=== PATIENT | female | born 1935 | race Caucasian/White ===

== ENCOUNTER 2016-05-17 18:49 | Emergency (ER) | payer OTHER ==
[~2016-05-17] VITALS: Ht 144.8 cm; Wt 47.0 kg
[~2016-05-17 18:49] MED LIST: ASCA500 PO; OMEG10007 PO; VITA100C4 PO; XNX25 PO
[2016-05-17 18:55] VITALS: TEMP 36.7; Ht 144.8 cm; Wt 47.0 kg
[2016-05-17] MEDS ORDERED: OPTIRAY 320 IV PRN (20:15)
[2016-05-17 20:31] LABS: BASO % 0.4 %; BASO ABS # 0.03 K/uL (0-0.2); COMPLETE YES; EOS % 1.9 %; HEMATOCRIT 36.8 % (37-47); IG% 0.1 %; LYMPH % 22.8 %; LYMPH ABS # 1.64 K/uL (1.2-3.4); MEAN CELL VOLUME 83.4 fL (80-100); MEAN CORPUSCULAR HEMOGLOBIN 27.9 pg (25-34); MEAN CORPUSCULAR HGB CONC 33.4 g/dl (32-36); MEAN PLATELET VOLUME 10.1 fL (7.4-10.4); MONO % 7.7 %; NEUT % 67.1 %; PLATELET COUNT 218 K/uL (130-400); RED BLOOD COUNT 4.41 M/uL (4.2-5.4); WHITE BLOOD COUNT 7.18 K/uL (4.8-10.8)
--- NOTE | 2016-05-17 20:31 | EMERGENCY ROOM VISIT NOTE ---
History Report prepared by Leigh: Sergio Wyatt Under the Supervision of: Dr. Shola Fay M.D. First contact with patient: 19:54 Chief Complaint: FALL Stated Complaint: DIZZINESS,BACKPAIN, 2 FALLS History of Present Illness The patient is a 80 year old female who presents to the Emergency Room with complaints of severe back pain starting about a week and a half ago. The patient has chronic knee problems which have been making her increasingly off balance for the past few weeks. She normally uses a walker or crutches to ambulate. She reports hitting her head in both falls. She also complains of neck pain and left sided abdominal pain. She has worsening pain with movement. She denies loss of consciousness, chest pain, shortness of breath, or any other complaints. Source of History: patient, family Onset: about a week and a half ago Position: back Symptom Intensity: severe Modifying Factors (Worsening): movement Associated Symptoms: + abdominal pain, + neck pain, No LOC, No SOB, No chest pain Review of Systems See HPI for pertinent positives & negatives. A total of 10 systems reviewed and were otherwise negative. Past Medical & Surgical Medical Problems: (1) Fibromyalgia (2) Left wrist pain (3) Left wrist sprain (4) Right wrist pain (5) Right wrist sprain (6) TIA (transient ischemic attack) Old medical records were reviewed. Nurse's notes were reviewed and I agree with. Family History FH: heart disease Social History Smoking Status: Never Smoker Alcohol Use: none Drug Use: none Housing Status: lives with family Current/Historical Medications Scheduled Ascorbic Acid (Ascorbic Acid), 1,000 MG PO DAILY Fish Oil ([place]-3), 1 CAP PO DAILY Tocopheryl Acet,Dl-Alpha (Vitamin E), 100 INTER.UNIT PO DAILY Scheduled PRN Alprazolam (Xanax *), 0.25 MG PO BID PRN for Anxiety Meclizine HCl (Meclizine HCl), 25 MG PO TID PRN for Nausea Allergies Coded Allergies: Acetaminophen (Unverified Allergy, Severe, "HALLUCINATION,DREAM HORRIBLY" , 05/17/16) Hydrocodone (Unverified Allergy, Severe, "HALLUCINATION,DREAM HORRIBLY", ) Oxycodone (Unverified Allergy, Severe, "HALLUCINATION,DREAM HORRIBLY", 05/17) Physical Exam Vital Signs Date Time Temp Pulse Resp B/P Pulse Ox O2 Delivery O2 Flow Rate FiO2 05/18/16 00:00 68 18 164/86 95 05/17/16 23:15 79 18 160/115 96 Room Air 05/17/16 20:39 65 05/17/16 20:28 73 154/57 98 05/17/16 18:55 36.7 76 18 162/74 95 Room Air Physical Exam General: Non-ill appearing, older female, in no acute distress. HEENT: Normal cephalic atraumatic. Pupils are equal round and reactive to light. Sclerae anicteric. Extraocular movements are intact. Oropharynx is pink with moist mucous membranes. No swelling of the mouth lips or tongue. Neck: Supple with a midline trachea. No meningeal signs or stiffness, no JVD or bruits. No Stridor. Chest: Clear to auscultation bilaterally. No wheezes or rhonchi. No increased work of breathing. Heart: regular rate and rhythm. Abdomen: Soft nontender, nondistended without rebound guarding or rigidity. Extremities: No cyanosis clubbing or edema. No calf tenderness. Chronic deformity of the right knee with lateral displacement of the distal part. Spine/Back. Non tender to palpation. No CVA tenderness Skin: Good turgor without rashes. Neurologic exam: Cranial nerves two through 12 are intact. Motor and sensation are intact and symmetrical throughout. Medical Decision & Procedures ER Provider Diagnostic Interpretation: X ray results as stated below per my interpretation and radiologist interpretation. CT results as stated below per my review and radiologist interpretation: ABDOMEN AND PELVIS CT WITH IV CONTRAST CT DOSE: HISTORY: Trauma eval for trauma TECHNIQUE: Multiaxial CT images of the abdomen and pelvis were performed following the use of intravenous contrast. COMPARISON STUDY: None. FINDINGS: Mild bibasilar atelectasis. Liver and spleen are unremarkable. Stable 1.5 cm cystic nodule mid pancreas. Nonobstructive bowel pattern. Bladder is midline. The lateral hip arthroplasties. IMPRESSION: No acute posttraumatic process of the abdomen or pelvis. Stable 1.5 cm cystic nodule mid pancreas Electronically signed by: Luke Rodriguez M.D. 05/17/2016 9:[address] DOSE: HISTORY: Trauma. Pain. eval for trauma TECHNIQUE: Multiaxial CT images of the cervical spine were performed and reformatted in the sagittal and coronal plane without the use of contrast. COMPARISON: None. FINDINGS: Vertebral body stature is unremarkable. Reversal of normal cervical curvature. Grade 1/grade 2 anterolisthesis C4 on C5 felt to be degenerative in nature. Degenerative changes of posterior elements. Generalized degenerative disc changes throughout. Prevertebral soft tissues are unremarkable. IMPRESSION: Severe degenerative change. No acute bony abnormality. Electronically signed by: Luke Rodriguez M.D. 05/17/2016 9:[address] WITH CONTRAST CT DOSE: HISTORY: Trauma. Pain. eval for trauma TECHNIQUE: Multiaxial CT images of the chest were performed following the intravenous administration of contrast. COMPARISON: None. FINDINGS: Scattered platelike atelectasis. Thoracic aorta is unremarkable. No significant mediastinal or hilar adenopathy. No evidence pneumothorax. Several old right-sided rib fractures. No well-defined acute bony abnormality. IMPRESSION: No significant abnormality identified within the chest. Electronically signed by: Luke Rodriguez M.D. 05/17/2016 9:46 PM CHEST ONE VIEW PORTABLE CLINICAL HISTORY: CHEST PAIN dyspnea COMPARISON STUDY: 01/30/2011 FINDINGS: Chronic bilateral fibrotic change. No focal infiltrate. Chronic atelectasis left base. Calcification mitral annulus. Severe degenerative change of the shoulders bilaterally. IMPRESSION: Chronic change. No acute process. Electronically signed by: Luke Rodriguez M.D. 05/17/2016 8:[address]AST CT DOSE: HISTORY: Trauma. Mental status change. eval for trauma TECHNIQUE: Multiaxial CT images of the head were performed without the use of intravenous contrast. Comparison: None. Findings: The paranasal sinuses and mastoid air cells are clear. The calvarium and skull base are intact. The ventricles and sulci are within normal limits. There is no mass, hematoma, midline shift, or acute infarct. Impression: No acute intracranial abnormality. Electronically signed by: Luke Rodriguez M.D. 05/17/2016 9:[address] DOSE: 1627.55 mGy.cm HISTORY: Pain trauma TECHNIQUE: Multiaxial CT images of the lumbar spine were performed and reformatted in the sagittal and coronal plane without the use of contrast. COMPARISON: None. FINDINGS: Moderate S-shaped scoliosis. Generalized degenerative change. Mild concave deformity L5 considered nonacute. Slight compression deformity L1 potentially subacute. As shape scoliosis. IMPRESSION: Significant degenerative change throughout the entire lumbar spine. 2. Slight wedge deformity superior aspect of L1 potentially subacute. No compromise of the spinal canal. 3. Old mild wedge deformity L5. Electronically signed by: Luke Rodriguez M.D. 05/17/2016 9:39 PM Laboratory Results 05/17/16 20:20 Red Blood Count 4.41, Mean Corpuscular Volume 83.4, Mean Corpuscular Hemoglobin 27.9, Mean Corpuscular Hemoglobin Concent 33.4, Mean Platelet Volume 10.1, Neutrophils (%) (Auto) 67.1, Lymphocytes (%) (Auto) 22.8, Monocytes (%) (Auto) 7.7, Eosinophils (%) (Auto) 1.9, Basophils (%) (Auto) 0.4, Neutrophils # (Auto) 4.81, Lymphocytes # (Auto) 1.64, Monocytes # (Auto) 0.55, Eosinophils # (Auto) 0.14, Basophils # (Auto) 0.03 05/17/16 20:20 Test 05/17/16 20:20 05/17/16 20:24 White Blood Count 7.18 K/uL (4.8-10.8) Red Blood Count 4.41 M/uL (4.2-5.4) Hemoglobin 12.3 g/dL (12.0-16.0) Hematocrit 36.8 % (37-47) Mean Corpuscular Volume 83.4 fL (80-100) Mean Corpuscular Hemoglobin 27.9 pg (25-34) Mean Corpuscular Hemoglobin Concent 33.4 g/dl (32-36) Platelet Count 218 K/uL (130-400) Mean Platelet Volume 10.1 fL (7.4-10.4) Neutrophils (%) (Auto) 67.1 % Lymphocytes (%) (Auto) 22.8 % Monocytes (%) (Auto) 7.7 % Eosinophils (%) (Auto) 1.9 % Basophils (%) (Auto) 0.4 % Neutrophils # (Auto) 4.81 K/uL (1.4-6.5) Lymphocytes # (Auto) 1.64 K/uL (1.2-3.4) Monocytes # (Auto) 0.55 K/uL (0.11-0.59) Eosinophils # (Auto) 0.14 K/uL (0-0.5) Basophils # (Auto) 0.03 K/uL (0-0.2) RDW Standard Deviation 43.0 fL (36.4-46.3) RDW Coefficient of Variation 14.0 % (11.5-14.5) Immature Granulocyte % (Auto) 0.1 % Immature Granulocyte # (Auto) 0.01 K/uL (0.00-0.02) Prothrombin Time 10.4 SECONDS (9.0-12.0) Prothromb Time International Ratio 1.0 (0.9-1.1) Activated Partial Thromboplast Time 28.1 SECONDS (21.0-31.0) Partial Thromboplastin Ratio 1.1 Anion Gap 8.0 mmol/L (3-11) Est Creatinine Clear Calc Drug Dose 56.9 ml/min Estimated GFR () 104.8 Estimated GFR (Non- 90.4 BUN/Creatinine Ratio 31.1 (10-20) Calcium Level 9.1 mg/dl (8.5-10.1) Total Bilirubin 0.4 mg/dl (0.2-1) Direct Bilirubin 0.1 mg/dl (0-0.2) Aspartate Amino Transf (AST/SGOT) 21 U/L (15-37) Alanine Aminotransferase (ALT/SGPT) 19 U/L (12-78) Alkaline Phosphatase 139 U/L (45-117) Troponin I < 0.015 ng/ml (0-0.045) Total Protein 7.0 gm/dl (6.4-8.2) Albumin 3.7 gm/dl (3.4-5.0) Lipase 222 U/L (73-393) Bedside Troponin I 0.140 ng/ml (0-0.045) Laboratory studies as stated above per my review. ECG Indication: back/shoulder pain Rate (beats per minute): 63 Rhythm: normal sinus Findings: other (Nonspecific ST abnormality) Comparison ECG Date: January 30, 2011 Change: no significant change ED Course 1953: Past medical records reviewed. The patient was evaluated in room A04A, and a complete history and physical examination were performed. 2330: Upon reevaluation, the patient is resting comfortably. I discussed the results and treatment plan with her. She verbalized agreement of the treatment plan. The patient was discharged home. Medical Decision Differential diagnosis includes but is not limited to syncope, arrhythmia, concussion, traumatic injuries, rib fractures , orthopedic injuries. This patient comes in as described above. She was placed in room A4. She is here for treatment and evaluation of 2 falls. She does tend to fall as she has a chronic deformity of her right leg that they're supposed to get surgery on at some point. She has to walk with a crutch for this. She did hit her head and was concerned about that she also some other vague mild neck pain and pain in her lower chest/ upper abdomen from where she fell. She's had no chest pain or shortness of breath. She's had some back pain as well.. She has no neurologic deficits IV access was established. Blood work was obtained.EKG was obtained as well as multiple imaging. Her EKG does not suggest acute coronary syndrome or arrhythmia. Her initial point of care troponin was borderline elevated. We have been having some issues with the point of care machine today and I did run it in the lab and that troponin was 0 and I tend to believe the lab more than the point care machine. Additionally, she does not have any chest pain or syncope. I do not think is likely an acute cardiac event. CAT scan of the head , neck, chest, abdomen and pelvis were unremarkable exception of some degenerative changes in her back and may be at subacute compression fracture at the upper lumbar area. She does not want any pain medication and will just use ibuprofen or Aleve she says. She's no acute electrolyte or metabolic abnormalities. She feels good and would like to go home. Her blood pressures moderately elevated some this may be pain related. She's never had high blood pressure before and have her follow up with her regular doctor the next 1-2 days for recheck as well as to recheck her blood pressure. The patient and her son are happy with the plan and she was discharged home. Impression Primary Impression: Lumbar compression fracture Additional Impressions: Back pain, Concussion Scribe Attestation The scribe's documentation has been prepared under my direction and personally reviewed by me in its entirety. I confirm that the note above accurately reflects all work, treatment, procedures, and medical decision making performed by me. Departure Information Dispostion Home / Self-Care Referrals Erica Eli M.D. (PCP) Forms HOME CARE DOCUMENTATION FORM, IMPORTANT VISIT INFORMATION Patient Instructions A Signature Page, [facility] Additional Instructions Rest. Use ibuprofen if needed for pain Return if: Increasing pain, worsening symptoms, chest pain, shortness of breath , any new problems or concerns Follow-up with your doctor in 1-2 days to get rechecked and to get your blood pressure rechecked
--- NOTE | 2016-05-17 20:39 | DIAGNOSTIC IMAGING REPORT ---
CHEST ONE VIEW PORTABLE CLINICAL HISTORY: CHEST PAIN dyspnea COMPARISON STUDY: 01/30/2011 FINDINGS: Chronic bilateral fibrotic change. No focal infiltrate. Chronic atelectasis left base. Calcification mitral annulus. Severe degenerative change of the shoulders bilaterally. IMPRESSION: Chronic change. No acute process. Electronically signed by: Luke Rodriguez M.D. 05/17/2016 8:37 PM
[2016-05-17 20:40] LABS: PARTIAL THROMBOPLASTIN RATIO 1.1; PROTHROMBIN TIME (PATIENT) 10.4 SECONDS (9.0-12.0)
[2016-05-17 20:51] LABS: BUN/CREATININE RATIO 31.1 (10-20); CALCIUM 9.1 mg/dl (8.5-10.1); CREATININE 0.54 mg/dl (0.60-1.20); POTASSIUM 3.9 mmol/L (3.5-5.1)
--- NOTE | 2016-05-17 21:41 | DIAGNOSTIC IMAGING REPORT ---
LUMBAR SPINE CT CT DOSE: 1627.55 mGy.cm HISTORY: Pain trauma TECHNIQUE: Multiaxial CT images of the lumbar spine were performed and reformatted in the sagittal and coronal plane without the use of contrast. COMPARISON: None. FINDINGS: Moderate S-shaped scoliosis. Generalized degenerative change. Mild concave deformity L5 considered nonacute. Slight compression deformity L1 potentially subacute. As shape scoliosis. IMPRESSION: Significant degenerative change throughout the entire lumbar spine. 2. Slight wedge deformity superior aspect of L1 potentially subacute. No compromise of the spinal canal. 3. Old mild wedge deformity L5. Electronically signed by: Luke Rodriguez M.D. 05/17/2016 9:39 PM
--- NOTE | 2016-05-17 21:42 | DIAGNOSTIC IMAGING REPORT ---
HEAD CT NONCONTRAST CT DOSE: HISTORY: Trauma. Mental status change. eval for trauma TECHNIQUE: Multiaxial CT images of the head were performed without the use of intravenous contrast. Comparison: None. Findings: The paranasal sinuses and mastoid air cells are clear. The calvarium and skull base are intact. The ventricles and sulci are within normal limits. There is no mass, hematoma, midline shift, or acute infarct. Impression: No acute intracranial abnormality. Electronically signed by: Luke Rodriguez M.D. 05/17/2016 9:40 PM
--- NOTE | 2016-05-17 21:46 | DIAGNOSTIC IMAGING REPORT ---
CERVICAL SPINE CT CT DOSE: HISTORY: Trauma. Pain. eval for trauma TECHNIQUE: Multiaxial CT images of the cervical spine were performed and reformatted in the sagittal and coronal plane without the use of contrast. COMPARISON: None. FINDINGS: Vertebral body stature is unremarkable. Reversal of normal cervical curvature. Grade 1/grade 2 anterolisthesis C4 on C5 felt to be degenerative in nature. Degenerative changes of posterior elements. Generalized degenerative disc changes throughout. Prevertebral soft tissues are unremarkable. IMPRESSION: Severe degenerative change. No acute bony abnormality. Electronically signed by: Luke Rodriguez M.D. 05/17/2016 9:44 PM
--- NOTE | 2016-05-17 21:48 | DIAGNOSTIC IMAGING REPORT ---
CHEST CT WITH CONTRAST CT DOSE: HISTORY: Trauma. Pain. eval for trauma TECHNIQUE: Multiaxial CT images of the chest were performed following the intravenous administration of contrast. COMPARISON: None. FINDINGS: Scattered platelike atelectasis. Thoracic aorta is unremarkable. No significant mediastinal or hilar adenopathy. No evidence pneumothorax. Several old right-sided rib fractures. No well-defined acute bony abnormality. IMPRESSION: No significant abnormality identified within the chest. Electronically signed by: Luke Rodriguez M.D. 05/17/2016 9:46 PM
--- NOTE | 2016-05-17 21:52 | DIAGNOSTIC IMAGING REPORT ---
ABDOMEN AND PELVIS CT WITH IV CONTRAST CT DOSE: HISTORY: Trauma eval for trauma TECHNIQUE: Multiaxial CT images of the abdomen and pelvis were performed following the use of intravenous contrast. COMPARISON STUDY: None. FINDINGS: Mild bibasilar atelectasis. Liver and spleen are unremarkable. Stable 1.5 cm cystic nodule mid pancreas. Nonobstructive bowel pattern. Bladder is midline. The lateral hip arthroplasties. IMPRESSION: No acute posttraumatic process of the abdomen or pelvis. Stable 1.5 cm cystic nodule mid pancreas Electronically signed by: Luke Rodriguez M.D. 05/17/2016 9:50 PM
[2016-05-17] MEDS ORDERED: ASCO100061 PO (21:54)
[2016-05-17] MEDS ORDERED: ANT25 PO (21:55)
[2016-05-18] VITALS: BP 164/86; PULSE 68; O2SAT 95
== END 2016-05-18 | disposition home or self-care (01) ==
LOC: C.EDB 18:51 → C.EDA 05-18
DX: M48.56XA Collapsed vertebra, not elsewhere classified, lumbar region, initial encounter for fracture (principal); S06.0X0A Concussion without loss of consciousness, initial encounter; R29.6 Repeated falls; W19.XXXA Unspecified fall, initial encounter; M21.961 Unspecified acquired deformity of right lower leg; R93.5 Abnormal findings on diagnostic imaging of other abdominal regions, including retroperitoneum; Z86.73 Personal history of transient ischemic attack (TIA), and cerebral infarction without residual deficits; Z88.5 Allergy status to narcotic agent; Z88.6 Allergy status to analgesic agent

== ENCOUNTER → 2016-10-17 | Outpatient (CLI) | payer OTHER ==
[~2016-10-17] MED LIST changes: +ANT25 PO; -ASCA500 PO; +ASCO100061 PO
[2016-10-17 18:11] LABS: BLOOD UREA NITROGEN 11 mg/dl (7-18); CREATININE 0.59 mg/dl (0.60-1.20)
== END | disposition home or self-care (01) ==
LOC: C.LABMFLN 12:22
PROVIDERS: ATTEND Physician Assistant
DX: F07.81 Postconcussional syndrome (principal)

== ENCOUNTER → 2017-02-20 | Outpatient (CLI) | payer OTHER | END | disposition home or self-care (01) | LOC: C.PATHSPEC 07:58 | PROVIDERS: ATTEND Plastic Surgery | DX: H61.001 Unspecified perichondritis of right external ear (principal) ==

== ENCOUNTER → 2017-04-18 | Outpatient (CLI) | payer OTHER ==
[2017-04-18 18:19] LABS: BASO % 0.7 %; BASO ABS # 0.06 K/uL (0-0.2); COMPLETE YES; EOS % 1.1 %; HEMATOCRIT 38.9 % (37-47); IG% 0.2 %; LYMPH % 17.9 %; LYMPH ABS # 1.56 K/uL (1.2-3.4); MEAN CELL VOLUME 86.3 fL (80-100); MEAN CORPUSCULAR HEMOGLOBIN 27.7 pg (25-34); MEAN CORPUSCULAR HGB CONC 32.1 g/dl (32-36); MEAN PLATELET VOLUME 10.6 fL (7.4-10.4); NEUT % 71.1 %; PLATELET COUNT 260 K/uL (130-400); RED BLOOD COUNT 4.51 M/uL (4.2-5.4); WHITE BLOOD COUNT 8.73 K/uL (4.8-10.8)
[2017-04-18 18:24] LABS: BLOOD UREA NITROGEN 10 mg/dl (7-18); BUN/CREATININE RATIO 17.6 (10-20); CALCIUM 9.4 mg/dl (8.5-10.1); CARBON DIOXIDE 30 mmol/L (21-32); CHLORIDE 100 mmol/L (98-107); CREATININE 0.56 mg/dl (0.60-1.20); GLUCOSE 94 mg/dl (70-99); PHOSPHORUS 3.4 mg/dl (2.5-4.9); POTASSIUM 3.8 mmol/L (3.5-5.1); SODIUM 134 mmol/L (136-145)
== END | disposition home or self-care (01) ==
LOC: C.LABMFLN 16:08
PROVIDERS: ATTEND Family Medicine
DX: R03.0 Elevated blood-pressure reading, without diagnosis of hypertension (principal)

== ENCOUNTER 2023-11-04 13:32 | Inpatient (IN) ==
--- OUTSIDE RECORDS SUMMARY | 2023-11-04 13:38 | External Medical Summary | Summary of Care ---
Author Name Unknown Organization [facility] Address [address] [facility] [place] [address] Phone [phone] Care Team Providers Care Contact Lens Polisher Name Role Phone Davonte Nation PA-C Primary Care Provider [phone] Reason for Referral * Evaluate & Treat - Unlimited Visits (Within 10 days (routine)) - Authorized Specialty Diagnoses / Procedures Referred By Ramez grace Referred To Contact Physical Therapy / Physical Medicine And Rehab Diagnoses Ambulatory dysfunction History of falling Generalized osteoarthrosis, involving multiple sites Degeneration of cervical intervertebral disc Degeneration of lumbar or lumbosacral intervertebral disc Wilbert Cade MD [address] [place] [address] Referral ID Status Reason Start Date Expiration Date Visits Requested Visits Authorized [id number] Authorized Specialty Services Required 10/24/[phone] Question Answer Referral Priority Within 10 days (routine) Where should this appointment be scheduled? External Comments OT/PT evaluation for power wheelchair Reason for Visit * Reason Onset Date Comments Forms Request 10/23/2023 Encounter Details Date Type Department Care Team (Late st Contact Info) Description 10/23/2023 Telephone [facility] Blanca Rudolph [address] [address] Davonte Nation PA-C [address] [address] (work) Forms Request Allergies Active Allergy Reactions Criticality Noted Date Comments Zolpidem Other (Please comment) 09/04/2016 hallucinations Oxycodone-Acetaminophe n Other (Please comment) 02/26/2007 hallusanates documented as of this encounter (statuses as of 10/24/2023) Medications Medication Sig Dispensed Refills Start Date End Date Status Vitamin B-6 50 MG Oral Tablet Take 1 Tablet by mouth in the morning. Active Zinc 50 MG Oral Tablet Take 1 Tablet by mouth every night at bedtime. Active Acetaminophen 325 MG Oral Tablet (Tylenol) Take 2 Tablets by mouth every 6 hours as needed for Fever (Temp Greater than ) (100.4). Not to exceed 3g/24hrs Active Ibuprofen 600 MG Oral Tablet (Motrin) Take 1 Tablet by mouth every 6 hours as needed (for moderate pain (4-6)). Active Ensure Original Oral Liquid Take by mouth. As needed for dietary supplement. Do not exceed 2 bottles per day. Active ALPRAZolam 0.5 MG Oral Tablet (xaNAX)Indications:A nxiety Take 1 Tablet by mouth in the morning. BRAND NAME. 30 Tablet 5 06/26/2023 Active ALPRAZolam 0.25 MG Oral Tablet (xaNAX)Indications:G eneralized anxiety disorder Take one tablet at 12 PM and take one tablet at 6 PM. Brand Necessary 60 Tablet 5 10/23/2023 Active documented as of this encounter (statuses as of 10/24/2023) Active Problems Problem Noted Date Diagnosed Date History of falling 10/14/2023 Elevated blood pressure, situational 02/17/2021 Malignant neoplasm of endocrine pancreas 021 Ambulatory dysfunction 10/26/2019 IPMN (intraductal papillary mucinous neoplasm) 0 10/24/2019 Overview: Noted since 2006, unchanged. Age-related osteoporosis wit hout current pathological fracture 05/22/2019 Positive colorectal cancer screening using Colog uard test 11/07/2018 Generalized osteoarthrosis, involving multiple s ites 12/02/2013 Generalized anxiety disorder 12/02/2013 Degeneration of cervical intervertebral disc Pure hypercholesterolemia 12/02/2013 Degeneration of lumbar or lumbosacral interverte bral disc 12/02/2013 documented as of this encounter (statuses as of 10/24/2023) Resolved Problems Problem Noted Date Diagnosed Date Resolved Date Contusion of right orbital tissues 09/17/2022 01/02/2023 Dementia 09/17/2022 01/02/2023 Fall 09/17/2022 01/02/2023 Syncope and collapse 11/06/2018 019 Hyponatremia 11/06/2018 11/07/2018 Osteoporosis 12/02/2013 05/22/2019 Myalgia and myositis, unspecified 12/02/2013 04/20/2021 ADVANCE DIRECTIVE INFORMATION 09/17/2006 05/22/2019 Overview: No, Advance Directive brochure offered , patient declined. 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 Unclear if further evaluation is needed. documented as of this encounter (statuses as of 10/24/2023) Immunizations Name Administration Dates Next Due Pneumococcal Polysaccharide PPV23 (Pneumovax) () documented as of this encounter Social History Tobacco Use Types Packs/Day Years Used Date Smoking Tobacco: Never Smokeless Tobacco: Never Alcohol Use Standard Drinks/Week Comments No 0 (1 standard drink = 0.6 oz pur e alcohol) PHQ-2 Answer Date Recorded PHQ Adult Total Score 2 12/02/2021 Hunger Vital Sign Answer Date Recorded Within the past 12 months, y ou worried that your food would run out before you got the money to buy more. Never true 12/21/19 23 Within the past 12 months, t he food you bought just didn't last and you didn't have money to get more. Never true 12/20/2022 Sex and Gender Information Value Date Recorded Sex Assigned at Female 12/13/2018 1:55 PM EDT Gender Identity Female 12/13/2018 1:55 PM EDT Sexual Orientation Straight 12/13/2018 1: 55 PM EDT Job Start Date Occupation Industry Not on file Not on file Not on file documented as of this encounter Functional Status Functional Status Response Date of Assess ment Are you deaf or do you have serious difficulty hearing? 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 No 09/17/2022 Do you have serious difficul ty walking or climbing stairs? (5 years old or older) Yes 09/18/2022 Do you have difficulty dress ing or bathing? (5 years old or older) Yes-family helps 09/17/2022 Because of a physical, menta l, or emotional condition, do you have difficulty doing errands alone such as visiting a doctor s office or shopping? (15 years old or older) Yes-calls for transport 09/17/2022 Cognitive Status Response Date of Assessm ent Because of a physical, menta l, or emotional condition, do you have serious difficulty concentrating, remembering, or making decisions? (5 years old or older) No 09/17/2022 documented as of this encounter Miscellaneous Notes * Telephone Encounter - Davonte Nation PA-C - 10/24/2023 5:53 AM EDT DME signed * Telephone Encounter - Christine Hazel RN - 10/23/2023 9:09 AM EDT Call from pt's son Luke Pt received wheelchair from [facility] recently Per Luke, they actually wanted a power wheelchair Pt is unable to use manual wheelchair Reports she cannot reach the wheels very well and she has issues with her shoulders that prevent her from being able to maneuver wheelchair Call to [facility] [place], spoke with Tomeka in rehab dept For a power wheelchair, they need an order for a PT/OT eval, demographics, and most recent office visit notes faxed to [phone] Dr. Cade, Pending order to you as you saw pt for [id number] PT/OT eval order pended, please sign if agreeable documented in this encounter Plan of Treatment Upcoming Encounters Date Type Department Care Team (Late st Contact Info) Description 10/25/2023 12:00 PM EDT Home Visit [facility] [address] [place] [facility] [place] [address] [place] Esquivel [facility] Orchid Worker [address] [place] [address] 01/08/2024 12:00 PM EDT Office Visit [facility] [place] [address] [phone] Davonte Nation PA-C [address] [address] Scheduled Referrals Name Type Priority Associated Diagnoses Orde r Schedule PHYSICAL THERAPY REFERRAL OP Referral Within 10 days (routine) Ambulatory dysfunction History of falling Generalized osteoarthrosis, involving multiple sites Degeneration of cervical intervertebral disc Degeneration of lumbar or lumbosacral intervertebral disc Ordered: 10/24/2023 Health Maintenance Due Date Last Done Comments Albumin/Creatinine Ratio 09/03/1953 DTaP,Tdap,and Td Vaccines (1 - Tdap) 1956 Zoster Vaccines (1 of 2) 09/03/1987 Pneumococcal Vaccine: 65+ Years (1 of 1 - PCV) 2002 DXA Scan 07/11/2013 07/11/2011 *BISPHONATE OR OTHER ACCEPTABLE MEDICATION NEEDED FOR OSTEOPOROSIS (REFER TO SMARTSET #1146) 05/15/2014 Depression Screening 12/02/2022 12/02/2021 COVID-19 Vaccine ( - season) 2023 Influenza Vaccine (FLU shot) (Season Ended) 2024 VITAMIN D LEVEL ONCE IN A LIFETIME-USE SMARTSET# [id number] Completed 01/02/2023, 12/02/2021, 11/08/2020, Additional history exists GARDASIL-HPV IMMUNIZATION SERIES Aged Out No longer eligible based on patient's age to complete this topic Hepatitis B Aged Out No longer eligi ble based on patient's age to complete this topic MENINGOCOCCAL (MENACTRA/MENVEO) Aged Out No longer eligible based on patient's age to complete this topic documented as of this encounter Medical Devices Not on filedocumented as of this encounter Visit Diagnoses Diagnosis Ambulatory dysfunction- Primary History of falling Personal history of fall Elevated blood pressure, situational Elevated blood pressure reading without diagnosis of hypertension Generalized osteoarthrosis, involving multiple sites Degeneration of cervical intervertebral disc Degeneration of lumbar or lumbosacral intervertebral disc documented in this encounter Advance Directives Documents on File Type Date Recorded Patient Fruit Receiver Expl anation POLST 10/06/2022 [place] OR [facility] FOR LIFE-SUSTAINING TREATMENT * No Code (Latest Code Status on File) Date Activated Date Inactivated Comments 09/17/2022 6:19 PM 09/19/2022 10:01 PM This order re flects the patients wishes and were consensually agreed upon. Question Answer Comments Discussion of Advance Directives occurred with: Family * Full Code Date Activated Date Inactivated Comments 11/06/2018 2:57 AM 11/07/2018 8:53 PM This order r eflects the patients wishes and were consensually agreed upon. Question Answer Comments Discussion of Advance Directives occurred with: Not Discussed Care Teams Contact Lens Polisher Relationship Specialty Start Date End Date Davonte Nation PA-C [address] [address] PCP - General Physician Orchid Worker 04/22/22 documented as of this encounter
--- OUTSIDE RECORDS SUMMARY | 2023-11-04 13:38 | External Medical Summary | Summary of Care ---
Author Name Unknown Organization [facility] Address [address] [facility] [place] [address] Phone [phone] Care Team Providers Care Civil Engineer Helper Name Role Phone Davonte Olsen PA-C Primary Care Provider [phone] Reason for Referral * Evaluate & Treat - Unlimited Visits (Within 10 days (routine)) - Authorized Specialty Diagnoses / Procedures Referred By Ramez grace Referred To Contact Physical Therapy / Physical Medicine And Rehab Diagnoses Ambulatory dysfunction History of falling Generalized osteoarthrosis, involving multiple sites Degeneration of cervical intervertebral disc Degeneration of lumbar or lumbosacral intervertebral disc Wilbert Cade MD [address] [place] [address] Referral ID Status Reason Start Date Expiration Date Visits Requested Visits Authorized [id number] Authorized Specialty Services Required 10/24/2023 999 999 Question Answer Referral Priority Within 10 days (routine) Where should this appointment be scheduled? External Comments OT/PT evaluation for power wheelchair Reason for Visit * Reason Onset Date Comments Forms Request 10/23/2023 Encounter Details Date Type Department Care Team (Late st Contact Info) Description 10/23/2023 Telephone [facility] Blanca Rudolph [address] [address] Davonte Olsen PA-C [address] [address] (work) Forms [...] encounter Miscellaneous Notes * Telephone Encounter - Ivette Shafer OSA - 10/24/2023 7:15 AM EDT Order placed by laurence olsen faxed * Telephone Encounter - Davonte Olsen PA-C - 10/24/2023 5:53 AM EDT DME signed * Telephone Encounter - Christine Hazel RN - 10/23/2023 9:09 AM EDT Call from pt's son Luke Pt received wheelchair from [facility] recently Per Luke, they actually wanted a power wheelchair Pt is unable to use manual wheelchair Reports she cannot reach the wheels very well and she has issues with her shoulders that prevent her from being able to maneuver wheelchair Call to [facility] [place], spoke with Tomeka in rehab dept For a power wheelchair, they need an order for a PT/OT eval, demographics, and most recent office visit notes faxed to [phone] Dr. Cade, Pending order to you as you saw pt for [id number] PT/OT eval order pended, please sign if agreeable documented in this encounter Plan of Treatment Upcoming Encounters Date Type Department Care Team (Late st Contact Info) Description 10/25/2023 12:00 PM EDT Home Visit Care Coordination [facility] Integration [address] [place] [address] [facility] [address] [place] [address] 01/08/2024 12:00 PM EDT Office Visit [facility] [address] [phone] Davonte Olsen PA-C [address] [place] [address] Scheduled Referrals Name Type Priority Associated [...] 05/15/2014 Depression Screening 12/02/2022 12/02/2021 COVID-19 Vaccine (1 - 2022-24 season) 2023 Influenza Vaccine (FLU shot) (Season Ended) 2024 VITAMIN D LEVEL ONCE IN A LIFETIME-USE SMARTSET# [id number] Completed 01/02/2023, 12/02/2021, 11/08/2020, Additional history exists [...] Documents on File Type Date Recorded Patient Gunnery/Ordnance Officer Expl anation POLST 10/06/2022 [place] OR [facility] FOR LIFE-SUSTAINING TREATMENT * No Code (Latest [...] Directives occurred with: Not Discussed Care Teams Civil Engineer Helper Relationship Specialty Start Date End Date Davonte Olsen PA-C [address] [address] PCP - General Physician Information Technology Architect 04/22/22 documented as of this encounter
--- OUTSIDE RECORDS SUMMARY | 2023-11-04 13:38 | External Medical Summary | Summary of Care ---
Author Name Unknown Organization [facility] Address [address] [address] Phone [phone] Care Team Providers Care Regulatory Specialist Name Role Phone Davonte Nation PA-C Primary Care Provider [phone] Reason for Visit * Reason Comments eRx-Medication Refill Encounter Details Date Type Department Care Team (Late st Contact Info) Description 10/21/2023 [facility]ill [facility] [address] Davonte Nation PA-C [address] [email or web address] [place] [address] Anxiety Allergies Active Allergy Reactions Criticality Noted Date Comments Zolpidem Other (Please comment) 09/04/2016 hallucinations Oxycodone-Acetaminophe n Other (Please comment) 02/26/2007 hallusanates documented as of this encounter (statuses as of 10/23/2023) Medications Medication Sig Dispensed Refills Start Date [...] 06/26/2023 Active ALPRAZolam 0.25 MG Oral Tablet (xaNAX) Take one tablet at 12 PM and take one tablet at 6 PM. Brand Necessary 60 Tablet 2 06/27/2023 Active documented as of this encounter (statuses as of 10/23/2023) Active Problems Problem Noted Date Diagnosed Date [...] as of this encounter (statuses as of 10/23/2023) Resolved Problems Problem Noted Date Diagnosed Date [...] no change in this from 2006 to 2017. Unclear if further evaluation is needed. documented as of this encounter (statuses as of 10/23/2023) Immunizations Name Administration Dates Next Due Pneumococcal [...] encounter Miscellaneous Notes * Telephone Encounter - Jyotsna [facility] - 10/23/2023 7:51 AM EDTRefused Prescriptions: Disp Refills Xanax 0.5 MG Oral Tablet 60 Tab*0 Sig: Take 1 tablet by mouth twice daily as needed for anxietyRefused By: JYOTSNA GILBERT for Refusal: Refill Not Appropriat e documented in this encounter Plan of Treatment Upcoming Encounters Date Type Department Care Team (Late st Contact Info) Description 10/25/2023 12:00 PM EDT Home Visit Care Coordination and Integration [address] [place] [facility] [place] [address] [place] Esquivel [facility] [address] [place] [address] 01/08/2024 12:00 PM EDT Office Visit [facility] [address] [address] Davonte Nation PA-C [address] [place] [id number] Health Maintenance Due Date Last Done Comments [...] D LEVEL ONCE IN A LIFETIME-USE SMARTSET# [id number] Completed 01/02/2023, 12/02/2021, 11/08/2020, Additional history exists [...] as of this encounter Visit Diagnoses Diagnosis Anxiety Anxiety state, unspecified documented in this encounter Advance Directives Documents on File Type Date Recorded Patient Teller Head Expl anation POLST 10/06/2022 [place] OR [facility] FOR LIFE-SUSTAINING TREATMENT * No Code [...] Directives occurred with: Not Discussed Care Teams Regulatory Specialist Relationship Specialty Start Date End Date Davonte Nation PA-C [address] [address] PCP - General Physician Hangersmith 04/22/22 documented as of this encounter
--- OUTSIDE RECORDS SUMMARY | 2023-11-04 13:38 | External Medical Summary | Summary of Care ---
Author Name Unknown Organization [facility] Address [address] [facility] [place] [address] Phone [phone] Care Team Providers Care Metallurgical Tester Name Role Phone Davonte Olsen PA-C Primary Care Provider [phone] Reason for Referral * Evaluate & Treat - Unlimited Visits (Within 10 days (routine)) - Authorized Specialty Diagnoses / Procedures Referred By Ramez grace Referred To Contact Physical Therapy / Physical Medicine And Rehab Diagnoses Ambulatory dysfunction History of falling Generalized osteoarthrosis, involving multiple sites Degeneration of cervical intervertebral disc Degeneration of lumbar or lumbosacral intervertebral disc Wilbert Cade MD [address] [address] Referral ID Status Reason Start Date Expiration Date Visits Requested Visits Authorized [id number] Authorized Specialty Services Required 10/24/[phone] Question Answer Referral Priority Within 10 days (routine) Where should this appointment be scheduled? External Comments OT/PT evaluation for power wheelchair Reason for Visit * Reason Onset Date Comments Forms Request 10/23/2023 Fax 10/23/2023 Encounter Details Date Type Department Care Team (Late st Contact Info) Description 10/23/2023 Telephone [facility] [place] [address] [address] Davonte Olsen PA-C [address] [place] [address] Forms Request; Fax Allergies Active Allergy Reactions Criticality Noted Date Comments Zolpidem Other (Please comment) 09/04/2016 hallucinations Oxycodone-Acetaminophe n Other (Please comment) 02/26/2007 hallusanates documented as of this encounter (statuses as of 10/25/2023) Medications Medication Sig Dispensed Refills Start Date [...] as of this encounter (statuses as of 10/25/2023) Active Problems Problem Noted Date Diagnosed Date [...] as of this encounter (statuses as of 10/25/2023) Resolved Problems Problem Noted Date Diagnosed Date [...] as of this encounter (statuses as of 10/25/2023) Immunizations Name Administration Dates Next Due Pneumococcal [...] the money to buy more. Never true 10/25/19 24 Within the past 12 months, t he food you bought just didn't last and you didn't have money to get more. Never true 10/25/2023 Sex and Gender Information Value Date Recorded [...] encounter Miscellaneous Notes * Telephone Encounter - Ana Akins OSA - 10/25/2023 2:16 PM EDT Faxed notes successfully to [facility] * Telephone Encounter - Celina Mast OSA - 10/25/2023 9:08 AM EDT Caller requesting the following information to be faxed: Name/Company of caller: [facility] Information requested to be faxed: last office visit notes Fax number: [phone] Attention to Name/Company: [employer] Any additional information?: office notes needed to process the order for the power wheelchair * Telephone Encounter - Ivette Shafer OSA - 10/24/2023 7:15 AM EDT Order placed by laurence olsen faxed * Telephone Encounter - Davonte Olsen PA-C - 10/24/2023 5:53 AM EDT DME signed * Telephone Encounter - Christine Hazel RN - 10/23/2023 9:09 AM EDT Call from pt's son Luke [facility] Per Luke, they actually wanted a power wheelchair Pt is unable to use manual wheelchair Reports she cannot reach the wheels very well and she has issues with her shoulders that prevent her from being able to maneuver wheelchair [facility] [place], spoke with Tomeka in rehab dept For a power wheelchair, they need an order for a PT/OT eval, demographics, and most recent office visit notes faxed to [phone] Dr. Cade, Pending order to you as you saw pt for [id number] PT/OT eval order pended, please sign if agreeable documented in this encounter Plan of Treatment Upcoming Encounters Date Type Department Care Team (Late st Contact Info) Description 01/08/2024 12:00 PM EDT Office Visit [facility] [address] [phone] Davonte Olsen PA-C [address] [address] Scheduled Referrals Name Type Priority Associated Diagnoses [...] Depression Screening 12/02/2022 12/02/2021 COVID-19 Vaccine ( season) 2023 Influenza Vaccine (FLU shot) (Season Ended) 2024 VITAMIN D LEVEL ONCE IN A LIFETIME-USE SMARTSET# [id number] Completed 01/02/2023, 12/02/2021, 11/08/2020, Additional history exists [...] Documents on File Type Date Recorded Patient Human Resources Trainee Expl anation POLST 10/06/2022 [place] OR [facility] FOR LIFE-SUSTAINING TREATMENT * [...] Directives occurred with: Not Discussed Care Teams Metallurgical Tester Relationship Specialty Start Date End Date Davonte Olsen PA-C [address] [id number] PCP - General Physician Fine Patcher 04/22/22 documented as of this encounter
--- OUTSIDE RECORDS SUMMARY | 2023-11-04 13:38 | External Medical Summary | Summary of Care ---
Author Name Unknown Organization [facility] Address [address] [facility] [place] [address] Phone [phone] Care Team Providers Care Bait Man Name Role Phone Davonte Nation PA-C Primary Care Provider [phone] Reason for Referral * Evaluate & Treat - Unlimited Visits (Within 10 days (routine)) - Authorized Specialty Diagnoses / Procedures Referred By Ramez grace Referred To Contact Physical Therapy / Physical Medicine And Rehab Diagnoses Ambulatory dysfunction History of falling Generalized osteoarthrosis, involving multiple sites Degeneration of cervical intervertebral disc Degeneration of lumbar or lumbosacral intervertebral disc Wilbert Cade MD [address] [place] [address] Referral ID Status Reason Start Date Expiration Date Visits Requested Visits Authorized [id number] Authorized Specialty Services Required 10/24/2023 999 999 Question Answer Referral Priority Within 10 days (routine) Where should this appointment be scheduled? External Comments OT/PT evaluation for power wheelchair Reason for Visit * Reason Onset Date Comments Forms Request 10/23/2023 Encounter Details Date Type Department Care Team (Late st Contact Info) Description 10/23/2023 Telephone [facility] Blanca Rudolph 21 [place] [address] [...] pt's son Luke Pt received wheelchair from [facility] recently Per Luke, they actually wanted a power wheelchair Pt is unable to use manual wheelchair Reports she cannot reach the wheels very well and she has issues with her shoulders that prevent her from being able to maneuver wheelchair Call to [facility] Adelina, spoke with Tomeka in rehab dept For a power wheelchair, they need an order for a PT/OT eval, demographics, and most recent office visit notes faxed to [phone] Dr. Cade, Pending order to you as you saw pt for [id number] PT/OT eval order pended, please sign if agreeable documented in this encounter Plan of Treatment Upcoming Encounters Date Type Department Care Team (Late st Contact Info) Description 10/25/2023 12:00 PM EDT Home Visit Care Coordination and Integration [address] [facility] [address] German Esquivel [facility] Health Balloon Pilot [address] [place] [address] 01/08/2024 12:00 PM EDT Office Visit [facility] [place] [address] [place] [address] Davonte Nation PA-C [...] D LEVEL ONCE IN A LIFETIME-USE SMARTSET# [id number] Completed 01/02/2023, 12/02/2021, 11/08/2020, Additional history exists [...] Documents on File Type Date Recorded Patient Jet Pilot Expl anation POLST 10/06/2022 [place] OR [facility] FOR LIFE-SUSTAINING TREATMENT * No Code [...] Directives occurred with: Not Discussed Care Teams Bait Man Relationship Specialty Start Date End Date Davonte Nation PA-C 21 [place] [address] PCP - General Physician Balloon Pilot 04/22/22 documented as of this encounter
--- OUTSIDE RECORDS SUMMARY | 2023-11-04 13:38 | External Medical Summary | Summary of Care ---
Author Name Unknown Organization [facility] Address [address] [facility] [place] [address] Phone [phone] Care Team Providers Care Metal Trim Erector Name Role Phone Davonte Nation PA-C Primary Care Provider [phone] Reason for Visit * Reason Onset Date Comments Other 10/23/2023 Pharmacy Encounter Details Date Type Department Care Team (Late st Contact Info) Description [facility] [address] [address] Davonte Nation PA-C [address] [facility] [place] [address] Other (Pharmacy ) Allergies Active Allergy Reactions Criticality Noted Date [...] encounter Miscellaneous Notes * Telephone Encounter - Tsering Lara CPhT - 10/23/2023 4:07 PM EDT Pharmacy needed appt dates to fill alprazolam Thank you, Tsering Lara CPhT Electrical Prospecting Supervisor [facility] 10/23/2023,4:08 PM documented in this encounter Plan of Treatment Upcoming Encounters Date Type Department Care Team (Late st Contact Info) Description 10/25/2023 12:00 PM EDT Home Visit Care Coordination and Integration [address] [place] [address] German Esquivel [facility] Health Industrial Maintenance Mechanic [address] [place] [address] 01/08/2024 12:00 PM EDT Office Visit [facility] [address] [facility], [place] [id number] Davonte Nation PA-C [address] [place] [address] Health Maintenance Due Date Last Done Comments [...] D LEVEL ONCE IN A LIFETIME-USE SMARTSET# [id number] Completed 01/02/2023, 12/02/2021, 11/08/2020, Additional history exists [...] Not on filedocumented as of this encounter Advance Directives Documents on File Type Date Recorded Patient Applied Technologist Expl anation POLST 10/06/2022 [place] OR [facility] FOR LIFE-SUSTAINING TREATMENT * No [...] Directives occurred with: Not Discussed Care Teams Metal Trim Erector Relationship Specialty Start Date End Date Davonte Nation PA-C 21 [address] [id number] PCP - General Physician Industrial Maintenance Mechanic 04/22/22 documented as of this encounter
--- OUTSIDE RECORDS SUMMARY | 2023-11-04 13:38 | External Medical Summary | Summary of Care ---
Author Name Unknown Organization [facility] Address [address] [facility] [place] [address] Phone [phone] Care Team Providers Care Senior Corporate Strategy Manager Name Role Phone Davonte Nation PA-C Primary Care Provider [phone] Reason for Visit * Reason Onset Date Comments Order Request 10/15/2023 wheelchair Encounter Details Date Type Department Care Team (Late st Contact Info) Description 10/15/[address] [facility] [address] [place] [address] Davonte Nation PA-C [facility] [place] [address] Order Request (wheelchair) Allergies Active Allergy Reactions Criticality Noted Date Comments Zolpidem Other (Please comment) 09/04/2016 hallucinations Oxycodone-Acetaminophe n Other (Please comment) 02/26/2007 hallusanates documented as of this encounter (statuses as of 10/16/2023) Medications Medication Sig Dispensed Refills Start Date [...] as of this encounter (statuses as of 10/16/2023) Active Problems Problem Noted Date Diagnosed Date [...] as of this encounter (statuses as of 10/16/2023) Resolved Problems Problem Noted Date Diagnosed Date [...] as of this encounter (statuses as of 10/16/2023) Immunizations Name Administration Dates Next Due Pneumococcal [...] encounter Miscellaneous Notes * Telephone Encounter - Wilbert Cade MD - 10/16/2023 5:06 PM EDT Note addended. Wilbert Cade MD 10/16/2023 * Telephone Encounter - Micaela Montanez LPN - 10/15/2023 12:29 PM EDT Is this something you are able to add? * Telephone Encounter - Ana Lund OSA - 10/15/2023 11:28 AM EDT Lidya calling from [facility] to advise that an addendum is needed to the 6.1.24 office note documentation for wheelchair. Please add : "Beneficiary has a mobility limitation that significantly impairs their ability to participate in one or more mobility related activities of daily living in the home" and Functional mobility limitations cannot be safely resolved by the use of a cane or walker. When addended, please fax office note to Lidya at [facility], fax number [phone]. documented in this encounter Plan of Treatment Upcoming Encounters Date Type Department Care Team (Late st Contact Info) Description 10/25/2023 12:00 PM EDT Home Visit Care Coordination and Integration [address] [place] [address] German Esquivel [facility] Health Hand Roller [address] [facility] [address] 01/08/2024 12:00 PM EDT [facility] [address] [place] [address] Davonte Nation PA-C [address] [place] [address] [address] Health Maintenance Due Date Last Done Comments Albumin/Creatinine Ratio 09/03/1953 DTaP,Tdap,and Td Vaccines (1 - Tdap) 1956 Zoster Vaccines (1 of 2) 09/03/1987 Pneumococcal Vaccine: 65+ Years (1 of 1 - PCV) 2002 DXA Scan 07/11/2013 07/11/2011 *BISPHONATE OR OTHER ACCEPTABLE MEDICATION NEEDED FOR OSTEOPOROSIS (REFER TO SMARTSET #1146) 05/15/2014 Depression Screening 12/02/2022 12/02/2021 COVID-19 Vaccine ( - 2022- season) 2023 Influenza Vaccine (FLU shot) (Season Ended) 2024 VITAMIN D LEVEL ONCE IN A LIFETIME-USE SMARTSET# [id number] Completed 01/02/2023, 12/02/2021, 11/08/2020, Additional history exists [...] Documents on File Type Date Recorded Patient Physiotherapy Practice Manager Expl anation POLST 10/06/2022 [place] OR [facility] FOR LIFE-SUSTAINING TREATMENT * No Code (Latest [...] Directives occurred with: Not Discussed Care Teams Senior Corporate Strategy Manager Relationship Specialty Start Date End Date Davonte Nation PA-C [address] [address] PCP - General Physician Hand Roller 04/22/22 documented as of this encounter
--- OUTSIDE RECORDS SUMMARY | 2023-11-04 13:38 | External Medical Summary | Summary of Care ---
Author Name Unknown Organization [facility] Address [address] [facility] [place] [address] Phone [phone] Care Team Providers Care Bilingual Kindergarten Teacher Name Role Phone Lynsey Alston PA-C Primary Care Provider [phone] Reason for Visit * Reason Onset Date Comments Medication Refill 10/23/2023 Encounter Details Date Type Department Care Team (Late st Contact Info) Description 10/23/2023 Refill [facility] [address] [address] [address] Lynsey Alston PA-C 21 [facility] [place] [address] Generalized anxiety disorder* Allergies Active Allergy Reactions Criticality Noted Date [...] day. Active ALPRAZolam 0.5 MG Oral Tablet (xaNAX)Indication s:Anxiety Take 1 Tablet by mouth in the morning. BRAND NAME. 30 Tablet 5 06/26/2023 Active ALPRAZolam 0.25 MG Oral Tablet (xaNAX)Indication s:Generalized anxiety disorder Take one tablet at 12 PM and take one tablet at 6 PM. Brand Necessary 60 Tablet 5 10/23/2023 Active ALPRAZolam 0.25 MG Oral Tablet (xaNAX) Take one tablet at 12 PM and take one tablet at 6 PM. Brand Necessary 60 Tablet 2 06/27/2023 10/23/2023 Discontinued (Refill) documented as of this encounter (statuses as [...] encounter Miscellaneous Notes * Telephone Encounter - Lynsey Alston PA-C - 10/23/2023 8:57 AM EDTSigned Prescriptions: Disp Refills ALPRAZolam 0.25 MG Oral Tablet (xaNAX) 60 Tab*5 Sig: Take one tablet at 12 PM and take one tablet at 6 PM. Brand NecessaryAuthorizing Provider: LYNSEY ALSTON------- documented in this encounter Plan of Treatment Upcoming Encounters Date Type Department Care Team (Late st Contact Info) Description 10/25/2023 12:00 PM EDT Home Visit Care Coordination and Integration [address] [place] [address] German Esquivel [facility] Tire Fabric Inspector [address] [place] [address] 01/08/2024 12:00 PM EDT Office Visit [facility] [address] [address] [phone] Lynsey Alston PA-C [address] [id number] Health Maintenance Due Date Last Done Comments [...] D LEVEL ONCE IN A LIFETIME-USE SMARTSET# [id number] Completed 01/02/2023, 12/02/2021, 11/08/2020, Additional history exists [...] as of this encounter Visit Diagnoses Diagnosis Generalized anxiety disorder- Primary documented in this encounter Advance Directives Documents on File Type Date Recorded Patient Barn Hand Expl anation POLST 10/06/2022 [place] OR [facility] FOR LIFE-SUSTAINING TREATMENT * No Code (Latest [...] Directives occurred with: Not Discussed Care Teams Bilingual Kindergarten Teacher Relationship Specialty Start Date End Date Lynsey Alston PA-C [address] [place] [address] PCP - General Physician Tire Fabric Inspector 04/22/22 documented as of this encounter
--- OUTSIDE RECORDS SUMMARY | 2023-11-04 13:38 | External Medical Summary | Summary of Care ---
Author Name Unknown Organization [facility] Address [address] [facility] [place] [address] Phone [phone] Care Team Providers Care Correctional Cook Name Role Phone Davonte Olsen PA-C Primary Care Provider [phone] Reason for Referral * Evaluate & Treat - Unlimited Visits (Within 10 days (routine)) - Authorized Specialty Diagnoses / Procedures Referred By Ramez grace Referred To Contact Physical Therapy / Physical Medicine And Rehab Diagnoses Ambulatory dysfunction History of falling Generalized osteoarthrosis, involving multiple sites Degeneration of cervical intervertebral disc Degeneration of lumbar or lumbosacral intervertebral disc Wilbert Cade MD [address] [place] [address] Referral ID Status Reason Start Date Expiration Date Visits Requested Visits Authorized [id number] Authorized Specialty Services Required 10/24/2023 999 999 Question Answer Referral Priority Within 10 days (routine) Where should this appointment be scheduled? External Comments OT/PT evaluation for power wheelchair Reason for Visit * Reason Onset Date Comments Forms Request 10/23/2023 Encounter Details Date Type Department Care Team (Late st Contact Info) Description 10/23/2023 Telephone [facility] Blanca Rudolph [address] [address] [...] pt's son Luke Pt received wheelchair from [facility] recently Per Luke, they actually wanted a power wheelchair Pt is unable to use manual wheelchair Reports she cannot reach the wheels very well and she has issues with her shoulders that prevent her from being able to maneuver wheelchair Call to [facility] Adelina, spoke with Tomeka in rehab dept For a power wheelchair, they need an order for a PT/OT eval, demographics, and most recent office visit notes faxed to [phone] Dr. Cade, Pending order to you as you saw pt for [id number] PT/OT eval order pended, please sign if agreeable documented in this encounter Plan of Treatment Upcoming Encounters Date Type Department Care Team (Late st Contact Info) Description 10/25/2023 12:00 PM EDT Home Visit Care Coordination and Integration [address] [place] [address] [facility] [address] [place] [address] 01/08/2024 12:00 PM EDT Office Visit [facility] [address] [address] Davonte Olsen PA-C [address] [place] [address] Scheduled Referrals Name Type Priority Associated [...] D LEVEL ONCE IN A LIFETIME-USE SMARTSET# [id number] Completed 01/02/2023, 12/02/2021, 11/08/2020, Additional history exists [...] Documents on File Type Date Recorded Patient Beating Machine Operator Expl anation POLST 10/06/2022 [place] OR [facility] FOR LIFE-SUSTAINING TREATMENT * No [...] Directives occurred with: Not Discussed Care Teams Correctional Cook Relationship Specialty Start Date End Date Davonte Olsen PA-C [address] [address] PCP - General Physician Biological Sciences Instructor 04/22/22 documented as of this encounter
--- OUTSIDE RECORDS SUMMARY | 2023-11-04 13:38 | External Medical Summary | Summary of Care ---
Author Name Unknown Organization [facility] Address [address] [facility] [place] [address] Phone [phone] Care Team Providers Care Environmental Control Administrator Name Role Phone Davonte Nation PA-C Primary Care Provider [phone] Reason for Visit * Reason Onset Date Comments Order Request 10/15/2023 wheelchair Encounter Details Date Type Department Care Team (Late st Contact Info) Description 10/15/2023 Telephone [facility] [address] [place] [address] [address] Davonte Nation PA-C [facility] [address] Order Request (wheelchair) Allergies Active Allergy Reactions Criticality Noted Date Comments Zolpidem Other (Please comment) 09/04/2016 hallucinations Oxycodone-Acetaminophe n Other (Please comment) 02/26/2007 hallusanates documented as of this encounter (statuses as of 10/17/2023) Medications Medication Sig Dispensed Refills Start Date [...] as of this encounter (statuses as of 10/17/2023) Active Problems Problem Noted Date Diagnosed Date [...] as of this encounter (statuses as of 10/17/2023) Resolved Problems Problem Noted Date Diagnosed Date [...] as of this encounter (statuses as of 10/17/2023) Immunizations Name Administration Dates Next Due Pneumococcal [...] encounter Miscellaneous Notes * Telephone Encounter - Rama Garcia OSA - 10/17/2023 8:33 AM EDT Faxed addended note to Adrian. * Telephone Encounter - Wilbert Cade MD - 10/16/2023 5:06 PM EDT Note addended. Wilbert Cade MD 10/16/2023 * Telephone Encounter - Micaela Montanez LPN - 10/15/2023 12:29 PM EDT Is this something you are able to add? * Telephone Encounter - Ana Lund OSA - 10/15/2023 11:28 AM EDT Lidya calling from [facility] to advise that an addendum is needed [...] please fax office note to Lidya at [facility], fax number [phone]. documented in this encounter Plan of Treatment Upcoming Encounters Date Type Department Care Team (Late st Contact Info) Description 10/25/2023 12:00 PM EDT Home Visit Care Coordination and Integration [address] [place] [address] German Esquivel [facility] Potato Chip Maker [address] [place] [address] 01/08/2024 12:00 PM EDT Office Visit [facility] [place] [address] [address] Davonte Nation PA-C [address] [address] Health Maintenance Due Date Last Done Comments [...] D LEVEL ONCE IN A LIFETIME-USE SMARTSET# [id number] Completed 01/02/2023, 12/02/2021, 11/08/2020, Additional history exists [...] Documents on File Type Date Recorded Patient Racebook Writer Expl anation POLST 10/06/2022 [place] OR [facility] FOR LIFE-SUSTAINING TREATMENT * No Code [...] Directives occurred with: Not Discussed Care Teams Environmental Control Administrator Relationship Specialty Start Date End Date Davonte Nation PA-C [address] [address] PCP - General Physician Potato Chip Maker 04/22/22 documented as of this encounter
--- OUTSIDE RECORDS SUMMARY | 2023-11-04 13:38 | External Medical Summary | Summary of Care ---
Author Name Unknown Organization [facility] Address [address] [place] [address] Phone [phone] Care Team Providers Care Account Resolution Specialist Name Role Phone Davonte Nation PA-C Primary Care Provider [phone] Reason for Visit * Reason Comments Order Request Wheelchair Encounter Details Date Type Department Care Team (Late st Contact Info) Description 10/13/2023 1:30 PM EDT Office Visit [facility] [place] [id number] Wilbert Cade MD [address] [address] Generalized osteoarthrosis, involving multiple sites*; Ambulatory dysfunction; Risk and functional assessment; History of falling Allergies Active Allergy Reactions Criticality Noted Date [...] Brand Necessary 60 Tablet 2 06/27/2023 Active ALPRAZolam 0.5 MG Oral Tablet Take 0.5 Tablets by mouth 2 times a day. At 1:00pm and 7:00pm BRAND NAME 10/13/2023 Discontinued (Medication/ Dose Changed) Ondansetron HCl 4 MG Oral Tablet (Zofran) Take 1 Tablet by mouth every 6 hours as needed for Nausea. 10/13/2023 Discontinued (Patient preference/d iscontinuati on) documented as of this encounter (statuses as [...] Date Smoking Tobacco: Never Smokeless Tobacco: Never Tobacco Cessation:Counseling Given: No Alcohol Use Standard Drinks/Week Comments No 0 [...] on file documented as of this encounter Last Filed Vital Signs Vital Sign Reading Time Taken Comments Blood Pressure 108/74 10/13/2023 1:18 PM EDT Pulse 78 10/13/2023 1:18 PM EDT Temperature 37 C (98.6 F) 10/13/2023 1:18 PM EDT Respiratory Rate 14 10/13/2023 1:18 PM EDT Oxygen Saturation 98% 10/13/2023 1:18 PM EDT Inhaled Oxygen Concentration - - Weight - - Height - - Body Mass Index - - documented in this encounter Functional Status Functional Status Response [...] No 09/17/2022 documented as of this encounter Patient Instructions * Patient Instructions* Nesha Duffy LPN - 10/13/2023 1:17 PM EDT Patient Instructions - Fall Prevention (This education is for all patients over 65 regardless of symptoms) Remember to take your current medications as prescribed. In order to prevent falls, you are encouraged to: Exercise Utilize assistive/adaptive devices Avoid multifocal lenses when walking Avoid hazards in home Maintain a regular toileting schedule Any questions please contact our office. Preventing Falls in the Home (This education is for all patients over 65 regardless of symptoms) As you get older, falls are more likely. Thats because your reaction time slows. Your muscles and joints may also get stiffer, making them less flexible. Illness, medications, and vision changes can also affect your balance. A fall could leave you unable to live on your own. To make your home safer, follow these tips: Floors Put nonskid pads under area rugs Remove throw rugs Replace worn floor coverings Tack carpets firmly to each step on carpeted stairs. Put nonskid strips on the edges of uncarpeted stairs Keep floors and stairs free of clutter and cords Arrange furniture so there are clear pathways Clean up any spills right away Bathrooms Install grab bars in the tub or shower Apply nonskid strips or put a nonskid rubber mat in the tub or shower Sit on a bath chair to bathe Use bathmats with nonskid backing Lighting Keep a flashlight in each room Put a nightlight along the pathway between the bedroom and the bathroom Jj Patient Education Copyright 2008 - 2010 Jj except where otherwise noted Preventing Falls: Exercises to Improve Balance, Flexibility, Strength, and Staying Power (This education is for all patients over 65 regardless of symptoms) Certain types of exercises may help make you less likely to fall. Try the ones below. Or do other exercises that your healthcare provider suggests. Depending on your health, you may need to start slowly. Dont let that stop you. Even small amounts of exercise can help you. Be sure to talk to yourhealthcare provider before starting any exercise program. Improve Balance Many types of exercise can help improve balance. Obed chi and yoga are good examples. Heres another one to try. You can do it anytime and almost anywhere. Stand next to a counter or solid support. Push yourself up onto your tiptoes. Hold for 5 seconds. If you start to lose your balance, hold on to the counter. Rest and repeat 5 times. Work up to holding for 20 to 30 seconds, if you can. Increase Flexibility Being more flexible makes it easier for you to move around safely. Try exercises like the seated hamstring stretch. Sit in a chair and put one foot on a stool. Straighten your leg and reach with both hands down either side of your leg. Reach as far down your leg as you can. Hold for about 20 seconds. Go back to the starting position. Then repeat 5 times. Switch legs. Build Strength Resistance exercises help build strength. You can do them without equipment. Or you can use weights, elastic bands, or special machines. One such exercise is called the biceps curl. You can hold a 1 pound weight or even a can of soup. Do this exercise at least 3 times a week. Strive for everyday. Sit up straight in a chair. Keep your elbow close to your body and your wrist straight. Bend your arm, moving your hand up to your shoulder. Then slowly lower your arm. Repeat 5 times. Switch to the other arm. Build Your Staying Power Aerobic exercises make your heart and lungs stronger so you can keep moving longer. Walking and swimming are two of the best types of exercises you can do. Using a stationary bike is great, too. Find an aerobic exercise that you enjoy. Start slowly and build up. Even 5 minutes is helpful. Aimfor a goal of 30 minutes, at least 3 times a week. You dont have to do 30 minutes in one session. Break it up and walk a little throughout the day. More Helpful Tips Start easy. Slowly work up to doing more. Talk with your healthcare provider about the best exercises for you. Call senior centers or health clubs about exercise programs. If needed, have a family member watch you walk every so often to check your stability. Exercise with a friend. Choose an activity you both enjoy. Try exercises that you can do anytime, anywhere. Here are two examples. Have someone with you when you first try these: Practice walking by placing one foot right in front of the other. Stand up and sit down 10 times. Repeat this throughout the day. [employer] Patient Education Copyright 2008 - 2010 Jj except where otherwise noted. Preventing Falls: Moving Safely Using a Cane or Walker (This education is for all patients over 65 regardless of symptoms) Keep the cane away from your feet so you dont trip. A walking aid, such as a cane or walker, can help you stay more independent and avoid falls. Remember to keep your walking aid within easy reach when youre in a chair or in bed. And learn how to use it safely so you dont injure yourself. Using a Cane If you have a stronger side, hold the cane on that side. Get your balance. Move the cane and your weaker leg forward. Support your weight on both the cane and your weaker side. Step with your stronger leg. Start again from step 1. If youre using a folding walker, be sure you know how to lock it open. Check that its locked open before each use. Using a Walker Roll the walker (or lift it, if youre using one without wheels) forward about 12 inches. Step forward with your weaker leg first. Use the walker to help keep your balance. Bring your other foot forward to the center of the walker. Start again from step 1. Helpful Tips Check with your healthcare provider about the right walking aid to use. Ask about a walker with a seat attached. Check the tips of your cane or walker to make sure they have nonskid covers. Move slowly from room to room. Dont oneill. Sit down to get dressed. Use a pia pack or backpack to keep your hands free. Get help for jobs that mean climbing, even on a stepstool. [employer] Patient Education Copyright 2008 - 2010 Jj except where otherwise noted. documented in this encounter Progress Notes * Wilbert Cade MD - 10/14/2023 9:13 PM EDT Identification: Ailyn Link is an 88 year old female who reports to clinic accompanied. Reports to the nurse: Chief Complaint Patient presents with Order Request Wheelchair Chief Complaint to myself: [id number] History of Present Illness: No brief clinical history available. Nursing Notes: Nesha Duffy LPN 10/13/23 1313 Signed Chief Complaint Patient presents with Order Request Wheelchair HPI: Pleasant 88-year-old female She has here for a [id number] encounter so she can get a wheelchair She reports that she has been home for 2 weeks now Apparently she was living at [facility]. Per previous notes, she came home on SundaySeptember 28. Her son had been living with her but he returned to his home in [place] A different son lives in the area in his checking in on her regularly, per report Patient report that her blood pressure goes up. It has on the low side today. When I inquired about walking, she says it is terrible. When I ask if she could make Sunday eggs, she replies no She reports her vision is bad, not otherwise specified When I inquired about fine motor function she reports that she has trigger fingers when I inquired about buttoning buttons and dressing and undressing it is not clear if she is able to do those things by herself without assistance. Is not clear if she is sleeping in better in the chair. Review of Systems: I did review of systems. 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] 12/02/2013 Past Medical History: Diagnosis Date cystic neoplasm of body of pancreas 09/13/2006 EUS 09/2006 Saurabh Galeano Degeneration of cervical intervertebral disc Generalized osteoarthritis Muscular deconditioning Osteoporosis Osteoporosis, unspecified Other anxiety states Ovarian cyst MEAGAN-BSO Past Surgical History: Procedure Laterality Date DELIVERY x3 COLONOSCOPY, DIAGNOSTIC (RECTUM) N/A 11/07/2018 diverticulosis sigmoid colon/scope only advanced to transverse colon/COLONOSCOPY FLEXIBLE PROXIMAL DIAGNOSTIC performed by Moises Matthews MD at OR [facility] TOTAL HIP REPLACEMENT & PROSTHESIS 1987 -right; 1994 right and left TOTAL HYSTERECTOMY with BSO I reviewed current medications: Current Outpatient Medications Medication Sig Dispense Refill ALPRAZolam 0.25 MG Oral Tablet (xaNAX) Take one tablet at 12 PM and take one tablet at 6 PM. Brand Necessary 60 Tablet 2 ALPRAZolam 0.5 MG Oral Tablet (xaNAX) Take 1 Tablet by mouth in the morning. BRAND NAME. 30 Tablet 5 Acetaminophen 325 MG Oral Tablet (Tylenol) Take 2 Tablets by mouth every 6 hours as needed for Fever (Temp Greater than ) (100.4). Not to exceed 3g/24hrs Ensure Original Oral Liquid Take by mouth. As needed for dietary supplement. Do not exceed 2 bottles per day. Vitamin B-6 50 MG Oral Tablet Take 1 Tablet by mouth in the morning. Zinc 50 MG Oral Tablet Take 1 Tablet by mouth every night at bedtime. Ibuprofen 600 MG Oral Tablet (Motrin) Take 1 Tablet by mouth every 6 hours as needed (for moderate pain (4-6)). No current facility-administered medications for this visit. I reviewed allergies: Review of patient's allergies indicates: Allergen Reactions Ambien [Zolpidem] Other (Please comment) hallucinations Percocet [Oxycodone-Acetaminophen] Other (Please comment) hallusanates I reviewed Family/Social History: No family history on file. 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 Jesus Michaud. Lives alone. Ailyn has three children. [place]yn[place] is [facility] [place] in [place] and one in [place]. Four grands, and four greats. Social Determinants of Health Financial Resource Strain: Not on file Food Insecurity: No Food Insecurity (12/20/2022) Hunger Vital Sign Worried About Running Out of Food in the Last Year: Never true Ran Out of Food in the Last Year: Never true Transportation Needs: Not on file Physical Activity: Not on file Stress: Not on file Social Connections: Not on file Intimate Partner Violence: Not on file Housing Stability: Not on file OBJECTIVE: Filed Vitals: 10/13/23 1318 BP: 108/74 Pulse: 78 Resp: 14 Temp: 37 C (98.6 F) SpO2: 98% BP Readings from Last 7 Encounters: 10/13/23 108/74 07/22/23 180/86 07/09/23 100/70 11/28/23 176/75 01/02/23 124/62 09/19/22 120/73 05/23/22 118/64 Wt Readings from Last 7 Encounters: 07/09/23 32.1 kg (70 lb 11.2 oz) 04/10/23 38.1 kg (84 lb) 01/02/23 39.7 kg (87 lb 9.6 oz) 09/19/22 40.4 kg (89 lb 1.6 oz) 05/23/22 37.2 kg (82 lb) 02/13/22 37.6 kg (83 lb) 12/02/21 38.6 kg (85 lb) General Appearance: Alert, cooperative, and in no distress. Unable to get up on exam table. Pupils were reactive to light equally bilaterally and conjunctiva were not inflamed. Eye lids clear External ear canals without exudate and observed portions of tympanic membranes revealed good lightreflex and landmarks noted. Oral Pharynx is moist with no tonsillar hypertrophy, erythema or exudate noted Lips and buccal mucosa unremarkable. Neck: Supple, no lymphadenopathy noted, no masses, thyroid is symmetric. Pulmonary: Chest is clear to auscaltion bilaterally, without wheezes rales or rhonchi. moving air well, with no retractions or nasal flaring. Heart: Regular rate and rhythm, S1 S2. No pretibial edema. Patient is wearing a soft neck brace Get up and go test. Patient is unable to do this. She is unable to get out of her wheelchair unassisted I assisted her to a standing position and she is unable to continue holding that standing position When I ask her to do [id number], primarily the patient speaks. But sometimes she was able to fulfill the requests. Ailyn was seen today for order request. Diagnoses and all orders for this visit: Generalized osteoarthrosis, involving multiple sites - DURABLE MEDICAL EQUIPMENT Ambulatory dysfunction - DURABLE MEDICAL EQUIPMENT Risk and functional assessment I have received a request that this patient receive a wheelchair of her on and I placed the requestfor that DME Beneficiary has a mobility limitation that significantly impairs their ability to participate in one or more mobility related activities of daily living in the home Functional mobility limitations cannot be safely resolved by the use of a cane or walker. I spent a total of 40-54 minutes (exact time 42 mins) on the date of service in preparation, delivery, and documentation of the care provided to Ailyn Link excluding any time spent in the performance of separately billed services. Creatinine Results: Lab Results Component Value Date/Time CREATININE - [facility] 0.4 (L) 07/22/2023 06:24 AM CREATININE - [facility] 0.4 (L) 07/19/2023 06:44 AM CREATININE - [facility] 0.5 01/02/2023 11:32 AM CREATININE - [facility] 0.7 05/23/2019 01:24 PM CREATININE - [facility] 0.5 12/07/2018 09:59 AM CREATININE - [facility] 0.4 (L) 11/07/2018 05:42 AM CREATININE ALEXA - [facility] 26 04/20/2021 11:44 AM CREATININE ISTAT 0.4 (L) 03/13/2017 09:24 AM CREATININE-[facility] 0.43 (A) 02/10/2022 12:00 AM CREATININE-[facility] LAB 0.61 08/10/2020 12:00 AM CREATININE-OUTSIDE LAB 0.50 (A) 11/09/2017 12:00 AM Hemoglobin A1C last 3 results: No results found for: "HEM" @LABBRIEFR@ Patient Instructions Patient Instructions - Fall Prevention (This education is for all patients over 65 regardless of symptoms) Remember to take your current medications as prescribed. In order to prevent falls, you are encouraged to: Exercise Utilize assistive/adaptive devices Avoid multifocal lenses when walking Avoid hazards in home Maintain a regular toileting schedule Any questions please contact our office. Preventing Falls in the Home (This education is for all patients over 65 regardless of symptoms) As you get older, falls are more likely. Thats because your reaction time slows. Your muscles and joints may also get stiffer, making them less flexible. Illness, medications, and vision changes can also affect your balance. A fall could leave you unable to live on your own. To make your home safer, follow these tips: Floors Put nonskid pads under area rugs Remove throw rugs Replace worn floor coverings Tack carpets firmly to each step on carpeted stairs. Put nonskid strips on the edges of uncarpeted stairs Keep floors and stairs free of clutter and cords Arrange furniture so there are clear pathways Clean up any spills right away Bathrooms Install grab bars in the tub or shower Apply nonskid strips or put a nonskid rubber mat in the tub or shower Sit on a bath chair to bathe Use bathmats with nonskid backing Lighting Keep a flashlight in each room Put a nightlight along the pathway between the bedroom and the bathroom Jj Patient Education Copyright 2008 - 2010 Jj except where otherwise noted Preventing Falls: Exercises to Improve Balance, Flexibility, Strength, and Staying Power (This education is for all patients over 65 regardless of symptoms) Certain types of exercises may help make you less likely to fall. Try the ones below. Or do other exercises that your healthcare provider suggests. Depending on your health, you may need to start slowly. Dont let that stop you. Even small amounts of exercise can help you. Be sure to talk to yourhealthcare provider before starting any exercise program. Improve Balance Many types of exercise can help improve balance. Obed chi and yoga are good examples. Heres another one to try. You can do it anytime and almost anywhere. Stand next to a counter or solid support. Push yourself up onto your tiptoes. Hold for 5 seconds. If you start to lose your balance, hold on to the counter. Rest and repeat 5 times. Work up to holding for 20 to 30 seconds, if you can. Increase Flexibility Being more flexible makes it easier for you to move around safely. Try exercises like the seated hamstring stretch. Sit in a chair and put one foot on a stool. Straighten your leg and reach with both hands down either side of your leg. Reach as far down your leg as you can. Hold for about 20 seconds. Go back to the starting position. Then repeat 5 times. Switch legs. Build Strength Resistance exercises help build strength. You can do them without equipment. Or you can use weights, elastic bands, or special machines. One such exercise is called the biceps curl. You can hold a 1 pound weight or even a can of soup. Do this exercise at least 3 times a week. Strive for everyday. Sit up straight in a chair. Keep your elbow close to your body and your wrist straight. Bend your arm, moving your hand up to your shoulder. Then slowly lower your arm. Repeat 5 times. Switch to the other arm. Build Your Staying Power Aerobic exercises make your heart and lungs stronger so you can keep moving longer. Walking and swimming are two of the best types of exercises you can do. Using a stationary bike is great, too. Find an aerobic exercise that you enjoy. Start slowly and build up. Even 5 minutes is helpful. Aimfor a goal of 30 minutes, at least 3 times a week. You dont have to do 30 minutes in one session. Break it up and walk a little throughout the day. More Helpful Tips Start easy. Slowly work up to doing more. Talk with your healthcare provider about the best exercises for you. Call senior centers or health clubs about exercise programs. If needed, have a family member watch you walk every so often to check your stability. Exercise with a friend. Choose an activity you both enjoy. Try exercises that you can do anytime, anywhere. Here are two examples. Have someone with you when you first try these: Practice walking by placing one foot right in front of the other. Stand up and sit down 10 times. Repeat this throughout the day. [facility] Patient Education Copyright 2008 - 2010 [facility] except where otherwise noted. Preventing Falls: Moving Safely Using a Cane or Walker (This education is for all patients over 65 regardless of symptoms) Keep the cane away from your feet so you dont trip. A walking aid, such as a cane or walker, can help you stay more independent and avoid falls. Remember to keep your walking aid within easy reach when youre in a chair or in bed. And learn how to use it safely so you dont injure yourself. Using a Cane If you have a stronger side, hold the cane on that side. Get your balance. Move the cane and your weaker leg forward. Support your weight on both the cane and your weaker side. Step with your stronger leg. Start again from step 1. If youre using a folding walker, be sure you know how to lock it open. Check that its locked open before each use. Using a Walker Roll the walker (or lift it, if youre using one without wheels) forward about 12 inches. Step forward with your weaker leg first. Use the walker to help keep your balance. Bring your other foot forward to the center of the walker. Start again from step 1. Helpful Tips Check with your healthcare provider about the right walking aid to use. Ask about a walker with a seat attached. Check the tips of your cane or walker to make sure they have nonskid covers. Move slowly from room to room. Dont oneill. Sit down to get dressed. Use a pia pack or backpack to keep your hands free. Get help for jobs that mean climbing, even on a stepstool. Jj Patient Education Copyright 2008 - 2010 Jj except where otherwise noted. 01/08/2024 Wilbert Cade MD 10/14/2023 9:13 PM This chart was completed in part utilizing [employer] Speech Voice Recognition Software. Grammatical errors, random word insertions, prounoun errors, and incomplete sentences are an occasional consequence of this system due to software limitations, ambient noise, and hardware issues. Any formal questions or concerns about the content, text, or information contained within the body of this dictation should be directly addressed to the provider for clarification. documented in this encounter Nursing Notes * Nesha Duffy LPN - 10/13/2023 1:10 PM EDT Chief Complaint Patient presents with Order Request Wheelchair documented in this encounter Plan of Treatment Upcoming Encounters Date Type Department Care Team (Late st Contact Info) Description 10/25/2023 12:00 PM EDT Home Visit [facility] Coordination [facility] Integration [address] [place] [address] [place] Es[facility] Seasoning Mixer [address] [place] [address] 01/08/2024 12:00 PM EDT [facility] [address] [phone] Davonte Nation PA-C [address] [phone] Health Maintenance Due Date Last Done Comments [...] D LEVEL ONCE IN A LIFETIME-USE SMARTSET# [id number] Completed 01/02/2023, 12/02/2021, 11/08/2020, Additional history exists [...] of this encounter Visit Diagnoses Diagnosis Generalized osteoarthrosis, involving multiple sites- Primary Ambulatory dysfunction Risk and functional assessment Screening for unspecified condition History of falling Personal history of fall documented in this encounter Advance Directives Documents on File Type Date Recorded 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
--- OUTSIDE RECORDS SUMMARY | 2023-11-04 13:38 | External Medical Summary | Summary of Care ---
Author Name Unknown Organization [facility] Address [address] [facility] RONI SAHU [address] Phone [phone] Care Team Providers Care Freight Conductor Name Role Phone Davonte Nation PA-C Primary Care Provider Reason for Visit * Reason Onset Date Comments Forms Request 09/28/2023 Encounter Details Date Type Department Care Team (Late st Contact Info) Description 09/28/2023 [facility]phone [facility] [address]RON[address]comb [phone] Davonte Nation PA-C 21 [facility] RONI RUSSO [address] Forms Request Allergies Active Allergy Reactions Criticality [...] NAME. 30 Tablet 5 06/26/2023 Active ALPRAZolam 0.5 MG Oral Tablet Take 0.5 Tablets by mouth 2 times a day. At 1:00pm and 7:00pm BRAND NAME 10/13/2023 Discontinued (Medication/ Dose Changed) Ondansetron HCl 4 MG Oral Tablet (Zofran) Take 1 Tablet by mouth every 6 hours as needed for Nausea. 10/13/2023 Discontinued (Patient preference/d iscontinuati on) ALPRAZolam 0.25 MG Oral Tablet (xaNAX) Take [...] encounter Miscellaneous Notes * Telephone Encounter - Arianna Montes OSA - 10/23/2023 1:58 PM EDT Copied mailed to pts son Luke * Telephone Encounter - Christine Hazel RN - 10/23/2023 8:46 AM EDT Call from Luke to confirm [facility] paperwork was completed and faxed He would like a copy mailed to him as well Please mail copy of completed [facility] paperwork to: Luke Baconhugo [address] [place], [place] * Telephone Encounter - Naila Saravia OSA - 10/09/2023 1:33 PM EDT Copy put in [facility] bin * Telephone Encounter - Naila Saravia OSA - 10/09/2023 1:20 PM EDT Forms faxed to [phone] on [id number]. * Telephone Encounter - Betina Millan OSA - 09/28/2023 12:39 PM EDT Luke dropped off [employer] [place] forms for Jose Nation to be filled out. Please fax forms to [phone]. Form placed in Jose Nation's mail bin. * Telephone Encounter - Christine Hazel RN - 09/28/2023 9:15 AM EDT Call from pt's son Luke His current FMLA for pt is going to 10/05/23 He is looking to have new FMLA paperwork completed to renew it for the next year Requesting intermittent leave for assisting with pt He will drop off paperwork today, aware it may take a few days to a week to get completed He will obtain fax number for his work so that it can be faxed once completed RACHEL Garcia documented in this encounter Plan of Treatment Upcoming Encounters Date Type Department Care Team (Late st Contact Info) Description 10/25/2023 12:00 PM EDT Home Visit [facility] [address] [facility] [place] [address] German Esquivel [facility] Health Pitch Flaker [address] [place] [address] 01/08/2024 12:00 PM EDT Office Visit [facility] [address] [phone] Davonte Nation PA-C [address] [address] Health Maintenance Due Date Last Done Comments [...] D LEVEL ONCE IN A LIFETIME-USE SMARTSET# [id number] Completed 01/02/2023, 12/02/2021, 11/08/2020, Additional history exists [...] Documents on File Type Date Recorded 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
--- OUTSIDE RECORDS SUMMARY | 2023-11-04 13:38 | External Medical Summary | Summary of Care ---
Author Name Unknown Organization [facility] Address [address] [facility] RONI SAHU [address] Phone [phone] Care Team Providers Care Supervisor Lime Name Role Phone Davonte Nation PA-C Primary Care Provider [phone] Reason for Visit * Reason Onset Date Comments Forms Request 09/28/2023 Encounter Details Date Type Department Care Team (Late st Contact Info) Description 09/28/2023 [facility] [address] Jump[address]terRON[address] [place] [phone] Davonte Nation PA-C 21 [facility] R[place]I RUSSO [address] Forms Request Allergies Active [...] encounter Miscellaneous Notes * Telephone Encounter - Christine Hazel RN - 10/23/2023 8:46 AM EDT Call from Luke to confirm [facility] paperwork was completed and faxed He would like a copy mailed to him as well Please mail copy of completed [facility] paperwork to: Luke Link [address] [place], [place] * Telephone Encounter - Naila Saravia OSA - 10/09/2023 1:33 PM EDT Copy put in [facility] bin * Telephone Encounter - Naila Saravia OSA - 10/09/2023 1:20 PM EDT Forms faxed to [phone] on [phone]. * Telephone Encounter - Betina Millan OSA - 09/28/2023 12:39 PM EDT Luke dropped off [place] forms for Jose Nation to be filled out. Please fax forms to [phone]. Form placed in Jose Nation's mail bin. [...] Visit Care Coordination and Integration [address] [place] [facility] [address] German Esquivel [facility] Radio Personality [address] [place] [address] 01/08/2024 12:00 PM EDT Office Visit [facility] [address] [phone] Davonte Nation PA-C 21 Pierre DIAZRONI Melo [phone] Health Maintenance Due Date Last Done Comments Albumin/Creatinine Ratio 09/03/1953 DTaP,Tdap,and Td Vaccines (1 - Tdap) 1956 Zoster Vaccines (1 of 2) 09/03/1987 Pneumococcal Vaccine: 65+ Years (1 of 1 - PCV) 2002 DXA Scan 07/11/2013 07/11/2011 *BISPHONATE OR OTHER ACCEPTABLE MEDICATION NEEDED FOR OSTEOPOROSIS (REFER TO SMARTSET #1146) 05/15/2014 Depression Screening 12/02/2022 12/02/2021 COVID-19 Vaccine (1 - season) 2023 Influenza Vaccine (FLU shot) (Season Ended) 2024 VITAMIN D LEVEL ONCE IN A LIFETIME-USE SMARTSET# [id number] Completed 01/02/2023, 12/02/2021, 11/08/2020, Additional history exists [...] Documents on File Type Date Recorded 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
--- OUTSIDE RECORDS SUMMARY | 2023-11-04 13:38 | External Medical Summary | Summary of Care ---
Author Name Unknown Organization [facility] Address [address] [facility] RONI [place] [address] Phone [phone] Care Team Providers Care 8Th Grade Teacher Name Role Phone Davonte Nation PA-C Primary Care Provider [phone] Reason for Visit * Reason Onset Date Comments Encounter Created in Error 10/25/2023 Encounter Details Date Type Department Care Team (Late st Contact Info) Description 10/25/2023 Telephone [facility] [address] [phone] Davonte Nation PA-C 21 blur [facility] [place] [address] Encounter Created in Error Allergies Active Allergy Reactions Criticality Noted Date [...] ) (100.4). Not to exceed 3g/24hrs Active Ensure Original Oral Liquid Take by [...] Brand Necessary 60 Tablet 5 10/23/2023 Active Ibuprofen 200 MG Oral Capsule (Advil Liqui-Gels minis) Take 1 Capsule by mouth every 4 hours as needed for Pain, Mild, Pain, Moderate or Fever >38C(100.5F). Active documented as of this encounter (statuses [...] No 09/17/2022 documented as of this encounter Plan of Treatment Upcoming Encounters Date Type Department Care Team (Late st Contact Info) Description 01/08/2024 12:00 PM EDT Office Visit [facility] [place] 21 [address] [phone] Davonte Nation PA-C 21 [address] [address] Health Maintenance Due Date Last Done Comments [...] D LEVEL ONCE IN A LIFETIME-USE SMARTSET# [id number] Completed 01/02/2023, 12/02/2021, 11/08/2020, Additional history exists [...] Documents on File Type Date Recorded Patient Care Director Rn Expl anation POLST 10/06/2022 [place] OR [facility] [...] Directives occurred with: Not Discussed Care Teams 8Th Grade Teacher Relationship Specialty Start Date End Date Davonte Nation PA-C 21 [address] [phone] PCP - General Physician Supervisor Cell Operation 04/22/22 documented as of this encounter
--- OUTSIDE RECORDS SUMMARY | 2023-11-04 13:38 | External Medical Summary | Summary of Care ---
Author Name Unknown Organization [facility] Address [address] [facility] RON[place] SAHU [address] Phone [phone] Care Team Providers Care Interactive Account Manager Name Role Phone Davonte Nation PA-C Primary Care Provider [phone] Reason for Visit * Reason Onset Date Comments Order Request 10/15/2023 wheelchair Encounter Details Date Type Department Care Team (Late st Contact Info) Description 10/15/2023 Telephone [facility] 21 [address] [phone] Davonte Nation PA-C 21 [facility] [place] [id number] Order Request (wheelchair) Allergies Active Allergy [...] 10/15/2023 11:28 AM EDT Lidya calling from [facility] to advise that an addendum is [...] please fax office note to Lidya at [facility], fax number [phone]. documented in this encounter Plan of Treatment Upcoming Encounters Date Type Department Care Team (Late st Contact Info) Description 10/25/2023 12:00 PM EDT Home Visit Care Coordination and Integration [address] [place] [address] German Esquivel [facility] Stone Product Fabricator [address] [place] [address] 01/08/2024 12:00 PM EDT Office Visit [facility] [place] 21 [address] [phone] Davonte Nation PA-C 21 [address] [address] Health Maintenance Due Date Last Done Comments [...] D LEVEL ONCE IN A LIFETIME-USE SMARTSET# [id number] Completed 01/02/2023, 12/02/2021, 11/08/2020, Additional history exists [...] Documents on File Type Date Recorded 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
--- OUTSIDE RECORDS SUMMARY | 2023-11-04 13:38 | External Medical Summary | Summary of Care ---
Author Name Unknown Organization [facility] Address [address] [facility] RONI SAHU [address] Phone [phone] Care Team Providers Care Retarder Operator Name Role Phone Davonte Nation PA-C Primary Care Provider [phone] Reason for Visit * Reason Onset Date Comments Forms Request 09/28/2023 Encounter Details Date Type Department Care Team (Late st Contact Info) Description 09/28/2023 [facility]phone [facility] 21 SpectraLinearRONI Holcomb [phone] Davonte Nation PA-C 21 [facility] RONI RUSSO [address] Forms Request Allergies Active [...] AM EDT Call from Luke to confirm [facility] paperwork was completed and faxed He would like a copy mailed to him as well Please mail copy of completed [facility] paperwork to: Luke Link [address] [place], [place] * Telephone Encounter - Naila Saravia OSA - 10/09/2023 1:33 PM EDT Copy put in [facility] bin * Telephone Encounter - Naila Saravia OSA - 10/09/2023 1:20 PM EDT Forms faxed to [phone] on [phone]. * Telephone Encounter - Betina Millan OSA - 09/28/2023 12:39 PM EDT Luke dropped off [place] forms for Jose Nation to be filled out. Please fax forms to [phone]. Form placed in Jose Nation's mail bin. [...] Visit Care Coordination and Integration [address] [facility] [place] [address] German Esquivel [facility] Health Senior Vice President [address] [place] [address] 01/08/2024 12:00 PM EDT Office Visit [facility] 21 [address] [phone] Davonte Nation PA-C 21 Pierre DIAZRONI Melo [phone] Health Maintenance Due Date Last Done Comments [...] D LEVEL ONCE IN A LIFETIME-USE SMARTSET# [id number] Completed 01/02/2023, 12/02/2021, 11/08/2020, Additional history exists [...] Documents on File Type Date Recorded Patient Dev Manager Expl anation POLST 10/06/2022 [place] OR [facility] FOR LIFE-SUSTAINING TREATMENT * No Code [...] Directives occurred with: Not Discussed Care Teams Retarder Operator Relationship Specialty Start Date End Date Davonte Nation PA-C 21 [address] [phone] PCP - General Physician Senior Vice President 04/22/22 documented as of this encounter
--- OUTSIDE RECORDS SUMMARY | 2023-11-04 13:39 | External Medical Summary | Summary of Care ---
Author Name Unknown Organization [facility] Address [address] [facility] [address] Phone [phone] Care Team Providers Care Investigative Agent Name Role Phone Davonte Nation PA-C Primary Care Provider [phone] Reason for Visit * Reason Onset Date Comments Forms Request 09/28/2023 Encounter Details Date Type Department Care Team (Late st Contact Info) Description 09/28/2023 [facility]phone [facility] 21 AtrecaRONI [place]comb [phone] Davonte Nation PA-C 21 [facility] [place] R[place] [address] Forms Request Allergies Active Allergy Reactions Criticality Noted Date Comments Zolpidem Other (Please comment) 09/04/2016 hallucinations Oxycodone-Acetaminophe n Other (Please comment) 02/26/2007 hallusanates documented as of this encounter (statuses as of 10/09/2023) Medications Medication Sig Dispensed Refills Start Date End Date Status Vitamin B-6 50 MG Oral Tablet Take 1 Tablet by mouth in the morning. Active ALPRAZolam 0.5 MG Oral Tablet Take 0.5 Tablets by mouth 2 times a day. At 1:00pm and 7:00pm BRAND NAME Active Zinc 50 MG Oral Tablet Take [...] as needed (for moderate pain (4-6)). Active Ondansetron HCl 4 MG Oral Tablet (Zofran) Take 1 Tablet by mouth every 6 hours as needed for Nausea. Active Ensure Original Oral Liquid Take by [...] as of this encounter (statuses as of 10/09/2023) Active Problems Problem Noted Date Diagnosed Date Elevated blood pressure, situational 02/17/2021 Malignant neoplasm [...] as of this encounter (statuses as of 10/09/2023) Resolved Problems Problem Noted Date Diagnosed Date [...] as of this encounter (statuses as of 10/09/2023) Immunizations Name Administration Dates Next Due Pneumococcal [...] encounter Miscellaneous Notes * Telephone Encounter - Naila Saravia OSA - 10/09/2023 1:33 PM EDT Copy put in FMLA bin * Telephone Encounter - Naila Saravia OSA - 10/09/2023 1:20 PM EDT Forms faxed to [phone] on [phone]. * Telephone Encounter - Betina Millan OSA - 09/28/2023 12:39 PM EDT Luke dropped off [employer] [place] forms for Jose Nation to be filled out. Please fax forms to [phone]. Form placed in Jose Nation's mail bin. * Telephone Encounter - Christine Hazel RN - 09/28/2023 9:15 AM EDT Call from pt's son Luke His current FMLA for pt is going to 10/05/23 He is looking to have new [place] paperwork completed to renew it for the next year Requesting intermittent leave for assisting with pt He will drop off paperwork today, aware it may take a few days to a week to get completed He will obtain fax number for his work so that it can be faxed once completed FYCris Garcia documented in this encounter Plan of Treatment Upcoming Encounters Date Type Department Care Team (Late st Contact Info) Description 10/13/2023 1:30 PM EDT [facility] Visit [facility] [place] 21 agataRONI Holcomb [phone] Wilbert Cade MD [address] [facility] [address] [place] [address] 10/25/2023 12:00 PM EDT Home Visit Care Coordination and Integration [address] [place] [address] German Esquivel [facility] Health Smt Technician [address] [place] [address] 01/08/2024 12:00 PM EDT Office Visit [facility] [place] 21 JalenagataRONI Holcomb [phone] Davonte Nation PA-C 21 [facility] [place] [address] Health Maintenance Due Date Last Done [...] D LEVEL ONCE IN A LIFETIME-USE SMARTSET# [id number] Completed 01/02/2023, 12/02/2021, 11/08/2020, Additional history exists [...] Documents on File Type Date Recorded Patient Tow Truck Dispatcher Expl arian PATEL 10/06/2022 [place] OR [facility] FOR LIFE-SUSTAINING TREATMENT * No [...] Directives occurred with: Not Discussed Care Teams Investigative Agent Relationship Specialty Start Date End Date Davonte Nation PA-C 21 RON[address] Rothman [phone] PCP - General Physician Smt Technician 04/22/22 documented as of this encounter
--- OUTSIDE RECORDS SUMMARY | 2023-11-04 13:39 | External Medical Summary | Summary of Care ---
Author Name Unknown Organization [facility] Address [address] [facility] [address] Phone [phone] Care Team Providers Care Telecommunications Engineer Name Role Phone Davonte Nation PA-C Primary Care Provider [phone] Reason for Visit * Reason Onset Date Comments Forms Request 09/28/2023 Encounter Details Date Type Department Care Team (Late st Contact Info) Description 09/28/2023 [facility] [phone] Davonte Nation PA-C 21 [facility] RONI RUSSO [address] Forms Request Allergies Active [...] 10/09/2023 1:20 PM EDT Forms faxed to [phone] on [phone]. * Telephone Encounter - Betina Millan OSA - 09/28/2023 12:39 PM EDT Luke dropped off [employer] [place] forms for Jose Nation to be filled out. Please fax forms to [phone]. Form placed in Jose Nation's mail bin. [...] Description 10/13/2023 1:30 PM EDT [facility] [place] 21 agataRONI Holcomb [phone] Wilbert Cade MD [address] [facility] [address] [place] [address] 10/25/2023 12:00 PM EDT Home Visit Care Coordination and Integration [address] [place] [address] German Esquivel [facility] Health Condenser Setter [address] [place] [address] 01/08/2024 12:00 PM EDT Office Visit [facility] [place] 21 JalenagataRONI [address]comb [phone] Davonte Nation PA-C 21 [facility] [place] [address] Health Maintenance Due Date Last Done [...] D LEVEL ONCE IN A LIFETIME-USE SMARTSET# [id number] Completed 01/02/2023, 12/02/2021, 11/08/2020, Additional history exists [...] Documents on File Type Date Recorded Patient Folding Machine Feeder Expl arian PATEL 10/06/2022 [place] OR [facility] FOR LIFE-SUSTAINING TREATMENT * No Code [...] Directives occurred with: Not Discussed Care Teams Telecommunications Engineer Relationship Specialty Start Date End Date Davonte Nation PA-C 21 RON[address]man [phone] PCP - General Physician Condenser Setter 04/22/22 documented as of this encounter
--- OUTSIDE RECORDS SUMMARY | 2023-11-04 13:39 | External Medical Summary ---
Author Name Unknown Address Unknown Organization [id number]:[facility] - [address] [place] [address] [address]. [address] TAMAYO [address] Laboratory Report Ordering Provider Test Date Status GAMALIEL MENON 07/19/2023 06:44:00 Final Observation Date Value Abnormality Reference (Units ) Status WBC, Total 07/19/2023 06:44:00 4.90 4.00-10.80 (K/uL) Final RBC 07/19/2023 06:44:00 3.57 3.85-5.15 (M/uL) Final Hemoglobin 07/19/2023 06:44:00 10.1 Below low normal 12.0-15.3 (g/dL) Final HCT 07/19/2023 06:44:00 31.1 Below low normal 36.0-45.2 (%) Final MCV 07/19/2023 06:44:00 87.1 81.5-97.5 (fL) Final MCH 07/19/2023 06:44:00 28.3 27.0-34.0 (pg) Final MCHC 07/19/2023 06:44:00 32.5 32.0-36.0 (g/dL) Final RDW 07/19/2023 06:44:00 15.3 11.5-15.5 (%) Final Platelets 07/19/2023 06:44:00 185 140-400 (K/uL) Final MPV 07/19/2023 06:44:00 11.0 6.6-11.1 (fL) Final Nucleated erythrocytes/100 leukocytes [Ratio] in Blood by Automated count 07/19/2023 06:44:00 0 <=0 (/100 WBCs) Final Performing Location [facility] - [address] [address]
--- OUTSIDE RECORDS SUMMARY | 2023-11-04 13:39 | External Medical Summary ---
Author Name Unknown Address Unknown Organization K01:[facility] [address] [address] Laboratory Report Ordering Provider Test Date Status GAMALIEL MENON 07/19/2023 06:44:00 Final Observation Date Value Abnormality Reference (Units ) Status Triglyceride 07/19/2023 06:44:00 62 <=174 ( mg/dL) Final Triglyceride Reference Range s (mg/dL):
<150 Acceptable
150-174 Borderline high
175-499 High
>=500 Very high Cholesterol 07/19/2023 06:44:00 170 <200 (mg /dL) Final Total Cholesterol Reference Ranges (mg/dL):
<200 Desirable
200-239 Borderline high
>=240 High HDL 07/19/2023 06:44:00 51 >49 (mg/dL ) Final HDL Cholesterol Reference Ra nges (mg/dL):
>=60 High (Desirable)
<50 Low (Undesirable) For Females
<40 Low (Undesirable) For Males NON-HDL CHOLESTEROL 07/19/2023 06:44:00 119 <=159 (mg/dL) Final Non-HDL Cholesterol Referenc e Range (mg/dL):
<100 Target level for high risk ASCVD patient
<130 Optimal for general population
130-159 Near optimal for general population
160-189 Borderline High
190-219 High
>=220 Very High LDL, (calculated) 07/19/2023 06:44:00 107 <= 129 (mg/dL) Final LDL Cholesterol Reference Ra nges (mg/dL):
<70 Target level for high risk ASCVD patient
<100 Optimal for general population
100-129 Near optimal for general population
130-159 Borderline high
160-189 High
>=190 Very high Performing Location [facility] [place] [address] [facility] [address]
--- OUTSIDE RECORDS SUMMARY | 2023-11-04 13:39 | External Medical Summary ---
Author Name Unknown Address Unknown Organization [id number]:[facility] - [address] [facility] [place] [address] Laboratory Report Ordering Provider Test Date Status GAMALIEL MENON 07/19/2023 06:44:00 Final Observation Date Value Abnormality Reference (Units ) Status SYNC LEUKOCYTES IN BLOOD BY AUTOMATED COUNT 07/19/2023 06:44:00 4.90 4.00-10.80 (K/uL) Final Segs 07/19/2023 06:44:00 58.4 40.0-75.0 (%) Final Lymphs % 07/19/2023 06:44:00 22.9 18.0-42.0 (%) Final Monos 07/19/2023 06:44:00 10.2 1.0-11.0 (%) Final Eosinophils 07/19/2023 06:44:00 7.3 Above high normal 0.0-6.0 (%) Final Basos 07/19/2023 06:44:00 1.0 0.0-2.0 (%) Final Immature Granulocyte, Percent 07/19/2023 06:44:00 0.2 0.0-2.0 (%) Final Absolute Segs 07/19/2023 06:44:00 2.86 1.80-7.70 (K/uL) Final Lymphs, absolute 07/19/2023 06:44:00 1.12 1.00-4.80 (K/ul) Final Monos, Abs 07/19/2023 06:44:00 0.50 0.00-1.10 (K/uL) Final Eos, Abs 07/19/2023 06:44:00 0.36 0.00-0.70 (K/uL) Final Basos, Abs 07/19/2023 06:44:00 0.05 0.00-0.20 (K/uL) Final Immature Granulocytes, Number 07/19/2023 06:44:00 0.01 0.00-0.20 (K/uL) Final Performing Location [facility] - [facility] [address] [place] [address]
--- OUTSIDE RECORDS SUMMARY | 2023-11-04 13:39 | External Medical Summary | Summary of Care ---
Author Name Unknown Organization [facility] Address [address] [place] [address] Phone [phone] Care Team Providers Care Skin Lifter Bacon Name Role Phone Davonte Nation PA-C Primary Care Provider [phone] Reason for Visit * Reason Comments Order Request Wheelchair Encounter Details Date Type Department Care Team (Late st Contact Info) Description 10/13/2023 1:30 PM EDT Office Visit [facility] [address] [facility] [place] [phone] Wilbert Cade MD [address] [address] Generalized osteoarthrosis, involving multiple sites*; Ambulatory dysfunction; Risk and functional assessment; History of falling Allergies Active Allergy Reactions Criticality Noted Date Comments Zolpidem Other (Please comment) 09/04/2016 hallucinations Oxycodone-Acetaminophe n Other (Please comment) 02/26/2007 hallusanates documented as of this encounter (statuses as of 10/14/2023) Medications Medication Sig Dispensed Refills Start Date [...] as of this encounter (statuses as of 10/14/2023) Active Problems Problem Noted Date Diagnosed Date [...] as of this encounter (statuses as of 10/14/2023) Resolved Problems Problem Noted Date Diagnosed Date [...] as of this encounter (statuses as of 10/14/2023) Immunizations Name Administration Dates Next Due Pneumococcal [...] 10 times. Repeat this throughout the day. [employer] Patient Education Copyright 2008 - 2010 Jj [...] Order Request Wheelchair Chief Complaint to myself: [id number] History of Present Illness: No brief clinical history available. Nursing Notes: Nesha Duffy LPN 10/13/23 1313 Signed Chief Complaint Patient presents with Order Request Wheelchair HPI: Pleasant 88-year-old female She has here for a [id number]-[id number] encounter so she can get a wheelchair She reports that she has been home for 2 weeks now Apparently she was living at [facility]. Per previous notes, she came home on SundaySeptember 28. 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 Ailyn has three children. Mynor is [facility], one in [place] and one in [place]. Four grands, and four greats. Social Determinants [...] position When I ask her to do [id number], primarily the patient speaks. But sometimes she [...] and I placed the requestfor that DME I spent a total of 40-54 minutes [...] 10 times. Repeat this throughout the day. [employer] Patient Education Copyright 2009 - 2010 Jj except where otherwise noted. [...] This chart was completed in part utilizing [employer] Speech Voice Recognition Software. 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
--- OUTSIDE RECORDS SUMMARY | 2023-11-04 13:39 | External Medical Summary | Summary of Care ---
Author Name Unknown Organization [facility] Address [address] [place] [address] Phone [phone] Care Team Providers Care Jordan Worker Name Role Phone Chapis Davonte Sellers PA-C Primary Care Provider [phone] Reason for Visit * Reason Onset Date Comments STAIR Lung Nodule 08/21/2023 NLP Review Encounter Details Date Type Department Care Team (Late st Contact Info) Description 08/21/2023 Telephone STAIR LUNG NODULE [address] [place] [address] Program, Stair [address] [place] [address] STAIR Lung Nodule (NLP Review) Allergies Active Allergy Reactions Criticality Noted Date Comments Zolpidem Other (Please comment) 09/04/2016 hallucinations Oxycodone-Acetaminophe n Other (Please comment) 02/26/2007 hallusanates documented as of this encounter (statuses as of 08/24/2023) Medications Medication Sig Dispensed Refills Start Date End Date Status Vitamin B-6 50 MG Oral Tablet Take 1 Tablet by mouth in the morning. 0 Active ALPRAZolam 0.5 MG Oral Tablet Take 0.5 Tablets by mouth 2 times a day. At 1:00pm and 7:00pm BRAND NAME 0 Active Zinc 50 MG Oral Tablet Take 1 Tablet by mouth every night at bedtime. 0 Active Acetaminophen 325 MG Oral Tablet (Tylenol) Take 2 Tablets by mouth every 6 hours as needed for Fever (Temp Greater than ) (100.4). Not to exceed 3g/24hrs 0 Active Ibuprofen 600 MG Oral Tablet (Motrin) Take 1 Tablet by mouth every 6 hours as needed (for moderate pain (4-6)). 0 Active Ondansetron HCl 4 MG Oral Tablet (Zofran) Take 1 Tablet by mouth every 6 hours as needed for Nausea. 0 Active Ensure Original Oral Liquid Take by mouth. As needed for dietary supplement. Do not exceed 2 bottles per day. 0 Active ALPRAZolam 0.5 MG Oral Tablet (xaNAX)Indications:A nxiety Take 1 Tablet by mouth in the morning. BRAND NAME. 30 Tablet 5 06/26/2023 Active ALPRAZolam 0.25 MG Oral Tablet (xaNAX) Take one tablet at 12 PM and take one tablet at 6 PM. Brand Necessary 60 Tablet 2 06/27/2023 Active documented as of this encounter (statuses as of 08/24/2023) Active Problems Problem Noted Date Diagnosed Date [...] as of this encounter (statuses as of 08/24/2023) Resolved Problems Problem Noted Date Diagnosed Date [...] as of this encounter (statuses as of 08/24/2023) Immunizations Name Administration Dates Next Due Pneumococcal [...] encounter Miscellaneous Notes * Telephone Encounter - Tata Rodríguez LPN - 08/24/2023 8:28 AM EDT Pulmonary Nodule NLP Review Pierre PCP - Patient contacted. Explained Pulmonary Nodule NLP Review. Patient's response: STAIRenrollment. Tata Rodríguez LPN STAIR Coordinator Patient managed in STAIR Program for Pulmonary Nodule - banner added * Telephone Encounter - Tata Rodríguez LPN - 08/23/2023 11:37 AM EDT Returned son's call Left message for return call * Telephone Encounter - Tata Rodríguez LPN - 08/21/2023 2:[address] Chest 09/17/22 Left message for son to return call to enroll patient in STAIR documented in this encounter Plan of Treatment Upcoming Encounters Date Type Department Care Team (Late st Contact Info) Description 01/08/2024 12:00 PM EDT Office Visit [facility] [place] [address] [phone] Davonte Nation PA-C [address] [phone] Health Maintenance Due Date Last Done Comments [...] D LEVEL ONCE IN A LIFETIME-USE SMARTSET# [id number] Completed 01/02/2023, 12/02/2021, 11/08/2020, Additional history exists [...] Documents on File Type Date Recorded 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 Question Answer Comments Discussion of Advance Directives occurred with: Family Code Status History Code Status Date Activated Date Inactivated Comments Full Code 11/06/2018 2:57 AM 11/07/2018 8:53 PM This order reflects the patients wishes and were consensually agreed upon. Question Answer Comments Discussion of Advance Directives occurred with: Not Discussed Care Teams Jordan Worker Relationship Specialty Start Date End Date Davonte Nation PA-C [address] [address] PCP - General Physician Rehabilitation Supervisor 04/22/22 documented as of this encounter
--- OUTSIDE RECORDS SUMMARY | 2023-11-04 13:39 | External Medical Summary | Summary of Care ---
Author Name Unknown Organization [facility] Address [address] [place] [address] Phone [phone] Care Team Providers Care Sheet Turner Name Role Phone Davonte Nation PA-C Primary Care Provider [phone] Reason for Visit * Reason Comments Hypertension * Auth/Cert Specialty Diagnoses / Procedures Referred By Ramez grace Referred To Contact [facility] [address] [place] [place] [address] Phone: [phone] Emergency Medicine [facility] [address] [place] [address] Referral ID Status Reason Start Date Expiration Date Visits Re quested Visits Authorized [id number] Encounter Details Date Type Department Care Team (Late st Contact Info) Description 07/22/2023 6:01 AM EDT - 07/22/2023 9:02 AM EDT [facility] ([facility]) [address] [facility] [place] [id number] Princess Jj DO [address] [facility] [place] [address] Saurabh Roman MD [address] [facility] [place] [id number] Hypertension, unspecified type (Primary Dx); Anxious mood Discharge Disposition: SNF Allergies Active Allergy Reactions Criticality Noted Date Comments Zolpidem Other (Please comment) 09/04/2016 hallucinations Oxycodone-Acetaminophe n Other (Please comment) 02/26/2007 hallusanates documented as of this encounter (statuses as of 07/22/2023) Medications Medication Sig Dispensed Refills Start Date [...] as of this encounter (statuses as of 07/22/2023) Active Problems Problem Noted Date Diagnosed Date [...] as of this encounter (statuses as of 07/22/2023) Resolved Problems Problem Noted Date Diagnosed Date [...] as of this encounter (statuses as of 07/22/2023) Immunizations Name Administration Dates Next Due Pneumococcal [...] Sign Reading Time Taken Comments Blood Pressure 180/86 07/22/2023 8:00 AM EDT Pulse 80 07/22/2023 8:00 AM EDT Temperature 36.2 C (97.2 F) 07/22/2023 6:00 AM ED T Respiratory Rate 18 07/22/2023 8:00 AM EDT Oxygen Saturation 97% 07/22/2023 8:00 AM EDT Inhaled Oxygen Concentration - - Weight [...] No 09/17/2022 documented as of this encounter Discharge Instructions * Discharge Instructions* Saurabh Roman MD - 07/22/2023 8:02 AM EDT Your blood pressure improved while here in the emergency department. Please take your medications as prescribed. Return to the emergency department with chest pain, shortness of breath, fevers, chills. You declined a chest x-ray, viral testing, and urinalysis today. If you are agreeable, please have these obtained in the outpatient setting. Please return to this Emergency Department or seek emergent care if your symptoms change, worsen significantly, or concern you in any way. Concerning symptoms that would require re-evaluation include, but are not necessarily limited to: - Fevers or shaking chills - Chest pain or difficulty breathing - Severe headache, numbness or tingling, or confusion - Persistent vomiting, severe abdominal pain, abdominal bloating, or bloody bowel movements - Inability to urinate or if your urine is significantly decreased Let us know if you have any questions regarding these instructions or the care you received here before leaving the Emergency Department. Please read the attached pamphlet for more information about your diagnosis and treatment. documented in this encounter ED Notes * Saurabh Roman MD - 07/22/2023 7:06 AM EDT Sign Out Note I received patient in sign-out from Dr Jj at change of shift. Briefly, this is a 87 year old female who presented to the ED with: Recent low-grade fever at her nursing facility. She was provided with Tylenol. She was becoming more anxious this morning and provided with her Xanax earlier than usual. She reportedly missed a recent dose. Her blood pressure was elevated at her nursing facility when she was sent here for further evaluation. Of note, she had a fall many months ago and wears a soft C-collar. She was hypertensive when she arrives but her latest blood pressure has improved at 177/85. Sign out pending: - urinalysis Follow up: ED Course as of 07/22/23 0803 Sun Jul 22, 2023 0741 Patient declining chest x-ray. [DR] 0744 BP: 148/75 Improved [] 0758 Patient reassessed. She is resting in bed very comfortably. She does not want further testing including viral testing, chest x-ray, urinalysis (she has declined my recommendation to pursue these). She denies any chest pain, shortness of breath, abdominal pain at this time. Regular rate on exam. Abdomen is soft and nontender. She has a capacity to make this decision. She is alert and oriented here. She understands we could be missing an infection but is understanding and feels much improved. Her blood pressure has improved. She would like to be discharged at this time. We will arrange transport. [DR] ED Course User Index [] Saurabh Roman MD Patient was clinically stable for discharge upon reassessment; return precautions were discussed - patient verbalized understanding and was agreeable; all their questions were answered prior to discharge; patient was instructed to return to the ED if they were at all concerned or if they felt their signs/symptoms were worsening Saurabh Roman MD * Princess Jj, - 07/22/2023 6:16 AM EDT HISTORY OF PRESENT ILLNESS Ailyn Link is a 87 year old female who presents to the ED for evaluation of Hypertension. The patient was seen at 07/22/23 0605. Patient is an 87-year-old female who arrives via EMS from the nursing facility with a chief complaint of hypertension. The patient has past medical history of anxiety, hyperlipidemia, pancreatic cancer, hypertension. The patient states that during routine vitalscheck she was found have a fever at the custodial they gave her Tylenol. It then checked her blood pressure and it was elevated but the patient states she was starting to get anxious and she was requesting her dose of Xanax that as prescribed to her. They were concerned about her blood pressure being elevated so sent her in for evaluation and the closest facility was here, however the patient wanted to be sent to [facility]. The patient denies any complaints and just states that she is anxious and she wants her Xanax. Denies any headache, chest pain, shortness of breath, abdominal pain,nausea or vomiting. She denies any recent illnesses. History provided by: patient teenage program director used: No Hypertension Associated symptoms: anxiety Associated symptoms: no abdominal pain, no chest pain, no dizziness, no fatigue, no fever, no headaches, no hematuria, no nausea, no neck pain, no palpitations, no shortness of breath and not vomiting Review of Systems Constitutional: Negative for chills, fatigue and fever. HENT: Negative for congestion, rhinorrhea, sinus pressure, sinus pain, sneezing and sore throat. Eyes: Negative for photophobia and visual disturbance. Respiratory: Negative for cough, shortness of breath and wheezing. Cardiovascular: Negative for chest pain and palpitations. Gastrointestinal: Negative for abdominal pain, constipation, diarrhea, nausea and vomiting. Genitourinary: Negative for dysuria, frequency and hematuria. Musculoskeletal: Negative for back pain, neck pain and neck stiffness. Skin: Negative for rash and wound. Neurological: Negative for dizziness, light-headedness and headaches. Psychiatric/Behavioral: The patient is nervous/anxious. The patient's allergies, past history, and medications were reviewed. PHYSICAL EXAM Initial Vitals (see all): BP 196/112 | Pulse 79 | Resp 18 | Temp 97.2 | O2 97 %Weight 32.07 kg | Height 144.8 cm | BMI 15.3 kg/m2 Initial Pain Assessment (see all): 0 (no pain)/10 ([facility] Adult Scale 0-10) Physical Exam Constitutional: General: She is not in acute distress. Appearance: She is not toxic-appearing. HENT: Head: Normocephalic. Nose: Nose normal. Mouth/Throat: Mouth: Mucous membranes are moist. Eyes: Pupils: Pupils are equal, round, and reactive to light. Cardiovascular: Rate and Rhythm: Normal rate. Heart sounds: No murmur heard. No gallop. Pulmonary: Effort: No respiratory distress. Breath sounds: Normal breath sounds. No wheezing. Comments: Clear breath sounds in all lung gardiner. No acute respiratory distress. Pulse ox 97% on room air. Abdominal: General: There is no distension. Palpations: Abdomen is soft. Tenderness: There is no abdominal tenderness. Comments: No abdominal tenderness palpation. Abdomen is soft and nondistended. No guarding or rigidity. Musculoskeletal: General: No swelling or deformity. Normal range of motion. Cervical back: No rigidity. Comments: No lower extremity edema present. Lymphadenopathy: Cervical: No cervical adenopathy. Skin: General: Skin is warm. Capillary Refill: Capillary refill takes less than 2 seconds. Coloration: Skin is not jaundiced. Findings: No bruising. Neurological: Mental Status: She is alert and oriented to person, place, and time. Cranial Nerves: No cranial nerve deficit. Motor: No weakness. Comments: Patient is alert oriented x3. No focal neurological deficit. PROCEDURES AND TREATMENTS ED Orders | ED Results EKG Interpretation: Sinus rhythm, heart rate 70. No acute ischemic changes seen. MEDICAL DECISION MAKING Nursing notes and vital signs were reviewed. ED Course as of 07/22/23 0805 Sun Jul 22, 2023 0650 Patient will be signed out to the oncoming physician, . [MS] 0741 Patient declining chest x-ray. [DR] 0744 BP: 148/75 Improved [DR] ED Course User Index [DR] Saurabh Roman MD [MS] Princess Jj DO Patient is an 87-year-old female who presents a chief complaint of anxiety and hypertension. The patient does have a longstanding history of hypertension states she was getting anxious at the [facility] and she asked her Xanax. The patient was hypertensive on arrival, she was given her Xanax and her blood pressure is coming down. Labs are still pending at this time. The patient [facility], . Amount and/or Complexity of Data Reviewed Labs: ordered. ECG/medicine tests: ordered. Risk Prescription drug management. Clinical Impressions Anxiety Disposition No disposition documented. Princess Jj * Nikki Pedraza RN - 07/22/2023 6:07 AM EDT Patient presents from [facility] via EMS. Patient was hypertensive this morning. 195/107 forS staff. 190/120 HR 80. Agitated and anxious. When I spoke with patient she was upset that the staff would not give her her morning dose of xanax, reports that they are messing with my doses. Spoke to Trae from [facility] which reports that the patient had a fever over night and was given tylenol. When attempting to recheck her temp, patient was found to be hypertension. Trae reports that the patient wanted to come to the ED. This nurse then asked Trae why the patient was unable to have her morning dose of Xanax, Trae reports that it is not due until 0700 and it can not be given until them documented in this encounter Miscellaneous Notes * ED Bilingual Case Manager Note - Laya Shafer RN - 07/22/2023 8:34 AM EDT Called [facility] to update staff that patient will be arriving back to their facility shortly via [facility] wheelchair van * ED Bilingual Case Manager Note - Karishma Palmer RN - 07/22/2023 6:11 AM EDT Pt came to ED due to HTN via EMS. Pt HTN en route for EMS. Pt HTN in triage. Pt states 0/10 pain. Pt states she is anxious and wanted her "xanax" for "anxiety". Pt states last dose yesterday and hasn't had another dose from youth support worker. Pt denies MCCLAIN, dizziness, CP, SOB, /GI abnormalities. +PMS in extremities. Pt states ambulates with walker at home. AOX4. 0627: medicated and tolerated well. Blood collected and sent to lab. Call gonsalez in reach. Pt aware of needed urine. 0647: provider aware of labs 0655: pt sleeping in bed and resting. documented in this encounter Plan of Treatment Upcoming Encounters Date Type Department Care Team (Late st Contact Info) Description 01/08/2024 12:00 PM EDT Office Visit [facility] [address] [phone] Davonte Nation PA-C [address] [phone] Scheduled Orders Name Type Priority Associated Diagnoses Order Schedule URINALYSIS, REFLEX TO MICROSCOPIC Lab STAT Perform Now for 1 Occurrences starting 07/22/2023 until 07/22/2023 XR CHEST 1 VIEW Medical Imaging STAT Perf orm Now for 1 Occurrences starting 07/22/2023 until 07/22/2023 Health Maintenance Due Date Last Done Comments [...] - season) 2023 Influenza Vaccine (FLU shot) (#1) 2023 VITAMIN D LEVEL ONCE IN A LIFETIME-USE SMARTSET# [id number] Completed 01/02/2023, 12/02/2021, 11/08/2020, Additional history exists [...] Not on filedocumented as of this encounter Procedures Procedure Name Priority Date/Time Associated Diagnosis Comments DIFFERENTIAL, AUTOMATED STAT 07/22/2023 6:24 AM EDT TROPONIN T, HIGH SENSITIVITY STAT 07/22/2023 6:24 AM EDT BASIC METABOLIC PANEL STAT 07/22/2023 6:24 AM EDT CBC STAT 07/22/2023 6:24 AM EDT CBC STAT 07/22/2023 6:24 AM EDT documented in this encounter Results * DIFFERENTIAL, AUTOMATED (07/22/2023 6:24 AM EDT) WBC 6.33 4.00 - 10.80 K/uL 07/22/2023 6:31 AM EDT LAB[facility] Neutrophils % 68.6 40.0 - 75.0 % 07/22/2023 6:31 AM EDT [facility] Lymphocytes % 19.0 18.0 - 42.0 % 07/22/2023 6:31 AM EDT [facility] Monocytes % 8.1 1.0 - 11.0 % 07/22/2023 6:31 AM EDT [facility] Eosinophils % 3.2 0.0 - 6.0 % 07/22/2023 6:31 AM EDT [facility] Basophils % 0.9 0.0 - 2.0 % 07/22/2023 6:31 AM EDT [facility] Immature Granulocytes % 0.2 0.0 - 2.0 % 07/22/2023 6:31 AM EDT [facility] Absolute Neutrophils 4.35 1.80 - 7.70 K/uL 07/22/2023 6:31 AM EDT [facility] Absolute Lymphocytes 1.20 1.00 - 4.80 K/ul 07/22/2023 6:31 AM EDT [facility] Absolute Monocytes 0.51 0.00 - 1.10 K/uL 07/22/2023 6:31 AM EDT LABORATORY [facility] Absolute Eosinophils 0.20 0.00 - 0.70 K/uL 07/22/2023 6:31 AM EDT LABORATORY [facility] Absolute Basophils 0.06 0.00 - 0.20 K/uL 07/22/2023 6:31 AM EDT LABORATORY [facility] Absolute Immature Granulocytes 0.01 0.00 - 0.20 K/uL 07/22/2023 6:31 AM EDT [facility] Blood Venous blood specimen / Unknown Venipuncture / Unknown 07/22/2023 6:24 AM EDT 07/22/2023 6:28 AM EDT Princess Jj DO LAB BLOOD [facility] Organization Address City/State/[facility] Co de Phone Number LABORATORY [address] [address] * (ABNORMAL) CBC (07/22/2023 6:24 AM EDT) Pathologist [facility] [place] WBC 6.33 4.00 - 10.80 K/uL 07/22/2023 6:31 AM EDT [facility] RBC 4.20 3.85 - 5.15 M/uL 07/22/2023 6:31 AM EDT LABORATORY [facility] HGB 11.9(L) 12.0 - 15.3 g/dL 07/22/2023 6:31 AM EDT [facility] HCT 36.8 36.0 - 45.2 % 07/22/2023 6:31 AM EDT LABORATORY [facility] MCV 87.6 81.5 - 97.5 fL 07/22/2023 6:31 AM EDT LABORATORY [facility] MCH 28.3 27.0 - 34.0 pg 07/22/2023 6:31 AM EDT LABORATORY [facility] MCHC 32.3 32.0 - 36.0 g/dL 07/22/2023 6:31 AM EDT LABORATORY [facility] RDW 15.3 11.5 - 15.5 % 07/22/2023 6:31 AM EDT LABORATORY [facility] PLT 191 140 - 400 K/uL 07/22/2023 6:31 AM EDT LABORATORY [facility] MPV 10.5 6.6 - 11.1 fL 07/22/2023 6:31 AM EDT LABORATORY [facility] nRBCs 0 <=0 /100 WBCs 07/22/2023 6:31 AM EDT LAB[facility]ATORY [facility] Blood Venous blood specimen / Unknown Venipuncture / Unknown 07/22/2023 6:24 AM EDT 07/22/2023 6:28 AM EDT Princess Jj DO LAB BLOOD DEBORAH PENG [facility]AT[facility] [address] [address] * TROPONIN T, HIGH SENSITIVITY (07/22/2023 6:24 AM EDT) [facility] Troponin T, High Sensitivity 8 <=14 ng/L 07/22/2023 6:46 AM EDT LABORATORY [facility] Blood Venous blood specimen / Unknown Venipuncture / Unknown 07/22/2023 6:24 AM EDT 07/22/2023 6:28 AM EDT Princess jJ LAB BLOOD [facility] [address] [phone] * (ABNORMAL) BASIC METABOLIC PANEL (07/22/2023 6:24 AM EDT) BUN 9 6 - 20 mg/dL 07/22/2023 6:45 AM EDT LABORATORY [facility] Creatinine 0.4(L) 0.5 - 1.0 mg/dL 07/22/2023 6:45 AM EDT [facility] Estimated Glomerular Filtration Rate >90 >=60 mL/min 07/22/2023 6:45 AM EDT [facility] Comment:eGFR is calculated b ased on the CKD-EPI 2020 equation Sodium 137 135 - 146 mmol/L 07/22/2023 6:45 AM EDT [facility] Potassium 4.3 3.5 - 5.1 mmol/L 07/22/2023 6:45 AM EDT [facility] Chloride 101 98 - 107 mmol/L 07/22/2023 6:45 AM EDT [facility] CO2 27 22 - 32 mmol/L 07/22/2023 6:45 AM EDT [facility] Anion Gap 9 7 - 15 mmol/L 07/22/2023 6:45 AM EDT [facility] Glucose 111 70 - 120 mg/dL 07/22/2023 6:45 AM EDT [facility] Calcium 9.3 8.4 - 10.2 mg/dL 07/22/2023 6:45 AM EDT [facility] Blood Venous blood specimen / Unknown Venipuncture / Unknown 07/22/2023 6:24 AM EDT 07/22/2023 6:28 AM EDT Princess Jj DO LAB BLOOD [facility] [address] [address] documented in this encounter Visit Diagnoses Diagnosis Hypertension, unspecified type- Primary Anxious mood Anxiety state, unspecified documented in this encounter Administered Medications Inactive Administered Medications - up to 3 most recent administrations Medication Order MAR Action Action Date Dose Rate Site ALPRAZolam (xaNAX) tab 0.5 mg 0.5 mg, Oral, ONCE, On 07/22/23 at 0700, For 1 dose Given 07/22/2023 6:19 AM EDT 0.5 mg documented in this encounter Active and Recently Administered Medications Due to Daylight Saving Time, this section may contain times in both EST and EDT. Scheduled Medication Order 07/20/2023 07/21/2023 07/22/2023 ALPRAZolam (xaNAX) tab 0.5 mg (COMPLETED) 0.5 mg, Oral, ONCE, On 07/22/23 at 0700, For 1 dose 0619 (Given - Provid er: Karishma Palmer RN) documented in this encounter Advance Directives Documents on File Type Date Recorded Patient Senior Storage Administrator Expl anation POLST 10/06/2022 [place] OR [facility] FOR LIFE-SUSTAINING TREATMENT Latest Code Status on [...] Directives occurred with: Not Discussed Care Teams Sheet Turner Relationship Specialty Start Date End Date Davonte Nation PA-C [address] [phone] PCP - General Physician Machine Adjuster Leader 04/22/22 documented as of this encounter
--- OUTSIDE RECORDS SUMMARY | 2023-11-04 13:39 | External Medical Summary | Summary of Care ---
Author Name Unknown Organization [facility] Address [address] [place] [address] Phone [phone] Care Team Providers Care Cracking Machine Operator Name Role Phone Chapis Davonte Sellers PA-C Primary Care Provider [phone] Reason for Visit * Reason Onset Date Comments STAIR Lung Nodule 08/21/2023 NLP Review Encounter Details Date Type Department Care Team (Late st Contact Info) Description 08/21/2023 Telephone STAIR LUNG NODULE [address] [place] [address] Program, Stair [address] [place] [address] STAIR Lung Nodule (NLP Review) Allergies Active Allergy Reactions Criticality Noted Date Comments Zolpidem Other (Please comment) 09/04/2016 hallucinations Oxycodone-Acetaminophe n Other (Please comment) 02/26/2007 hallusanates documented as of this encounter (statuses as of 08/21/2023) Medications Medication Sig Dispensed Refills Start Date [...] as of this encounter (statuses as of 08/21/2023) Active Problems Problem Noted Date Diagnosed Date [...] as of this encounter (statuses as of 08/21/2023) Resolved Problems Problem Noted Date Diagnosed Date [...] as of this encounter (statuses as of 08/21/2023) Immunizations Name Administration Dates Next Due Pneumococcal [...] 01/08/2024 12:00 PM EDT Office Visit [facility] [place] [address] [phone] Davonte Nation PA-C [address] [address] Health Maintenance Due Date Last Done [...] D LEVEL ONCE IN A LIFETIME-USE SMARTSET# [id number] Completed 01/02/2023, 12/02/2021, 11/08/2020, Additional history exists [...] Documents on File Type Date Recorded Patient Safety Lamp Keeper Expl anation POLST 10/06/2022 [place] OR [facility] FOR LIFE-SUSTAINING TREATMENT Latest Code Status on [...] Directives occurred with: Not Discussed Care Teams Cracking Machine Operator Relationship Specialty Start Date End Date Davonte Nation PA-C [address] [id number] PCP - General Physician Box Estimator 04/22/22 documented as of this encounter
--- OUTSIDE RECORDS SUMMARY | 2023-11-04 13:39 | External Medical Summary ---
Author Name Unknown Address Unknown Organization K1F:LABORATORY [facility] - [address] [facility] [place] [address] Laboratory Report Ordering Provider Test Date Status DANNA SHEPPARD 07/22/2023 06:24:59 Final Observation Date Value Abnormality Reference (Units ) Status SYNC LEUKOCYTES IN BLOOD BY AUTOMATED COUNT 07/22/2023 06:24:59 6.33 4.00-10.80 (K/uL) Final Segs 07/22/2023 06:24:59 68.6 40.0-75.0 (%) Final Lymphs % 07/22/2023 06:24:59 19.0 18.0-42.0 (%) Final Monos 07/22/2023 06:24:59 8.1 1.0-11.0 (%) Final Eosinophils 07/22/2023 06:24:59 3.2 0.0-6.0 (%) Final Basos 07/22/2023 06:24:59 0.9 0.0-2.0 (%) Final Immature Granulocyte, Percent 07/22/2023 06:24:59 0.2 0.0-2.0 (%) Final Absolute Segs 07/22/2023 06:24:59 4.35 1.80-7.70 (K/uL) Final Lymphs, absolute 07/22/2023 06:24:59 1.20 1.00-4.80 (K/ul) Final Monos, Abs 07/22/2023 06:24:59 0.51 0.00-1.10 (K/uL) Final Eos, Abs 07/22/2023 06:24:59 0.20 0.00-0.70 (K/uL) Final Basos, Abs 07/22/2023 06:24:59 0.06 0.00-0.20 (K/uL) Final Immature Granulocytes, Number 07/22/2023 06:24:59 0.01 0.00-0.20 (K/uL) Final Performing Location LABORATORY [facility] - [facility] [address] [place] [address]
--- OUTSIDE RECORDS SUMMARY | 2023-11-04 13:39 | External Medical Summary ---
Author Name Unknown Address Unknown Organization K1F:LABORATORY [facility] - [address] [place] [address] Laboratory Report Ordering Provider Test Date Status DANNA SHEPPARD 07/22/2023 06:24:59 Final Observation Date Value Abnormality Reference (Units ) Status BUN 07/22/2023 06:24:59 9 6-20 (mg/dL) Final Creatinine 07/22/2023 06:24:59 0.4 Below low normal 0.5-1.0 (mg/dL) Final Glomerular filtration rate/1.73 sq M.predicted [Volume Rate/Area] in Serum, Plasma or Blood by Creatinine-based formula (CKD-EPI) 07/22/2023 06:24:59 >90 >=60 (mL/min) Final eGFR is calculated based on the CKD-EPI 2020 equation SODIUM 07/22/2023 06:24:59 137 135-146 (m mol/L) Final Potassium 07/22/2023 06:24:59 4.3 3.5-5.1 (m mol/L) Final Cl 07/22/2023 06:24:59 101 98-107 (mm ol/L) Final CO2 07/22/2023 06:24:59 27 22-32 (mmo l/L) Final Anion gap 07/22/2023 06:24:59 9 7-15 (mmol /L) Final Glucose 07/22/2023 06:24:59 111 70-120 (mg /dL) Final Calcium 07/22/2023 06:24:59 9.3 8.4-10.2 ( mg/dL) Final Performing Location [facility] [address] [facility] [place] [address]
--- OUTSIDE RECORDS SUMMARY | 2023-11-04 13:39 | External Medical Summary | Summary of Care ---
Author Name Unknown Organization [facility] Address [address] [facility] [address] Phone [phone] Care Team Providers Care Gas Operations Analyst Name Role Phone Davonte Nation PA-C Primary Care Provider [phone] Reason for Visit * Reason Onset Date Comments Forms Request 09/28/2023 Encounter Details Date Type Department Care Team (Late st Contact Info) Description 09/28[facility]23 [facility] [address] MediaRONI [place] [address] Davonte Nation PA-C [facility] [place] [address] Forms Request Allergies [...] 10/09/2023 1:20 PM EDT Forms faxed to [phone] on [phone]. * Telephone Encounter - Betina Millan OSA - 09/28/2023 12:39 PM EDT Luke dropped off Ailyn's la forms for Jose Nation to be filled out. Please fax forms to [phone]. Form placed in Jose Nation's mail bin. [...] Description 10/13/2023 1:30 PM EDT Office [facility] [place] 21 agataRONI Holcomb [address] Wilbert Cade MD [address] [facility] [address] [place] [address] 10/25/2023 12:00 PM EDT Home Visit Care Coordination and Integration [address] [place] [address] German Esquivel [facility] Senior Accounting Manager [address] [place] [address] 01/08/2024 12:00 PM EDT Office Visit [facility] [place] 21 JalenagataRONI [place]comb [address] Davonte Nation PA-C 21 [facility] [address] Health Maintenance Due Date Last Done [...] D LEVEL ONCE IN A LIFETIME-USE SMARTSET# [id number] Completed 01/02/2023, 12/02/2021, 11/08/2020, Additional history exists [...] Documents on File Type Date Recorded Patient All Source Collection Manager Expl arian PATEL 10/06/2022 [place] [facility] FOR LIFE-SUSTAINING TREATMENT [...] Directives occurred with: Not Discussed Care Teams Gas Operations Analyst Relationship Specialty Start Date End Date Davonte Nation PA-C 21 RONI Rothman [phone] PCP - General Physician Senior Accounting Manager 04/22/22 documented as of this encounter
--- OUTSIDE RECORDS SUMMARY | 2023-11-04 13:39 | External Medical Summary | Summary of Care ---
Author Name Unknown Organization [facility] Address [address] [facility] [address] Phone [phone] Care Team Providers Care Electron Beam Machine Welder Setter Name Role Phone Davonte Nation PA-C Primary Care Provider [phone] Reason for Visit * Reason Comments eRx-Medication Refill Encounter Details Date Type Department Care Team (Late st Contact Info) Description 10/11/2023 Refill [facility] 21 [facility] [address] [place] [address] Davonte Nation PA-C [facility] [place] [address] Anxiety Allergies Active Allergy Reactions Criticality Noted Date Comments Zolpidem Other (Please comment) 09/04/2016 hallucinations Oxycodone-Acetaminophe n Other (Please comment) 02/26/2007 hallusanates documented as of this encounter (statuses as of 10/12/2023) Medications Medication Sig Dispensed Refills Start Date [...] as of this encounter (statuses as of 10/12/2023) Active Problems Problem Noted Date Diagnosed Date [...] as of this encounter (statuses as of 10/12/2023) Resolved Problems Problem Noted Date Diagnosed Date [...] as of this encounter (statuses as of 10/12/2023) Immunizations Name Administration Dates Next Due Pneumococcal [...] encounter Miscellaneous Notes * Telephone Encounter - Catie Poe [facility] - 10/12/2023 4:15 PM EDTRefused Prescriptions: Disp Refills Xanax 0.5 MG Oral Tablet 60 Tab*0 Sig: Take 1 tablet by mouth twice daily as needed for anxietyRefused By: CATIE POE for Refusal: Too soonReason forRefusal Comment: 10/10 sent 06/26 documented in this encounter Plan of Treatment Upcoming Encounters Date Type Department Care Team (Late st Contact Info) Description 10/13/2023 1:30 PM EDT Office Visit [facility] [place] 21 RONI Hassan [phone] Wilbert Cade MD [address] [address] 10/25/2023 12:00 PM EDT Home Visit Care Coordination and Integration [address] [place] [facility] [place] [address] German Esquivel [facility] Health Pharmaceutical Representative [address] [place] [address] 01/08/2024 12:00 PM EDT 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
--- OUTSIDE RECORDS SUMMARY | 2023-11-04 13:39 | External Medical Summary | Summary of Care ---
Author Name Unknown Organization [facility] Address [address] [place] [address] Phone [phone] Care Team Providers Care Training Program Developer Name Role Phone Chapis Davonte Sellers PA-C Primary Care Provider [phone] Reason for Visit * Reason Onset Date Comments STAIR Lung Nodule 08/21/2023 NLP Review Encounter Details Date Type Department Care Team (Late st Contact Info) Description 08/21/2023 Telephone STAIR LUNG NODULE [address] [place] [address] Program, Stair [address] [place] [address] STAIR Lung Nodule (NLP Review) Allergies Active Allergy Reactions Criticality Noted Date Comments Zolpidem Other (Please comment) 09/04/2016 hallucinations Oxycodone-Acetaminophe n Other (Please comment) 02/26/2007 hallusanates documented as of this encounter (statuses as of 08/23/2023) Medications Medication Sig Dispensed Refills Start Date [...] as of this encounter (statuses as of 08/23/2023) Active Problems Problem Noted Date Diagnosed Date [...] as of this encounter (statuses as of 08/23/2023) Resolved Problems Problem Noted Date Diagnosed Date [...] as of this encounter (statuses as of 08/23/2023) Immunizations Name Administration Dates Next Due Pneumococcal [...] Description 01/08/2024 12:00 PM EDT Office Visit [facility] 21 RON[place] [phone] Davonte Nation PA-C 21 [place] [address] Health Maintenance Due Date Last Done Comments Albumin/Creatinine Ratio 09/03/1953 DTaP,Tdap,and Td Vaccines (1 - Tdap) 1956 Zoster Vaccines (1 of 2) 09/03/1987 Pneumococcal Vaccine: 65+ Years (1 of 1 - PCV) 2002 DXA Scan 07/11/2013 07/11/2011 *BISPHONATE OR OTHER ACCEPTABLE MEDICATION NEEDED FOR OSTEOPOROSIS (REFER TO SMARTSET #1146) 05/15/2014 Depression Screening 12/02/2022 12/02/2021 COVID-19 Vaccine (1 - 2022- season) 2023 Influenza Vaccine (FLU shot) (Season Ended) 2024 VITAMIN D LEVEL ONCE IN A LIFETIME-USE SMARTSET# [id number] Completed 01/02/2023, 12/02/2021, 11/08/2020, Additional history exists [...] Documents on File Type Date Recorded Patient Radio Station Audio Engineer Expl anation POLST 10/06/2022 [place] [facility] FOR LIFE-SUSTAINING TREATMENT Latest Code Status on [...] Directives occurred with: Not Discussed Care Teams Training Program Developer Relationship Specialty Start Date End Date Davonte Nation PA-C 21 RONI Hassan [phone] PCP - General Physician Agriscience Technology Instructor 04/22/22 documented as of this encounter
--- OUTSIDE RECORDS SUMMARY | 2023-11-04 13:39 | External Medical Summary ---
Author Name Unknown Address Unknown Organization K01:[facility] [place] [address] [place] [address] Laboratory Report Ordering Provider Test Date Status GAMALIEL MENON 07/19/2023 06:44:00 Final Observation Date Value Abnormality Reference (Units ) Status Vitamin B12 07/19/2023 06:44:00 [phone] (pg/mL) Final Performing Location [facility] [place] [address] [place] [address]
--- OUTSIDE RECORDS SUMMARY | 2023-11-04 13:39 | External Medical Summary ---
Author Name Unknown Address Unknown Organization K01:[facility] [place] - [address] [place] [id number] Laboratory Report Ordering Provider Test Date Status Agustín MENONMARLEN 07/19/2023 06:44:00 Final Observation Date Value Abnormality Reference (Units) Status Bacteria identified in Specimen by Culture 07/19/2023 06:44:00 No significant growth Final Test: Culture, Urine, Quanti tative
Specimen Source: Urine, Clean Catch
Specimen Type: Urine
Specimen Date: 07/19/2023 6:44 AM
Result Date: 07/20/2023 10:00 AM
Result Status: Final result
Resulting Lab: [facility]
[address]
Srikanth [facility]

CULTURE

No significant growth

null Performing Location [facility] [place] - [address] [facility] [address]
--- OUTSIDE RECORDS SUMMARY | 2023-11-04 13:39 | External Medical Summary ---
Author Name Unknown Address Unknown Organization K1F:LABORATORY [facility] - [place] [address] Laboratory Report Ordering Provider Test Date Status DANNA SHEPPRAD 07/22/2023 06:24:59 Final Observation Date Value Abnormality Reference (Units ) Status Troponin T 07/22/2023 06:24:59 8 <=14 (ng/ L) Final Performing Location LABORATORY [facility] - [address] [place] [address]
--- OUTSIDE RECORDS SUMMARY | 2023-11-04 13:39 | External Medical Summary ---
Author Name Unknown Address Unknown Organization K1F:LABORATORY [facility] - [address] [place] [address] Laboratory Report Ordering Provider Test Date Status DANNA SHEPPARD 07/22/2023 06:24:59 Final Observation Date Value Abnormality Reference (Units ) Status WBC, Total 07/22/2023 06:24:59 6.33 4.00-10.80 (K/uL) Final RBC 07/22/2023 06:24:59 4.20 3.85-5.15 (M/uL) Final Hemoglobin 07/22/2023 06:24:59 11.9 Below low normal 12.0-15.3 (g/dL) Final HCT 07/22/2023 06:24:59 36.8 36.0-45.2 (%) Final MCV 07/22/2023 06:24:59 87.6 81.5-97.5 (fL) Final MCH 07/22/2023 06:24:59 28.3 27.0-34.0 (pg) Final MCHC 07/22/2023 06:24:59 32.3 32.0-36.0 (g/dL) Final RDW 07/22/2023 06:24:59 15.3 11.5-15.5 (%) Final Platelets 07/22/2023 06:24:59 191 140-400 (K/uL) Final MPV 07/22/2023 06:24:59 10.5 6.6-11.1 (fL) Final Nucleated erythrocytes/100 leukocytes [Ratio] in Blood by Automated count 07/22/2023 06:24:59 0 <=0 (/100 WBCs) Final Performing Location LABORATORY [facility] - [address] [place] [address]
--- OUTSIDE RECORDS SUMMARY | 2023-11-04 13:39 | External Medical Summary | Summary of Care ---
Author Name Unknown Organization [facility] Address [address] [facility] R[place] [address] Phone [phone] Care Team Providers Care Interpretive Naturalist Name Role Phone Davonte Nation PA-C Primary Care Provider [phone] Encounter Details Date Type Department Care Team (Late st Contact Info) Description [facility] [address] [place] [phone] Davonte Nation PA-C [facility] [place] [address] Allergies Active Allergy Reactions Criticality Noted Date Comments Zolpidem Other (Please comment) 09/04/2016 hallucinations Oxycodone-Acetaminophe n Other (Please comment) 02/26/2007 hallusanates documented as of this encounter (statuses as of 07/13/2023) Medications Medication Sig Dispensed Refills Start Date [...] as of this encounter (statuses as of 07/13/2023) Active Problems Problem Noted Date Diagnosed Date [...] as of this encounter (statuses as of 07/13/2023) Resolved Problems Problem Noted Date Diagnosed Date [...] as of this encounter (statuses as of 07/13/2023) Immunizations Name Administration Dates Next Due Pneumococcal [...] Telephone Encounter - Christine Hazel RN - 07/13/2023 8:45 AM EST VM from pt on 07/12/23 at 4:45pm States she has a question about her visit yesterday and testing Requests a call back to her cell - [phone] Call to pt at number above, no answer, unable to leave message documented in this encounter Plan of Treatment Upcoming Encounters Date Type Department Care Team (Late st Contact Info) Description 01/08/2024 12:00 PM EDT Office Visit [facility] 21 [place] [phone] Davonte Nation PA-C 21 [place] [address] [address] Health Maintenance Due Date Last Done Comments [...] D LEVEL ONCE IN A LIFETIME-USE SMARTSET# [id number] Completed 01/02/2023, 12/02/2021, 11/08/2020, Additional history exists [...] Documents on File Type Date Recorded Patient Gasket Winder Expl anattarik POLST 10/06/2022 [place] [facility] FOR LIFE-SUSTAINING TREATMENT Latest Code Status [...] Directives occurred with: Not Discussed Care Teams Interpretive Naturalist Relationship Specialty Start Date End Date Davonte Nation PA-C 21 [place] [address] [address] PCP - General Physician Deputy Brand Inspector 04/22/22 documented as of this encounter
--- OUTSIDE RECORDS SUMMARY | 2023-11-04 13:39 | External Medical Summary ---
Author Name Unknown Address Unknown Organization K1F:LABORATORY [facility] - [address] [facility] [place] [address] Laboratory Report Ordering Provider Test Date Status GAMALIEL MENON 07/19/2023 06:44:00 Final Observation Date Value Abnormality Reference (Units ) Status BUN 07/19/2023 06:44:00 13 6-20 (mg/dL) Final Creatinine 07/19/2023 06:44:00 0.4 Below low normal 0.5-1.0 (mg/dL) Final Glomerular filtration rate/1.73 sq M.predicted [Volume Rate/Area] in Serum, Plasma or Blood by Creatinine-based formula (CKD-EPI) 07/19/2023 06:44:00 >90 >=60 (mL/min) Final eGFR is calculated based on the CKD-EPI 2020 equation SODIUM 07/19/2023 06:44:00 139 135-146 (m mol/L) Final Potassium 07/19/2023 06:44:00 4.0 3.5-5.1 (m mol/L) Final Cl 07/19/2023 06:44:00 104 98-107 (mm ol/L) Final CO2 07/19/2023 06:44:00 28 22-32 (mmo l/L) Final Anion gap 07/19/2023 06:44:00 7 7-15 (mmol /L) Final Glucose 07/19/2023 06:44:00 92 70-120 (mg /dL) Final Albumin 07/19/2023 06:44:00 3.5 Below low normal 3.8 -5.0 (g/dL) Final AST (Aspartate aminotransferase) 07/19/2023 06:44:00 19 10-35 (U/L) Fin al Alk Phos 07/19/2023 06:44:00 91 35-130 (U/ L) Final Bilirubin, Total 07/19/2023 06:44:00 0.4 <=1 .2 (mg/dL) Final Calcium 07/19/2023 06:44:00 8.7 8.4-10.2 ( mg/dL) Final Protein 07/19/2023 06:44:00 5.4 Below low normal 6.0 -8.3 (g/dL) Final ALT (Alanine aminotransferase) 07/19/2023 06:44:00 8 Below low normal 10-35 (U/L) Final Performing Location LAB[facility]ORY [facility] - [facility] [place] [address]
--- OUTSIDE RECORDS SUMMARY | 2023-11-04 13:39 | External Medical Summary | Summary of Care ---
Author Name Unknown Organization [facility] Address [address] [facility] [place] [address] Phone [phone] Care Team Providers Care Clinical Operations Manager Name Role Phone Davonte Nation PA-C Primary Care Provider [phone] Reason for Visit * Reason Onset Date Comments Order Request 10/15/2023 Dme Encounter Details Date Type Department Care Team (Late st Contact Info) Description 10/15/2023 Telephone [facility] [place] 21 [place] [phone] Davonte Nation PA-C [facility] [place] [address] Order Request (Dme ) Allergies Active Allergy Reactions Criticality Noted Date Comments Zolpidem Other (Please comment) 09/04/2016 hallucinations Oxycodone-Acetaminophe n Other (Please comment) 02/26/2007 hallusanates documented as of this encounter (statuses as of 10/15/2023) Medications Medication Sig Dispensed Refills Start Date [...] as of this encounter (statuses as of 10/15/2023) Active Problems Problem Noted Date Diagnosed Date [...] as of this encounter (statuses as of 10/15/2023) Resolved Problems Problem Noted Date Diagnosed Date [...] as of this encounter (statuses as of 10/15/2023) Immunizations Name Administration Dates Next Due Pneumococcal [...] Telephone Encounter - Ivette Shafer OSA - 10/15/2023 9:35 AM EDT Pt would like DME to be faxed to Maurice CARLIN FAX BACK OK documented in this encounter Plan of Treatment Upcoming Encounters Date Type Department Care Team (Late st Contact Info) Description 10/25/2023 12:00 PM EDT Home Visit Care Coordination and Integration [address] [place] [address] German Esquivel [facility] Health Art Specialist [address] [place] [address] 01/08/2024 12:00 PM EDT Office [facility] [address] [place] [address] Davonte Nation PA-C [address] [facility] [place] [phone] Health Maintenance Due Date Last Done Comments [...] D LEVEL ONCE IN A LIFETIME-USE SMARTSET# [id number] Completed 01/02/2023, 12/02/2021, 11/08/2020, Additional history exists [...] Documents on File Type Date Recorded Patient Suspender Maker Expl arian POL 10/06/2022 [place] [facility] FOR LIFE-SUSTAINING TREATMENT * No Code [...] Directives occurred with: Not Discussed Care Teams Clinical Operations Manager Relationship Specialty Start Date End Date Davonte Nation PA-C 21 [address] [phone] PCP - General Physician Art Specialist 04/22/22 documented as of this encounter
--- OUTSIDE RECORDS SUMMARY | 2023-11-04 13:39 | External Medical Summary | Summary of Care ---
Author Name Unknown Organization [facility] Address [address] [place] [address] Phone [phone] Care Team Providers Care Sewing Teacher Name Role Phone Chapis Davonte Sellers PA-C Primary Care Provider [phone] Encounter Details Date Type Department Care Team (Late st Contact Info) Description 08/29/2023 Documentation STAIR LUNG NODULE [address] [place], [place] [phone] Keith Tesfaye MD [address] [place], [place] [phone] Allergies Active Allergy Reactions Criticality Noted Date Comments Zolpidem Other (Please comment) 09/04/2016 hallucinations Oxycodone-Acetaminophe n Other (Please comment) 02/26/2007 hallusanates documented as of this encounter (statuses as of 08/29/2023) Medications Medication Sig Dispensed Refills Start Date [...] as of this encounter (statuses as of 08/29/2023) Active Problems Problem Noted Date Diagnosed Date [...] as of this encounter (statuses as of 08/29/2023) Resolved Problems Problem Noted Date Diagnosed Date [...] as of this encounter (statuses as of 08/29/2023) Immunizations Name Administration Dates Next Due Pneumococcal [...] No 09/17/2022 documented as of this encounter Progress Notes * Keith Tesfaye MD - 08/29/2023 2:49 PM EDT Lung Nodule Provider Review - Initial Clinical Summary: 87-year-old female never smoker who has no personal history of cancer, had a chest CT scan in the evaluation of trauma. Reviewed below Imaging Interpretation: CT - Chest dated 09/17/2022 Lung nodules: multiple Location: There are scattered pulmonary nodules and inflammatory infiltrates as well as atelectasisparticularly at the right base. The largest nodules include: a triangular nodule peripherally in the lateral aspect of the right apex (image number [id number]) measuring maximally 4.7 mm. A 5 mm ovoid nodule in the lateral right middle lobe (image number [id number]) There are no discrete pulmonary nodules in excess of 6 mm. Characteristics: solid Co-morbidity : no findings of emphysema or ILD Pulmonary Nodule Care Plan: No further follow-up needed - details belowac Details: Her risk of lung cancer is considered to be low, in the nodules all measure less than 6 mm so further follow-up is not planned. 2. Non-Pulmonary Nodule Incidental Finding: none 3. Patient contacted to review recommendations and next steps: No, letter to be sent by STAIR Coordinator (CT in >=12 months, no follow-up needed, or patient sent [facility] to [facility]) 4. Message forwarded to STAIR Pool. Time spent: 20 minutes Keith Tesfaye MD STAIR (System to Track Abnormalities of Importance Reliably) documented in this encounter Plan of Treatment Upcoming Encounters Date Type Department Care Team (Late st Contact Info) Description 01/08/2024 12:00 PM EDT Office Visit [address] [place] [address] Davonte Nation PA-C 21 RON[address] [place] [phone] Health Maintenance Due Date Last Done Comments [...] D LEVEL ONCE IN A LIFETIME-USE SMARTSET# [id number] Completed 01/02/2023, 12/02/2021, 11/08/2020, Additional history exists [...] Documents on File Type Date Recorded Patient Shirt Turner Expl anation POLST 10/06/2022 [place] [facility] FOR LIFE-SUSTAINING TREATMENT Latest Code [...] Directives occurred with: Not Discussed Care Teams Sewing Teacher Relationship Specialty Start Date End Date Davonte Nation PA-C 21 [address] [phone] PCP - General Physician Machine Repairer Maintenance 04/22/22 documented as of this encounter
--- OUTSIDE RECORDS SUMMARY | 2023-11-04 13:39 | External Medical Summary | Summary of Care ---
Author Name Unknown Organization [facility] Address [address] [facility] [place] [address] Phone [phone] Care Team Providers Care Sander Machine Name Role Phone Davonte Nation PA-C Primary Care Provider [phone] Reason for Visit * Reason Onset Date Comments Advice 07/13/202307/16 Encounter Details Date Type Department Care Team (Late st Contact Info) Description 07/13/2023 Telephone [facility] [place] [address] [place] [address] Davonte Nation PA-C [facility] [place] [address] Advice (07/16) Allergies Active Allergy Reactions Criticality Noted Date Comments Zolpidem Other (Please comment) 09/04/2016 hallucinations Oxycodone-Acetaminophe n Other (Please comment) 02/26/2007 hallusanates documented as of this encounter (statuses as of 07/17/2023) Medications Medication Sig Dispensed Refills Start Date [...] as of this encounter (statuses as of 07/17/2023) Active Problems Problem Noted Date Diagnosed Date [...] as of this encounter (statuses as of 07/17/2023) Resolved Problems Problem Noted Date Diagnosed Date [...] as of this encounter (statuses as of 07/17/2023) Immunizations Name Administration Dates Next Due Pneumococcal [...] encounter Miscellaneous Notes * Telephone Encounter - Lia Singh LPN - 07/17/2023 10:41 AM EST Left generic message on answering machine asking patient to return our call. To [phone]. The [phone] number has a recording that states number has been either changed or disconnected. Called [phone]. * Telephone Encounter - Lorelei Pérez CPhT - 07/17/2023 10:35 AM EST PATIENT calling to check status, patient requesting a call [phone] to speak with the nurses. Thank you, Lorelei Pérez, Computer Support Technician I [facility] Clinical [facility]acy Services (Formerly Telepharmacy) 07/17/2023, 10:36 AM * Telephone Encounter - Christine Hazel RN - 07/13/2023 8:45 AM EST VM from pt on 07/12/23 at 4:45pm States she has a question about her visit yesterday and testing Requests a call back to her cell - [phone] Call to pt at number above, no answer, unable to leave message documented in this encounter Plan of Treatment Upcoming Encounters Date Type Department Care Team (Late st Contact Info) Description 01/08/2024 12:00 PM EDT Office Visit [facility] [place] [address] [place] [phone] Davonte Nation PA-C 21 [place] [address] Health Maintenance Due Date Last Done Comments Albumin/Creatinine Ratio 09/03/1953 DTaP,Tdap,and Td Vaccines (1 - Tdap) 1956 Zoster Vaccines (1 of 2) 09/03/1987 Pneumococcal Vaccine: 65+ Years (1 of 1 - PCV) 2002 DXA Scan 07/11/2013 07/11/2011 *BISPHONATE OR OTHER ACCEPTABLE MEDICATION NEEDED FOR OSTEOPOROSIS (REFER TO SMARTSET #1146) 05/15/2014 Depression Screening 12/02/2022 12/02/2021 COVID-19 Vaccine ( - 2022-24 season) 2023 Influenza Vaccine (FLU shot) (#1) 2023 VITAMIN D LEVEL ONCE IN A LIFETIME-USE SMARTSET# 70426 Completed 01/02/2023, 12/02/2021, 11/08/2020, Additional history exists [...] Documents on File Type Date Recorded Patient Product Safety Specialist Expl anation POLST 10/06/[address] [place] [address] [facility] FOR LIFE-SUSTAINING TREATMENT Latest Code Status [...] Directives occurred with: Not Discussed Care Teams Sander Machine Relationship Specialty Start Date End Date Davonte Nation PA-C 21 [place] [address] PCP - General Physician Home Health Aid 04/22/22 documented as of this encounter
--- OUTSIDE RECORDS SUMMARY | 2023-11-04 13:39 | External Medical Summary | Summary of Care ---
Author Name Unknown Organization [facility] Address [address] [facility] [place] [address] Phone [phone] Care Team Providers Care Water Analyst Name Role Phone Davonte Nation PA-C Primary Care Provider [phone] Encounter Details Date Type Department Care Team (Late st Contact Info) Description [facility] [facility] [employer] [place] [address] Davonte Nation PA-C [facility] [place] [address] Allergies Active Allergy [...] encounter Miscellaneous Notes * Telephone Encounter - Lorelei Pérez CPhT - 07/17/2023 10:35 AM EST PATIENT calling to check status, patient requesting a call [phone] to speak with the nurses. Thank you, Lorelei Pérez, Allocations Clerk I Central[facility] Clinical Pharmacy Services (Formerly Telepharmacy) 07/17/2023, 10:36 AM * Telephone Encounter - Christine Hazel RN - 07/13/2023 8:45 AM EST VM from pt on 07/12/23 at 4:45pm States she has a question about her visit yesterday and testing Requests a call back to her cell - [phone] Call to pt at number above, no answer, unable to leave message documented in this encounter Plan of Treatment Upcoming Encounters Date Type Department Care Team (Late st Contact Info) Description 01/08/2024 12:00 PM EDT Office Visit [facility] [place] [address] [place] [address] [phone] Davonte Nation PA-C 21 [place] [address] Health Maintenance Due Date Last Done Comments Albumin/Creatinine Ratio 09[birth year]03/1953 DTaP,Tdap,and Td Vaccines (1 - Tdap) 1956 Zoster Vaccines (1 of 2) 09/03/1987 Pneumococcal Vaccine: 65+ Years (1 of 1 - PCV) 2002 DXA Scan 07/11/2013 07/11/2011 *BISPHONATE OR OTHER ACCEPTABLE MEDICATION NEEDED FOR OSTEOPOROSIS (REFER TO SMARTSET #1146) 05/15/2014 Depression Screening 12/02/2022 12/02/2021 COVID-19 Vaccine (24 season) 2023 Influenza Vaccine (FLU shot) (#1) 2023 VITAMIN D LEVEL ONCE IN A LIFETIME-USE SMARTSET# 61546 Completed 01/02/2023, 12/02/2021, 11/08/2020, Additional history exists [...] Documents on File Type Date Recorded Patient Community Engagement Representative Expl anation POLST 10/06/2022 [place] OR [facility] FOR LIFE-SUSTAINING TREATMENT Latest Code Status [...] Directives occurred with: Not Discussed Care Teams Water Analyst Relationship Specialty Start Date End Date Davonte Nation PA-C 21 [address] [address] [id number] PCP - General Physician Medical Insurance Coder 04/22/22 documented as of this encounter
--- OUTSIDE RECORDS SUMMARY | 2023-11-04 13:39 | External Medical Summary ---
Author Name Unknown Address Unknown Organization K1F:LABORATORY [facility] - [address] [place] [address] Laboratory Report Ordering Provider Test Date Status GAMALIEL MENON 07/19/2023 06:44:00 Final Observation Date Value Abnormality Reference (Units ) Status TSH 07/19/2023 06:44:00 1.48 0.27-4.20 (uIU/mL) Final Performing Location LABORATORY [facility] - [address] [place] [address]
--- OUTSIDE RECORDS SUMMARY | 2023-11-04 13:40 | External Medical Summary | Summary of Care ---
Author Name Unknown Organization [facility] Address [address] [facility] [place] [address] Phone [phone] Care Team Providers Care Underground Miner Name Role Phone Lynsey Alston PA-C Primary Care Provider [phone] Reason for Visit * Reason Onset Date Comments Med Request 06/26/2023 Encounter Details Date Type Department Care Team (Late st Contact Info) Description 06/26/2023 Telephone [facility] [place] [address] [place] [phone] Lynsey Alston PA-C [facility] [place] [address] Med Request Allergies Active Allergy Reactions Criticality Noted Date Comments Zolpidem Other (Please comment) 09/04/2016 hallucinations Oxycodone-Acetaminophe n Other (Please comment) 02/26/2007 hallusanates documented as of this encounter (statuses as of 06/26/2023) Medications Medication Sig Dispensed Refills Start Date [...] 0 Active ALPRAZolam 0.5 MG Oral Tablet (xaNAX)Indication s:Anxiety Take 1 Tablet by mouth in the morning. BRAND NAME. 30 Tablet 5 06/26/2023 Active ALPRAZolam 0.25 MG Oral Tablet (Xanax)Indication s:Anxiety Take 1 Tablet by mouth 3 times a day as needed for Anxiety. BRAND NECESSARY 90 Tablet 5 06/26/2023 Active ALPRAZolam 0.5 MG Oral Tablet Take 1 Tablet by mouth in the morning. BRAND NAME. 0 06/26/2023 Discontinued (Refill) documented as of this encounter (statuses as of 06/26/2023) Active Problems Problem Noted Date Diagnosed Date [...] as of this encounter (statuses as of 06/26/2023) Resolved Problems Problem Noted Date Diagnosed Date Resolved Date Contusion of right orbital tissues 09/17/2022 01/02/2023 Dementia 09/17/2022 01/02/2023 Fall 09/17/2022 01/02/2023 Syncope and collapse 11/06/2018 06/27/2 019 Hyponatremia 11/06/2018 11/07/2018 Osteoporosis 12/02/2013 05/22/2019 Myalgia and myositis, unspecified 12/02/2013 04/20/2021 ADVANCE DIRECTIVE INFORMATION 09/17/2006 05/22/2019 Overview: No, Advance Directive brochure offered , patient declined. 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 Unclear if further evaluation is needed. documented as of this encounter (statuses as of 06/26/2023) Immunizations Name Administration Dates Next Due Pneumococcal [...] Telephone Encounter - Lynsey Alston PA-C - 06/26/2023 11:39 AM EST Please call in the authorized prescription to the patient's pharmacy then close the encounter. Signed Prescriptions: Disp Refills ALPRAZolam 0.5 MG Oral Tablet (xaNAX) 30 Tab*5 Sig: Take 1 Tablet by mouth in the morning. BRAND NAME. Authorizing Provider: LYNSEY ALSTON ALPRAZolam 0.25 MG Oral Tablet (Xanax) 90 Tab*5 Sig: Take 1 Tablet by mouth 3 times a day as needed for Anxiety. BRAND NECESSARY Authorizing Provider: LYNSEY ALSTON Andrew E Oja, PA-C E-prescribed * Telephone Encounter - Maggie Peter, traffic circuit engineer - 06/26/2023 11:30 AM EST Patient is almost out of med Nurse calling requesting the following medication below that is listed as "Historical". The following information was provided: Medication Name: Alprazolam Strength: 0.25 Directions: Take 1 Tablet by mouth 2 times a day. At 1:00pm and 7:00pm BRAND NAME Preferred Quantity: 60 Previous Prescriber: Dr Alston Preferred Pharmacy: [facility] [address] Medication Name: Alprazolam Strength: 0.5 mg Directions: Take 1 Tablet by mouth in the morning. BRAND NAME Preferred Quantity: 30 Previous Prescriber: Dr Alston Preferred Pharmacy: [facility] [address] Please review and approve if appropriate. Maggie Mcgowan Social Work Professor II [facility] Clinical Pharmacy Services [phone] [facility] [place] [address] 06/26/2023 11:32 AM documented in this encounter Plan of Treatment Upcoming Encounters Date Type Department Care Team (Late st Contact Info) Description 07/09/2023 12:20 PM EST Office Visit [facility] [place] [address] [place] [address] [phone] Lynsey Alston PA-C 21 [place] [address] [address] Health Maintenance Due Date Last Done Comments COVID-19 Vaccine (#1) 03/04/1936 Albumin/Creatinine Ratio 09/03/1953 DTaP,Tdap,and Td Vaccines (1 - Tdap) 1956 Zoster Vaccines (1 of 2) 09/03/1987 Pneumococcal Vaccine: 65+ Years (1 - PCV) 2002 DXA Scan 07/11/2013 07/11/2011 *BISPHONATE OR OTHER ACCEPTABLE MEDICATION NEEDED FOR OSTEOPOROSIS (REFER TO SMARTSET #1146) 05/15/2014 Depression Screening 12/02/2022 12/02/2021 Influenza Vaccine (FLU shot) (#1) 2023 VITAMIN D LEVEL ONCE IN A LIFETIME-USE SMARTSET# 83455 Completed 01/02/2023, 12/02/2021, 11/08/2020, Additional history exists [...] as of this encounter Visit Diagnoses Diagnosis Anxiety- Primary Anxiety state, unspecified documented in this encounter Advance Directives Documents on File Type Date Recorded 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
--- OUTSIDE RECORDS SUMMARY | 2023-11-04 13:40 | External Medical Summary | Summary of Care ---
Author Name Unknown Organization [facility] Address [address] [facility] [address] Phone [phone] Care Team Providers Care Wafer Batter Mixer Name Role Phone Lynsey Alston PA-C Primary Care Provider [phone] Reason for Visit * Reason Onset Date Comments FYI 07/02/2023 Encounter Details Date Type Department Care Team (Late st Contact Info) Description [facility]/02[facility]23 [facility] [address] [place] [phone] Lynsey Alston PA-C [facility] [place] [address] FYI Allergies Active Allergy Reactions Criticality Noted Date Comments Zolpidem Other (Please comment) 09/04/2016 hallucinations Oxycodone-Acetaminophe n Other (Please comment) 02/26/2007 hallusanates documented as of this encounter (statuses as of 07/02/2023) Medications Medication Sig Dispensed Refills Start Date [...] 0 Active ALPRAZolam 0.5 MG Oral Tablet (xaNAX)Indications: Anxiety Take 1 Tablet by mouth in the morning. BRAND NAME. 30 Tablet 5 06/26/2023 Active ALPRAZolam 0.25 MG Oral Tablet (Xanax)Indications: Anxiety Take 1 Tablet by mouth 3 times a day as needed for Anxiety. BRAND NECESSARY 90 Tablet 5 06/26/2023 Active ALPRAZolam 0.25 MG Oral Tablet (xaNAX) Take one tablet at 12 PM and take one tablet at 6 PM. Brand Necessary 60 Tablet 2 06/27/2023 Active Amoxicillin 875 MG Oral TabletIndications:A cute cystitis without hematuria Take 1 Tablet by mouth in the morning and 1 Tablet before bedtime. Do all this for 7 days. 14 Tablet 0 07/02/2023 07/09/2023 Active documented as of this encounter (statuses as of 07/02/2023) Active Problems Problem Noted Date Diagnosed Date [...] as of this encounter (statuses as of 07/02/2023) Resolved Problems Problem Noted Date Diagnosed Date [...] as of this encounter (statuses as of 07/02/2023) Immunizations Name Administration Dates Next Due Pneumococcal [...] encounter Miscellaneous Notes * Telephone Encounter - Laya Falk MED ASSIST - 07/02/2023 3:45 PM EST Annalise aware * Telephone Encounter - Lynsey Alston PA-C - 07/02/2023 3:05 PM EST Results for orders placed or performed in visit on 06/28/23 URINALYSIS, REFLEX TO MICROSCOPIC Result Value Ref Range Color, Urine Yellow Light Yellow, Yellow, Dark Yellow Clarity, Urine Slightly Cloudy (A) Clear Glucose, Urine Negative Negative mg/dL Bilirubin, Urine Negative Negative Ketone, Urine 15 (A) Negative mg/dL Specific [place], Urine 1.012 1.003 - 1.030 Blood, Urine Small (A) Negative pH, Urine 8.0 (H) 5.0 - 7.5 Units Protein, Urine Negative Negative mg/dL Urobilinogen, Urine 1.0 0.2, 1.0 mg/dL Nitrite, Urine Positive (A) Negative Esterase, Urine Small (A) Negative CULTURE, URINE, QUANTITATIVE Specimen: Urine, Clean Catch Result Value Ref Range Culture Growth >100,000 colonies/mL Streptococcus anginosus group (A) MICROSCOPIC EXAM, URINE Result Value Ref Range RBC, Urine 3-5 (A) 0 - 2 /HPF WBC, Urine 6-9 (A) 0 - 2 /HPF Bacteria, Urine 151-200 (A) 0 - 25 /HPF Triple Phosphate Crystal, Urine 5-9 (A) None /HPF Please call in the authorized prescription to the patient's pharmacy then close the encounter. Signed Prescriptions: Disp Refills Amoxicillin 875 MG Oral Tablet 14 Tab*0 Sig: Take 1 Tablet by mouth in the morning and 1 Tablet before bedtime. Do all this for 7 days. Authorizing Provider: LYNSEY ALSTON Andrew E Oja, PA-C E-prescribed * Telephone Encounter - Ivette Aguirre OSA - 07/02/2023 1:09 PM EST Annalise from [facility] is calling to confirm that the Dr received the results of UA that was ordered. documented in this encounter Plan of Treatment Upcoming Encounters Date Type Department Care Team (Late st Contact Info) Description 07/09/2023 12:20 PM EST Office Visit [facility] [address] [place] [place] [phone] Lynsey Alston PA-C 21 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
--- OUTSIDE RECORDS SUMMARY | 2023-11-04 13:40 | External Medical Summary ---
Author Name Unknown Address Unknown Organization K1F:LABORATORY [facility] - [address] [address] Laboratory Report Ordering Provider Test Date Status GAMALIEL MENON 06/28/2023 04:30:00 Final Observation Date Value Abnormality Reference (Units ) Status RBC, Urine 06/28/2023 04:30:00 3-5 Abnormal 0-2 (/HPF) Final WBC, Urine 06/28/2023 04:30:00 6-9 Abnormal 0-2 (/HPF) Final Bacteria [#/area] in Urine sediment by Microscopy high power field 06/28/2023 04:30:00 151-200 Abnormal 0-25 (/HPF) Final Triple phosphate crystals [#/area] in Urine sediment by Microscopy high power field 06/28/2023 04:30:00 5-9 Abnormal None (/HPF) Final Performing Location LAB[facility]ATORY [facility] - [address] [address]
--- OUTSIDE RECORDS SUMMARY | 2023-11-04 13:40 | External Medical Summary | Summary of Care ---
Author Name Unknown Organization [facility] Address [address] [facility] [place] [address] Phone [phone] Care Team Providers Care Manager Of Information Name Role Phone Lynsey Alston PA-C Primary Care Provider [phone] Reason for Visit * Reason Onset Date Comments Med Request 06/26/202306/27 Encounter Details Date Type Department Care Team (Late st Contact Info) Description 06/26/[address] [facility] [address] [place] [address] [phone] Lynsey Alston PA-C [facility] [place] [address] Med Request (06/27) Allergies Active Allergy Reactions Criticality Noted Date Comments Zolpidem Other (Please comment) 09/04/2016 hallucinations Oxycodone-Acetaminophe n Other (Please comment) 02/26/2007 hallusanates documented as of this encounter (statuses as of 06/27/2023) Medications Medication Sig Dispensed Refills Start Date [...] morning. BRAND NAME. 0 06/26/2023 Discontinued (Refill) ALPRAZolam 0.25 MG Oral Tablet (xaNAX) Take one tablet at 12 PM and take one tablet at 6 PM 60 Tablet 2 06/27/2023 06/27/2023 Discontinued (Refill) documented as of this encounter (statuses as of 06/27/2023) Active Problems Problem Noted Date Diagnosed Date [...] as of this encounter (statuses as of 06/27/2023) Resolved Problems Problem Noted Date Diagnosed Date [...] as of this encounter (statuses as of 06/27/2023) Immunizations Name Administration Dates Next Due Pneumococcal [...] as of this encounter Miscellaneous Notes * Addendum Note - Lynsey Alston PA-C - 06/27/2023 3:58 PM ESTAddended by: LYNSEY ALSTON on: 06/27/2023 03:58 PM Modules accepted: Orders * Telephone Encounter - Lynsey Alston PA-C - 06/27/2023 3:57 PM EST Please call in the authorized prescription to the patient's pharmacy then close the encounter. Signed Prescriptions: y as needed for Anxiety. BRAND NECESSARY Authorizing Provider: LYNSEY ALSTON ALPRAZolam 0.25 MG Oral Tablet (xaNAX) 60 Tab*2 Sig: Take one tablet at 12 PM and take one tablet at 6 PM Authorizing Provider: LYNSEY ALSTON Andrew E Oja, PA-C * Addendum Note - David Merchant LPN - 06/27/2023 3:15 PM ESTAddended by: DAVID MERCHANT on: 06/27/2023 03:15 PM Modules accepted: Orders * Telephone Encounter - David Merchant LPN - 06/27/2023 3:15 PM EST Pended, please review for accuracy. * Telephone Encounter - Lynsey Alston PA-C - 06/27/2023 2:25 PM EST Order what is needed. I will sign it. * Telephone Encounter - Meghna Jensen CPhT - 06/27/2023 12:30 PM EST Tandem Mill Operator calling in regarding ALPRAZolam 0.25 MG Oral Tablet (Xanax) . They said they have the wrong order. Rx should state take 1 tablet my mouth twice daily for anxiety and it needs to include that pt takes it at 12:00 pm and 6:00 pm. Please send to [facility] [address] Please advise. Thank you, Meghna Jensen CPht Compounding Scaler II [facility] ([facility]) (formerly Telepharmacy) 06/27/2023, 12:31 PM * Telephone Encounter - Lynsey Alston PA-C [...] PA-C E-prescribed * Telephone Encounter - Maggie Peter PHARM Tech - 06/26/2023 11:30 AM EST Patient is almost out of med Nurse calling requesting the following medication below that is listed as "Historical". The following information was provided: Medication Name: Alprazolam Strength: 0.25 Directions: Take 1 Tablet by mouth 2 times a day. At 1:00pm and 7:00pm BRAND NAME Preferred Quantity: 60 Previous Prescriber: Dr Alston [facility] Medication Name: Alprazolam Strength: 0.5 mg Directions: Take 1 Tablet by mouth in the morning. BRAND NAME Preferred Quantity: 30 Previous Prescriber: Dr Alston Preferred Pharmacy: [facility] [address] Please review and approve if appropriate. Maggie Mcgowan Compounding Scaler II [facility] Clinical Pharmacy Services [address] [place] [address] 06/26/2023 11:32 AM documented in this encounter Plan of Treatment Upcoming Encounters Date Type Department Care Team (Late st Contact Info) Description 06/28/2023 3:00 PM EST Office Visit [facility] [place] [address] [phone] Lynsey Alston PA-C [address] [address] 07/09/2023 12:20 PM EST [facility] [address] [phone] Lynsey Alston PA-C [address] [address] Health Maintenance [...] D LEVEL ONCE IN A LIFETIME-USE SMARTSET# [id number] Completed 01/02/2023, 12/02/2021, 11/08/2020, Additional history exists [...] Documents on File Type Date Recorded Patient Yarn Spooler Expl anation POLST 10/06/2022 [place] OR [facility] FOR LIFE-SUSTAINING TREATMENT Latest Code [...] Directives occurred with: Not Discussed Care Teams Manager Of Information Relationship Specialty Start Date End Date Lynsey Alston PA-C [address] [address] PCP - General Physician Business Consult 04/22/22 documented as of this encounter
--- OUTSIDE RECORDS SUMMARY | 2023-11-04 13:40 | External Medical Summary | Summary of Care ---
Author Name Unknown Organization [facility] Address [address] [facility] [place] [address] Phone [phone] Care Team Providers Care Molybdenum Steamer Operator Name Role Phone Davonte Nation PA-C Primary Care Provider [phone] Reason for Visit * Reason Comments Follow Up Encounter Details Date Type Department Care Team (Late st Contact Info) Description 07/09/2023 12:20 PM EST Office Visit [facility] 21 [place] [phone] Davonte Nation PA-C [address] [place] [address] Pure hypercholesterolemia* ; Malignant neoplasm of endocrine pancreas (HCC); Age-related osteoporosis without current pathological fracture; Elevated blood pressure, situational; Generalized osteoarthrosis, involving multiple sites; IPMN (intraductal papillary mucinous neoplasm); B12 deficiency; Vitamin D deficiency; Acute cystitis without hematuria Allergies Active Allergy Reactions Criticality Noted Date Comments Zolpidem Other (Please comment) 09/04/2016 hallucinations Oxycodone-Acetaminophe n Other (Please comment) 02/26/2007 hallusanates documented as of this encounter (statuses as of 07/09/2023) Medications Medication Sig Dispensed Refills Start Date [...] Necessary 60 Tablet 2 06/27/2023 Active ALPRAZolam 0.25 MG Oral Tablet (Xanax)Indication s:Anxiety Take 1 Tablet by mouth 3 times a day as needed for Anxiety. BRAND NECESSARY 90 Tablet 5 06/26/2023 07/09/2023 Discontinued (Medication List Clean Up) Amoxicillin 875 MG Oral TabletIndications :Acute cystitis without hematuria Take 1 Tablet by mouth in the morning and 1 Tablet before bedtime. Do all this for 7 days. 14 Tablet 0 07/02/2023 07/09/2023 Discontinued (Medication List Clean Up) documented as of this encounter (statuses as of 07/09/2023) Active Problems Problem Noted Date Diagnosed Date [...] as of this encounter (statuses as of 07/09/2023) Resolved Problems Problem Noted Date Diagnosed Date [...] as of this encounter (statuses as of 07/09/2023) Immunizations Name Administration Dates Next Due Pneumococcal [...] Sign Reading Time Taken Comments Blood Pressure 100/70 07/09/2023 1:07 PM EST Pulse 70 07/09/2023 1:07 PM EST Temperature 36.8 C (98.3 F) 07/09/2023 1:07 PM ES T Respiratory Rate 14 07/09/2023 1:07 PM EST Oxygen Saturation 95% 07/09/2023 1:07 PM EST Inhaled Oxygen Concentration - - Weight 32.1 kg (70 lb 11.2 oz) 07/09/2023 1:07 P M EST Height - - Body Mass Index 15.3 09/17/2022 6:28 PM EDT documented in this encounter Functional Status Functional [...] as of this encounter Progress Notes * Davonte Nation PA-C - 07/09/2023 1:29 PM EST Subjective: Ailyn Link is a 87 year old female. Chief Complaint Patient presents with Follow Up HPI: Here for a F/U exam. No refills needed. No recent lab testing done. Not following a diet. Hardto stay active. No changes to the skin. No suicidal or homicidal ideations. History of pancreatic cancer-stable. History of osteoporosis-not on a medication. History of situational high blood pressures- stable. History of osteoarthrosis-stable. History of intraductal mucinous neoplasm-being followed. History of increased lipids-stable. History of low B12- on B12. History of low vitamin d-on vitamind. History of uti-did not complete the amoxicillin-will repeat the urine culture. 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 At 1:00pm and 7:00pm BRAND NAME Zinc 50 MG Oral Tablet Take 1 Tablet by mouth every night at bedtime. Acetaminophen 325 MG Oral Tablet (Tylenol) Take 2 Tablets by mouth every 6 hours as needed for Fever (Temp Greater than ) (100.4). Not to exceed 3g/24hrs Ibuprofen 600 MG Oral Tablet (Motrin) Take 1 Tablet by mouth every 6 hours as needed (for moderate pain (4-6)). Ondansetron HCl 4 MG Oral Tablet (Zofran) Take 1 Tablet by mouth every 6 hours as needed for Nausea. Ensure Original Oral Liquid Take by mouth. As needed for dietary supplement. Do not exceed 2 bottles per day. ALPRAZolam 0.5 MG Oral Tablet (xaNAX) Take 1 Tablet by mouth in the morning. BRAND NAME. 30 Tablet 5 ALPRAZolam 0.25 MG Oral Tablet (xaNAX) Take one tablet at 12 PM and take one tablet at 6 PM. Brand Necessary 60 Tablet 2 Vitamin B-6 50 MG Oral Tablet Take 1 Tablet by mouth in the morning. No current facility-administered medications for this visit. Past Medical History: Diagnosis Date cystic neoplasm [...] performed by Moises Matthews MD at OR [facility] TOTAL HIP REPLACEMENT & PROSTHESIS 1988 -right; 1994 right and left TOTAL HYSTERECTOMY with BSO Review of patient's allergies indicates: Allergen Reactions Ambien [Zolpidem] Other (Please comment) hallucinations Percocet [Oxycodone-Acetaminophen] Other (Please comment) hallusanates No family history on file. Family Status Relation Status Mo Fa Bro Alive Thee Alive Son Alive Son Alive Social History Tobacco Use Smoking status: Never Smokeless tobacco: Never Substance Use Topics Alcohol use: No Vaping/E-Cigarette Use Vaping/E-Cigarette Use Never User Vaping/E-Cigarette Substances Vaping/E-Cigarette Devices Review of Systems: Constitutional ROS: No fevers, sweats, or chills Eye ROS: No recent significant change in vision, No eye pain, redness, discharge, No diplopia, No h/o cataracts, and No h/o glaucoma Ear ROS: No ear pain, No drainage, No tinnitus or vertigo, and No recent change in hearing Nose ROS: No history of frequent colds or sinusitis, No nasal stuffiness, No history of Hay Fever, and No significant epistaxis Mouth/Throat ROS: No bleeding gums, No thrush, or No sore throat Neck ROS: No lumps or masses, No swollen glands, No recent swelling in thyroid area, No significantpain in neck, and No h/o goiter or thyroid disease Pulmonary ROS: No cough, sputum, or hemoptysis, No wheezing, No rales, No shortness of breath, and No recent change in breathing Cardiovascular ROS: No chest pain, No shortness of breath, No dyspnea on exertion, No orthopnea, Noparoxysmal nocturnal dyspnea, No edema, No palpitations, and No syncope Gastrointestinal ROS: No hematemesis, No blood in stools or black tarry stools, and No dysphagia Genito-Urinary Female ROS: No STDs, No dysuria, No frequency, No incontinence, and No urgency Hematologic/Lymphatic ROS: No coagulation disorder, No anemia, No abnormal bleeding, No chills, No bruising, No HIV risk factors, No night sweats, No swollen nodes, and No weight loss Skin/Integumentary ROS: No edema and No itching Neurologic ROS: No headaches and No seizures Endocrine ROS: No heat intolerance, No cold intolerance, No thyroid trouble, and No excessive thirst or urination Psychiatric ROS: No psychosis OBJECTIVE: BP 100/70 | Pulse 70 | Temp 36.8 C (98.3 F) (Tympanic) | Resp 14 | Wt 32.1 kg (70 lb 11.2 oz) |SpO2 95% | BMI 15.30 kg/m | BSA 1.14 m PHYSICAL EXAM: General: alert, no distress, and malnourished Affect: Dressed appropriately. Makes eye contact when speaking. Head: Normocephalic, No masses, lesions, tenderness or abnormalities Eye Exam: PERRLA, extraocular movements intact, conjunctiva are pink and non- injected, sclera clear Ears: External ears normal, Canals clear, TM's Normal Nose: no mucosal erythema, no mucosal edema, no purulent discharge Oropharynx: no exudate, no erythema, lips, buccal mucosa, and tongue normal, and mucous membranes are moist Neck: supple, no adenopathy, no bruits, thyroid normal size, non-tender, without nodularity Heart: regular rate & rhythm, no murmur, and no gallops Lungs: chest symmetric with normal AP diameter, no chest deformities noted, no chest wall tenderness, lungs clear to auscultation Pulses: carotid=2/4 w/o bruits Abdomen: abdomen soft, normal bowel sounds, and no masses or organomegaly Back: back symmetric, no curvature, no costovertebral angle tenderness Extremities: less than 2 second capillary refill Neuro Exam: alert & oriented x 3 with fluent speech, reflexes normal and symmetric, in a wheelchair Skin: skin color, texture, turgor are normal, no rashes or significant lesions ASSESSMENT: E78.00 Pure hypercholesterolemia (primary encounter diagnosis) C25.4 Malignant neoplasm of endocrine pancreas (HCC) M81.0 Age-related osteoporosis without current pathological fracture R03.0 Elevated blood pressure, situational M15.9 Generalized osteoarthrosis, involving multiple sites D49.0 IPMN (intraductal papillary mucinous neoplasm) E53.8 B12 deficiency E55.9 Vitamin D deficiency N30.00 Acute cystitis without hematuria PLAN: Plan Comprehensive Metabolic Panel CBC with WBC Differential TSH with Free T4 if indicated Lipid Panel with Direct LDL if TG is High Vitamin B12 25-Hydroxy Vitamin D Culture, Urine, Quantitative Follow up: Follow Up: Return in about 6 months (around 01/07/2024) for follow-up. | For: follow-up I spent a total of 40-54 minutes (exact time 45 mins) on the date of service in preparation, delivery, and documentation of the care provided to Ailyn Link excluding any time spent in the performance of separately billed services. Davonte Nation PA-C 07/09/2023 1:35 PM documented in this encounter Plan of Treatment Upcoming Encounters Date Type Department Care Team (Late st Contact Info) Description 01/08/2024 12:00 PM EDT Office Visit [facility] [address] [place] [address] [phone] Davonte Nation PA-C [facility] [place] [id number] Scheduled Orders Name Type Priority Associated Diagnoses Orde r Schedule COMPREHENSIVE METABOLIC PANEL Lab Routine Malignant neoplasm of endocrine pancreas (HCC) Age-related osteoporosis without current pathological fracture Elevated blood pressure, situational Generalized osteoarthrosis, involving multiple sites Pure hypercholesterolemia Vitamin D deficiency Expected: 07/09/2023 (Approximate), Expires: 07/08/2024 CBC WITH WBC DIFFERENTIAL Lab Routine Elevated blood pressure, situational Generalized osteoarthrosis, involving multiple sites Pure hypercholesterolemia B12 deficiency Expected: 07/09/2023 (Approximate), Expires: 07/09/2024 TSH WITH FREE T4 IF INDICATED Lab Routine Elevated blood pressure, situational Generalized osteoarthrosis, involving multiple sites Pure hypercholesterolemia Expected: 07/09/2023 (Approximate), Expires: 07/08/2024 LIPID PANEL WITH DIRECT LDL IF TG IS HIGH Lab Routine Pure hypercholesterolemia Expected: 07/09/2023, Expires: 07/09/2024 VITAMIN B12 Lab Routine B12 deficiency Expected: 07/09/2023 (Approximate), Expires: 07/08/2024 25-HYDROXY VITAMIN D Lab Routine Age-related osteoporosis without current pathological fracture Vitamin D deficiency Expected: 07/09/2023 (Approximate), Expires: 07/08/2024 CULTURE, URINE, QUANTITATIVE Lab Routine Acute cystitis without hematuria Expected: 07/09/2023, Expires: 07/09/2024 Health Maintenance Due Date Last Done Comments [...] 2022- season) 2023 Influenza Vaccine (FLU shot) (#1) 2023 VITAMIN D LEVEL ONCE IN A LIFETIME-USE SMARTSET# [id number] Completed 01/02/2023, 12/02/2021, 11/08/2020, Additional history exists [...] as of this encounter Visit Diagnoses Diagnosis Pure hypercholesterolemia- Primary Malignant neoplasm of endocrine pancreas (HCC) Malignant neoplasm of islets of Langerhans Age-related osteoporosis without current pathological fracture Senile osteoporosis Elevated blood pressure, situational Elevated blood pressure reading without diagnosis of hypertension Generalized osteoarthrosis, involving multiple sites IPMN (intraductal papillary mucinous neoplasm) Neoplasm of unspecified nature of digestive system B12 deficiency Other B-complex deficiencies Vitamin D deficiency Unspecified vitamin D deficiency Acute cystitis without hematuria Acute cystitis documented in this encounter Advance Directives Documents on File Type Date Recorded Patient Hip Hop Performers Expl anation POLST 10/06/2022 [place] DERS [...] Directives occurred with: Not Discussed Care Teams Molybdenum Steamer Operator Relationship Specialty Start Date End Date Davonte Nation PA-C 21 [place] [id number] PCP - General Physician Bar Turner 04/22/22 documented as of this encounter"
--- OUTSIDE RECORDS SUMMARY | 2023-11-04 13:40 | External Medical Summary | Summary of Care ---
Author Name Unknown Organization [facility] Address [address] [facility] [place] [address] Phone [phone] Care Team Providers Care Cruller Maker Machine Name Role Phone Lynsey Alston PA-C Primary Care Provider [phone] Reason for Visit * Reason Onset Date Comments Med Request 06/26/202306/27 Encounter Details Date Type Department Care Team (Late st Contact Info) Description 06/26/2023 Telephone [facility] 21 [place] [phone] Lynsey Alston PA-C [facility] [place] [address] Med Request (06/27) Allergies Active Allergy [...] Jensen CPhT - 06/27/2023 12:30 PM EST Field Administrative Assistant calling in regarding ALPRAZolam 0.25 MG Oral Tablet (Xanax) . They said they have the wrong order. Rx should state take 1 tablet my mouth twice daily for anxiety and it needs to include that pt takes it at 12:00 pm and 6:00 pm. Please send to [facility]- [place] Please advise. Thank you, Meghna Jensen CPht Silo Man II [facility] ([facility]) (formerly [...] 60 Previous Prescriber: Dr Alston Preferred Pharmacy: [facility] [address] Medication Name: Alprazolam Strength: 0.5 mg Directions: Take 1 Tablet by mouth in the morning. BRAND NAME Preferred Quantity: 30 Previous Prescriber: Dr Alston Preferred Pharmacy: [facility] [address] Please review and approve if appropriate. Maggie Mcgowan Silo Man II [facility] Clinical Pharmacy Services [address] [address] 06/26/2023 11:32 AM documented in this encounter Plan of Treatment Upcoming Encounters Date Type Department Care Team (Late st Contact Info) Description 06/28/2023 3:00 PM EST Office Visit [facility] [place] 21 [place] [phone] Lynsey Alston PA-C 21 [place] [address] 07/09/2023 12:20 PM EST Office Visit [facility] Blanca Rudolph 21 [place] [phone] Lynsey Alston PA-C [...] D LEVEL ONCE IN A LIFETIME-USE SMARTSET# [id number] Completed 01/02/2023, 12/02/2021, 11/08/2020, Additional history exists [...] Documents on File Type Date Recorded Patient Equipment Maintenance Technician Expl anation POLST 10/06/2022 [place] [facility] FOR LIFE-SUSTAINING TREATMENT Latest Code [...] Directives occurred with: Not Discussed Care Teams Cruller Maker Machine Relationship Specialty Start Date End Date Lynsey Alston PA-C 21 [place] [address] PCP - General Physician Power Plant Superintendent 04/22/22 documented as of this encounter
--- OUTSIDE RECORDS SUMMARY | 2023-11-04 13:40 | External Medical Summary | Summary of Care ---
Author Name Unknown Organization [facility] Address [address] [facility] [place] [address] Phone [phone] Care Team Providers Care Metal Cut Off Saw Operator Name Role Phone Lynsey Alston PA-C Primary Care Provider [phone] Reason for Visit * Reason Onset Date Comments Med Request 06/26/2023 Encounter Details Date Type Department Care Team (Late st Contact Info) Description 06/26/2023 Telephone [facility] [place] [address] [phone] Lynsey Alston PA-C [facility] [place] [address] Med Request Allergies Active [...] encounter Miscellaneous Notes * Telephone Encounter - Meghna Jensen CPhT - 06/27/2023 12:30 PM EST Safety Glass Installer calling in regarding ALPRAZolam 0.25 MG Oral Tablet (Xanax) . They said they have the wrong order. Rx should state take 1 tablet my mouth twice daily for anxiety and it needs to include that pt takes it at 12:00 pm and 6:00 pm. Please send to [facility]-[address]- [place] Please advise. Thank you, Meghna Jensen CPht Precision Agriculture Specialist II [facility] ([facility]) (formerly [...] E-prescribed * Telephone Encounter - Maggie Peter, clinical technologist - 06/26/2023 11:30 AM EST Patient is almost out of med Nurse calling requesting the following medication below that is listed as "Historical". The following information was provided: Medication Name: Alprazolam Strength: 0.25 Directions: Take 1 Tablet by mouth 2 times a day. At 1:00pm and 7:00pm BRAND NAME Preferred Quantity: 60 Previous Prescriber: Dr Alston Preferred Pharmacy: [facility] Medication Name: Alprazolam Strength: 0.5 mg Directions: Take 1 Tablet by mouth in the morning. BRAND NAME Preferred Quantity: 30 Previous Prescriber: Dr Alston Preferred Pharmacy: [facility] [address] Please review and approve if appropriate. Maggie Mcgowan Precision Agriculture Specialist II [facility] Clinical Pharmacy Services [address] [place] [address] 06/26/2023 11:32 AM documented in this encounter Plan of Treatment Upcoming Encounters Date Type Department Care Team (Late st Contact Info) Description 06/28/2023 3:00 PM EST [facility] [place] [phone] Lynsey Alston PA-C 21 [place] [address] 07/09/2023 12:20 PM EST [facility] [address] [place] [phone] Lynsey Alston PA-C 21 [place] [address] [phone] Health Maintenance Due Date Last Done Comments [...] D LEVEL ONCE IN A LIFETIME-USE SMARTSET# [id number] Completed 01/02/2023, 12/02/2021, 11/08/2020, Additional history exists [...] Documents on File Type Date Recorded Patient Cream Separator Operator Expl anation POLST 10/06/2022 [place] OR [facility] FOR LIFE-SUSTAINING TREATMENT Latest Code [...] occurred with: Not Discussed Care Teams Metal Cut Off Saw Operator Relationship Specialty Start Date End Date Lynsey Alston PA-C 21 [place] [address] PCP - General Physician Hydraulic Governor Assembler 04/22/22 documented as of this encounter
--- OUTSIDE RECORDS SUMMARY | 2023-11-04 13:40 | External Medical Summary | Summary of Care ---
Author Name Unknown Organization [facility] Address [address] [facility] [place] [address] Phone [phone] Care Team Providers Care Correctional Facility Psychiatrist Name Role Phone Lynsey Alston PA-C Primary Care Provider [phone] Reason for Visit * Reason Onset Date Comments Med Request 06/26/2023 Encounter Details Date Type Department Care Team (Late st Contact Info) Description 06/26/2023 Telephone [facility] [place] [address] [place] [phone] Lynsey Alston PA-C [facility] [place] [address] Med Request Allergies Active [...] E-prescribed * Telephone Encounter - Maggie Peter, barge pilot - 06/26/2023 11:30 AM EST Patient is almost out of med Nurse calling requesting the following medication below that is listed as "Historical". The following information was provided: Medication Name: Alprazolam Strength: 0.25 Directions: Take 1 Tablet by mouth 2 times a day. At 1:00pm and 7:00pm BRAND NAME Preferred Quantity: 60 Previous Prescriber: Dr Alston Preferred Pharmacy: [facility] [address] Medication Name: Alprazolam Strength: 0.5 mg Directions: Take 1 Tablet by mouth in the morning. BRAND NAME Preferred Quantity: 30 Previous Prescriber: Dr Alston Preferred Pharmacy: [facility] [address] Please review and approve if appropriate. Maggie Mcgowan Pastry Artist II [facility] Clinical Pharmacy Services [address] [facility] [place] [address] 06/26/2023 11:32 AM documented in this encounter Plan of Treatment Upcoming Encounters Date Type Department Care Team (Late st Contact Info) Description 07/09/2023 12:20 PM EST Office Visit [facility] [place] 21 [place] [phone] Lynsey Alston PA-C 21 [place] [address] Health Maintenance Due Date Last Done Comments [...] D LEVEL ONCE IN A LIFETIME-USE SMARTSET# [id number] Completed 01/02/2023, 12/02/2021, 11/08/2020, Additional history exists [...] Documents on File Type Date Recorded Patient Licensed Marine Engineer Expl anation POLST 10/06/2022 [place] OR [facility] FOR LIFE-SUSTAINING TREATMENT Latest Code Status on [...] occurred with: Not Discussed Care Teams Correctional Facility Psychiatrist Relationship Specialty Start Date End Date Lynsey Alston PA-C 21 [place] [address] PCP - General Physician Production Cell Leader 04/22/22 documented as of this encounter
--- OUTSIDE RECORDS SUMMARY | 2023-11-04 13:40 | External Medical Summary | Summary of Care ---
Author Name Unknown Organization [facility] Address [address] [facility] [place] [address] Phone [phone] Care Team Providers Care Manufacturing Engineer Automotive Name Role Phone Davonte Nation PA-C Primary Care Provider [phone] Encounter Details Date Type Department Care Team (Late st Contact Info) Description 06/28/2023 Orders Only PATIENT PORTAL DO NOT DELETE THIS DEPT USED BY RONI SERRATO [id number] Allergies Active Allergy Reactions Criticality Noted Date Comments Zolpidem Other (Please comment) 09/04/2016 hallucinations Oxycodone-Acetaminophe n Other (Please comment) 02/26/2007 hallusanates documented as of this encounter (statuses as of 06/28/2023) Medications Medication Sig Dispensed Refills Start Date [...] 06/26/2023 Active ALPRAZolam 0.25 MG Oral Tablet (Xanax)Indications:A nxiety Take 1 Tablet by mouth 3 times a day as needed for Anxiety. BRAND NECESSARY 90 Tablet 5 06/26/2023 Active ALPRAZolam 0.25 MG Oral Tablet (xaNAX) Take one tablet at 12 PM and take one tablet at 6 PM. Brand Necessary 60 Tablet 2 06/27/2023 Active documented as of this encounter (statuses as of 06/28/2023) Active Problems Problem Noted Date Diagnosed Date [...] as of this encounter (statuses as of 06/28/2023) Resolved Problems Problem Noted Date Diagnosed Date [...] as of this encounter (statuses as of 06/28/2023) Immunizations Name Administration Dates Next Due Pneumococcal [...] Upcoming Encounters Date Type Department Care Team ([facility] st Contact Info) Description 06/28/2023 3:00 PM EST [facility] [place] [phone] Davnote Nation PA-C 21 [place] [address] [phone] 07/09/2023 12:20 PM EST [facility] [place] [phone] Davonte Nation PA-C 21 [place] [address] [...] D LEVEL ONCE IN A LIFETIME-USE SMARTSET# [id number] Completed 01/02/2023, 12/02/2021, 11/08/2020, Additional history exists [...] Documents on File Type Date Recorded Patient Mammalogist Expl arian POLST 10/06/2022 [place] OR [facility] FOR LIFE-SUSTAINING TREATMENT Latest Code Status on [...] Directives occurred with: Not Discussed Care Teams Manufacturing Engineer Automotive Relationship Specialty Start Date End Date Davonte Nation PA-C 21 [place] [address] PCP - General Physician Aperture Mask Etcher 04/22/22 documented as of this encounter
--- OUTSIDE RECORDS SUMMARY | 2023-11-04 13:40 | External Medical Summary | Summary of Care ---
Author Name Unknown Organization [facility] Address [address] [facility] [address] Phone [phone] Care Team Providers Care Power Systems Engineer Name Role Phone Lynsey Alston PA-C Primary Care Provider [phone] Reason for Visit * Reason Onset Date Comments FYI 07/02/2023 Encounter Details Date Type Department Care Team (Late st Contact Info) Description 07/02[facility]23 [facility] [address] [place] [phone] Lynsey Alston PA-C [facility] [place] [address] FYI Allergies Active Allergy [...] Ketone, Urine 15 (A) Negative mg/dL Specific [place], Urine 1.012 1.003 - 1.030 Blood, Urine [...] - 07/02/2023 1:09 PM EST Annalise from [facility] is calling to confirm that the Dr received the results of UA that was ordered. documented in this encounter Plan of Treatment Upcoming Encounters Date Type Department Care Team (Late st Contact Info) Description 07/09/2023 12:20 PM EST Office Visit [facility] 21 [place] [phone] Lynsey Alston PA-C 21 [facility] R[place] [phone] Health Maintenance Due Date Last Done Comments [...] D LEVEL ONCE IN A LIFETIME-USE SMARTSET# [id number] Completed 01/02/2023, 12/02/2021, 11/08/2020, Additional history exists [...] Documents on File Type Date Recorded Patient Press Tender Long Goods Expl anation POLST 10/06/2022 [place] [facility] FOR LIFE-SUSTAINING TREATMENT Latest Code Status [...] Directives occurred with: Not Discussed Care Teams Power Systems Engineer Relationship Specialty Start Date End Date Lynsey Alston PA-C 21 [address] [place] [phone] PCP - General Physician Head Greenskeeper 04/22/22 documented as of this encounter
--- OUTSIDE RECORDS SUMMARY | 2023-11-04 13:40 | External Medical Summary | Summary of Care ---
Author Name Unknown Organization [facility] Address [address] [facility] [place] [address] Phone [phone] Care Team Providers Care Stem Teacher Name Role Phone Lynsey Alston PA-C Primary Care Provider [phone] Reason for Visit * Reason Onset Date Comments Med Request 06/26/2023 Encounter Details Date Type Department Care Team (Late st Contact Info) Description 06/26/2023 Telephone [facility] [place] 21 [address]I [place] [phone] Lynsey Alston PA-C [facility] [place] [address] Med Request [...] E-prescribed * Telephone Encounter - Maggie Peter, market research analyst - 06/26/2023 11:30 AM EST Patient is almost out of med Nurse calling requesting the following medication below that is listed as "Historical". The following information was provided: Medication Name: Alprazolam Strength: 0.25 Directions: Take 1 Tablet by mouth 2 times a day. At 1:00pm and 7:00pm BRAND NAME Preferred Quantity: 60 Previous Prescriber: Dr Alston Preferred Pharmacy: [facility] [address] Medication Name: Alprazolam Strength: 0.5 mg Directions: Take 1 Tablet by mouth in the morning. BRAND NAME Preferred Quantity: 30 Previous Prescriber: Dr Alston Preferred Pharmacy: [facility] [address] Please review and approve if appropriate. Maggie Mcgowan Colorist Formulator II [facility] Clinical Pharmacy Services [address] [facility] [place] [address] 06/26/2023 11:32 AM documented in this encounter Plan of Treatment Upcoming Encounters Date Type Department Care Team (Late st Contact Info) Description 07/09/2023 12:20 PM EST Office Visit [facility] [place] 21 [place] [phone] Lynsey Alston PA-C 21 [place] [address] Health Maintenance Due Date Last Done Comments [...] D LEVEL ONCE IN A LIFETIME-USE SMARTSET# [id number] Completed 01/02/2023, 12/02/2021, 11/08/2020, Additional history exists [...] Documents on File Type Date Recorded Patient Middle School Pe Teacher Expl anation POLST 10/06/2022 [place] [facility] FOR LIFE-SUSTAINING TREATMENT Latest Code Status on [...] Directives occurred with: Not Discussed Care Teams Stem Teacher Relationship Specialty Start Date End Date Lynsey Alston PA-C 21 [place] [address] PCP - General Physician Inweaver 04/22/22 documented as of this encounter
--- OUTSIDE RECORDS SUMMARY | 2023-11-04 13:40 | External Medical Summary | Summary of Care ---
Author Name Unknown Organization [facility] Address [address] [facility] [place] [address] Phone [phone] Care Team Providers Care Welfare Specialist Name Role Phone Lynsey Alston PA-C Primary Care Provider [phone] Reason for Visit * Reason Onset Date Comments Med Request 06/26/202306/27 Encounter Details Date Type Department Care Team (Late st Contact Info) Description 06/26/2023 Telephone [facility] 21 [place] [phone] Lynsey Alston PA-C [facility] [place] [address] Med Request (06/27) Allergies Active Allergy [...] encounter Miscellaneous Notes * Addendum Note - David Merchant LPN - 06/27/2023 3:15 PM ESTAddended by: DAVID MERCHANT on: 06/27/2023 03:15 PM Modules accepted: Orders * Telephone Encounter - David Merhcant LPN - 06/27/2023 3:15 PM EST Pended, please review for accuracy. * Telephone Encounter - Lynsey Alston PA-C - 06/27/2023 2:25 PM EST Order what is needed. I will sign it. * Telephone Encounter - Meghna Jensen CPhT - 06/27/2023 12:30 PM EST Dump Operator calling in regarding ALPRAZolam 0.25 MG Oral Tablet (Xanax) . They said they have the wrong order. Rx should state take 1 tablet my mouth twice daily for anxiety and it needs to include that pt takes it at 12:00 pm and 6:00 pm. Please send to [facility] [place] Please advise. Thank you, Meghna Jensen CPht Mule Tender II [facility] (formerly [...] E-prescribed * Telephone Encounter - Maggie Peter visual coordinator - 06/26/2023 11:30 AM EST Patient is almost out of med Nurse calling requesting the following medication below that is listed as "Historical". The following information was provided: Medication Name: Alprazolam Strength: 0.25 Directions: Take 1 Tablet by mouth 2 times a day. At 1:00pm and 7:00pm BRAND NAME Preferred Quantity: 60 Previous Prescriber: Dr Altson Preferred Pharmacy: [facility] [address] Medication Name: Alprazolam Strength: 0.5 mg Directions: Take 1 Tablet by mouth in the morning. BRAND NAME Preferred Quantity: 30 Previous Prescriber: Dr Alston Preferred Pharmacy: [facility] [address] Please review and approve if appropriate. Maggie Mcgowan Mule Tender II [facility] [address] [facility] [place] [address] 06/26/2023 11:32 AM documented in this encounter Plan of Treatment Upcoming Encounters Date Type Department Care Team (Late st Contact Info) Description 06/28/2023 3:00 PM EST Office Visit [facility] 21 [address] [place] [phone] Lynsey Alston PA-C 21 [place] [address] 07/09/2023 12:20 PM EST Office Visit [facility] [place] 21 F[address] [place] [phone] Lynsey Alsotn PA-C [address] [place] [address] Health Maintenance Due Date Last Done Comments [...] D LEVEL ONCE IN A LIFETIME-USE SMARTSET# [id number] Completed 01/02/2023, 12/02/2021, 11/08/2020, Additional history exists [...] Documents on File Type Date Recorded Patient Insole Doubler Expl anation POLST 10/06/2022 [place] [facility] FOR LIFE-SUSTAINING TREATMENT Latest Code Status [...] Directives occurred with: Not Discussed Care Teams Welfare Specialist Relationship Specialty Start Date End Date Lynsey Alston PA-C 21 [place] [address] [address] PCP - General Physician University President 04/22/22 documented as of this encounter
--- OUTSIDE RECORDS SUMMARY | 2023-11-04 13:40 | External Medical Summary | Summary of Care ---
Author Name Unknown Organization [facility] Address [address] [facility] [place] [address] Phone [phone] Care Team Providers Care Spooler Operator Automatic Name Role Phone Lynsey Alston PA-C Primary Care Provider [phone] Reason for Visit * Reason Onset Date Comments Med Request 06/26/202306/27 Encounter Details Date Type Department Care Team (Late st Contact Info) Description 06/26/[address] [facility] 21 [place] [phone] Lynsey Alston PA-C 21 [place] [facility] [place] [address] Med Request (06/27) Allergies Active Allergy [...] Jensen CPhT - 06/27/2023 12:30 PM EST Case Therapist calling in regarding ALPRAZolam 0.25 MG Oral Tablet (Xanax) . They said they have the wrong order. Rx should state take 1 tablet my mouth twice daily for anxiety and it needs to include that pt takes it at 12:00 pm and 6:00 pm. Please send to [facility]- [place] Please advise. Thank you, Meghna Jensen CPht Instructional Support Assistant II [facility] ([facility] (formerly [...] E-prescribed * Telephone Encounter - Maggie Peter, under sheriff - 06/26/2023 11:30 AM EST Patient is almost out of med Nurse calling requesting the following medication below that is listed as "Historical". The following information was provided: Medication Name: Alprazolam Strength: 0.25 Directions: Take 1 Tablet by mouth 2 times a day. At 1:00pm and 7:00pm BRAND NAME Preferred Quantity: 60 Previous Prescriber: Dr Alston Preferred Pharmacy: [facility] [address] Medication Name: Alprazolam Strength: 0.5 mg Directions: Take 1 Tablet by mouth in the morning. BRAND NAME Preferred Quantity: 30 Previous Prescriber: Dr Alston Preferred Pharmacy: [facility] [address] Please review and approve if appropriate. Maggie Mcgowan Instructional Support Assistant II [facility] Clinical Pharmacy Services [address] [place] [phone] 06/26/2023 11:32 AM documented in this encounter Plan of Treatment Upcoming Encounters Date Type Department Care Team (Late st Contact Info) Description 06/28/2023 3:00 PM EST [facility] 21 [place] [phone] Lynsey Alston PA-C 21 [address] [place] [phone] 07/09/2023 12:20 PM EST [facility] 21 [place] [phone] Lynsey Alston PA-C 21 [place] [address] Health Maintenance Due Date Last Done Comments [...] D LEVEL ONCE IN A LIFETIME-USE SMARTSET# [id number] Completed 01/02/2023, 12/02/2021, 11/08/2020, Additional history exists [...] Documents on File Type Date Recorded Patient Energy Conservation Specialist Expl anation POLST 10/06/2022 [place] OR [facility] FOR LIFE-SUSTAINING TREATMENT Latest Code [...] Directives occurred with: Not Discussed Care Teams Spooler Operator Automatic Relationship Specialty Start Date End Date Lynsey Alston PA-C 21 [address] [place] [phone] PCP - General Physician Product Managent Intern 04/22/22 documented as of this encounter
--- OUTSIDE RECORDS SUMMARY | 2023-11-04 13:40 | External Medical Summary | Summary of Care ---
Author Name Unknown Organization [facility] Address [address] [facility] [place] [address] Phone [phone] Care Team Providers Care Patient Service Coordinator Name Role Phone Davonte Nation PA-C Primary Care Provider [phone] Reason for Visit * Reason Onset Date Comments Order Request 06/27/2023 Encounter Details Date Type Department Care Team (Late st Contact Info) Description 06/27/2023 [facility] 21 [employer] [place] [phone] Davonte Nation PA-C 21 [facility] [facility] [place] [address] Order Request Allergies Active Allergy Reactions Criticality Noted [...] BRAND NECESSARY 90 Tablet 5 06/26/2023 Active documented as of this encounter (statuses [...] encounter Miscellaneous Notes * Telephone Encounter - Prachi Mcdaniel CMA - 06/27/2023 11:55 AM EST Faxed orders to [facility] with confirmation. Also, I called [facility] and made them aware that orders were signed and faxed. * Telephone Encounter - Davonte Nation PA-C - 06/27/2023 11:27 AM EST Orders signed * Telephone Encounter - Prachi Mcdaniel CMA - 06/27/2023 10:53 AM EST Received transferred to me at back line from Do at [facility]. Pt c/o burning with urination x this am. No other sx or confusion. They are asking for UA orders to be faxed to [phone]. Their lab only comes on tues/thurs. documented in this encounter Plan of Treatment Upcoming Encounters Date Type Department Care Team (Late st Contact Info) Description 06/28/2023 3:00 PM EST Office Visit [facility] 21 [place] [phone] Davonte Nation PA-C 21 [place] [address] 07/09/2023 12:20 PM EST Office Visit [facility] 21 [place] [phone] Davonte Nation PA-C 21 [facility] R[place] [address] Scheduled Orders Name Type Priority Associated Diagnoses Orde r Schedule URINALYSIS, REFLEX TO MICROSCOPIC Lab Routine Dysuria Expected: 06/27/2023, Expires: 08/26/2023 CULTURE, URINE, QUANTITATIVE Lab Routine Dysuria Expected: 06/27/2023, Expires: 08/26/2023 Health Maintenance Due Date Last Done Comments [...] D LEVEL ONCE IN A LIFETIME-USE SMARTSET# [id number] Completed 01/02/2023, 12/02/2021, 11/08/2020, Additional history exists [...] as of this encounter Visit Diagnoses Diagnosis Dysuria- Primary documented in this encounter Advance Directives Documents on File Type Date Recorded Patient Director Cpg Expl anation POLST 10/06/2022 [place] [facility] [...] Directives occurred with: Not Discussed Care Teams Patient Service Coordinator Relationship Specialty Start Date End Date Davonte Nation PA-C 21 [address] [place] [phone] PCP - General Physician Physician Practice Administrator 04/22/22 documented as of this encounter
--- OUTSIDE RECORDS SUMMARY | 2023-11-04 13:40 | External Medical Summary ---
Author Name Unknown Address Unknown Organization K01:[facility] - [address] [id number] Laboratory Report Ordering Provider Test Date Status GAMALIEL MENON 06/28/2023 04:30:00 Final <10,000 colonies/ml mixed no rmal alphonso Observation Date Value Abnormality Reference (Units ) Status Bacteria identified in Specimen by Culture 06/28/2023 04:30:00 [id number]^STREPTOC OCCUS ANGINOSUS GROUP Abnormal Final >100,000 colonies/mL Strepto coccus anginosus group
Test: Culture, Urine, Quantitative
Specimen Source: Urine, Clean Catch
Specimen Type: Urine
Specimen Date: 06/28/2023 4:30 AM
Result Date: 07/02/2023 2:43 PM
Result Status: Final result
Abnormal: Yes
Resulting Lab: [facility]
[address]
[place] [address]

CULTURE

>100,000 colonies/mL Streptococcus anginosus group (Abnormal)

<10,000 colonies/ml mixed normal alphonso

null Performing Location [facility] - [address] [place] [address]
--- OUTSIDE RECORDS SUMMARY | 2023-11-04 13:40 | External Medical Summary | Summary of Care ---
Author Name Unknown Organization [facility] Address [address] [facility] [place] [address] Phone [phone] Care Team Providers Care Instrument Shop Supervisor Name Role Phone Davonte Nation PA-C Primary Care Provider [phone] Reason for Visit * Reason Onset Date Comments Order Request 06/27/2023 Encounter Details Date Type Department Care Team (Late st Contact Info) Description 06/27/[address] [facility] [address] [employer] [place] [phone] Davonte Nation PA-C 21 [facility] [place] [address] Order Request Allergies Active [...] Orders signed * Telephone Encounter - Prachi Mcdnaiel CMA - 06/27/2023 10:53 AM EST Received transferred to ms at back line from Do at [facility]. Pt c/o burning with urination x this am. No other sx or confusion. They are asking for UA orders to be faxed to [phone]. Their lab only comes on /. documented in this encounter Plan of Treatment Upcoming Encounters Date Type Department Care Team (Late st Contact Info) Description 06/28/2023 3:00 PM EST Office [facility] [place] 21 [place] [phone] Davonte Nation PA-C 21 [place] [address] 07/09/2023 12:20 PM EST [facility] 21 [place] [phone] Davonte Nation PA-C 21 [place] [place] [address] Scheduled Orders Name Type Priority Associated Diagnoses [...] D LEVEL ONCE IN A LIFETIME-USE SMARTSET# [id number] Completed 01/02/2023, 12/02/2021, 11/08/2020, Additional history exists [...] Documents on File Type Date Recorded Patient Splitter Hand Expl anation POLST 10/06/2022 [place] OR [facility] FOR LIFE-SUSTAINING TREATMENT Latest Code [...] Directives occurred with: Not Discussed Care Teams Instrument Shop Supervisor Relationship Specialty Start Date End Date Davonte Nation PA-C 21 [facility] [place] [address] PCP - General Physician Meter And Regulator Shop Supervisor 04/22/22 documented as of this encounter
--- OUTSIDE RECORDS SUMMARY | 2023-11-04 13:40 | External Medical Summary | Summary of Care ---
Author Name Unknown Organization [facility] Address [address] [facility] [address] Phone [phone] Care Team Providers Care Turnaround Planner Name Role Phone Davonte Nation PA-C Primary Care Provider [phone] Reason for Visit * Reason Onset Date Comments Health Maintenance 06/27/2023 Encounter Details Date Type Department Care Team (Late st Contact Info) Description 06/27/2023 [facility] [address] [place] [phone] Davonte Nation PA-C [facility] [place] [address] Health Maintenance Allergies Active Allergy Reactions Criticality Noted Date [...] encounter Miscellaneous Notes * Telephone Encounter - Tangela Salgado LPN - 06/27/2023 8:28 AM EST Care Gaps Comprehensive Care Outreach Last Office/Telemedicine Visit: 01/02/2023 (in office), Visit date not found (telemedicine) Next Office Visit: 07/09/2023 Hemoglobin AIC Results: No results found for: "HEMOGLOBIN A1C" BP Readings from Last 1 Encounters: 04/10/23 176/75 Reviewed Health Maintenance below: Health Maintenance Topic Date Due COVID-19 Vaccine (1) Never done Albumin/Creatinine Ratio Never done DTaP,Tdap,and Td Vaccines (1 - Tdap) Never done Zoster Vaccines (1 of 2) Never done Pneumococcal Vaccine: 65+ Years (1 - PCV) Never done DXA Scan 07/11/2013 Care Gap Outreach Action Taken: Left message documented in this encounter Plan of Treatment Upcoming Encounters Date Type Department Care Team (Late st Contact Info) Description 07/09/2023 12:20 PM EST Office Visit [facility] 21 [place] [phone] Davonte Nation PA-C 21 [place] [address] Health Maintenance Due Date Last Done Comments [...] D LEVEL ONCE IN A LIFETIME-USE SMARTSET# [id number] Completed 01/02/2023, 12/02/2021, 11/08/2020, Additional history exists [...] Documents on File Type Date Recorded Patient Prepress Technician Expl anation POLST 10/06/2022 [place] OR [facility] FOR LIFE-SUSTAINING TREATMENT Latest Code [...] Directives occurred with: Not Discussed Care Teams Turnaround Planner Relationship Specialty Start Date End Date Davonte Nation PA-C 21 [place] [address] PCP - General Physician Director Of Business Systems 04/22/22 documented as of this encounter
--- OUTSIDE RECORDS SUMMARY | 2023-11-04 13:40 | External Medical Summary | Summary of Care ---
Author Name Unknown Organization [facility] Address [address] [place] [address] Phone [phone] Care Team Providers Care Diesel Pile Hammer Operator Name Role Phone Lynsey Alston PA-C Primary Care Provider [phone] Reason for Visit * Reason Onset Date Comments case management 04/25/2023 Encounter Details Date Type Department Care Team (Late st Contact Info) Description 04/25/2023 Pinmaker Telephone Care Coordination and Integration [address], [place] [phone] Brian Prescott RN [address], [place] [phone] case management Allergies Active Allergy Reactions Criticality Noted Date Comments Zolpidem Other (Please comment) 09/04/2016 hallucinations Oxycodone-Acetaminophe n Other (Please comment) 02/26/2007 hallusanates documented as of this encounter (statuses as of 05/15/2023) Medications Medication Sig Dispensed Refills Start Date End Date Status Vitamin B-6 50 MG Oral Tablet Take 1 Tablet by mouth in the morning. 0 Active ALPRAZolam 0.5 MG Oral Tablet Take 1 Tablet by mouth in the morning. BRAND NAME. 0 Active ALPRAZolam 0.5 MG Oral Tablet [...] exceed 2 bottles per day. 0 Active documented as of this encounter (statuses as of 05/15/2023) Active Problems Problem Noted Date Diagnosed Date [...] as of this encounter (statuses as of 05/15/2023) Resolved Problems Problem Noted Date Diagnosed Date [...] as of this encounter (statuses as of 05/15/2023) Immunizations Name Administration Dates Next Due Pneumococcal [...] encounter Miscellaneous Notes * Telephone Encounter - Brian Prescott RN - 05/15/2023 1:53 PM EST VM from Avinash at [facility] Requesting order be re-faxed to them at [phone] * Telephone Encounter - Ivette Shafer OSA - 04/30/2023 12:23 PM EST MED INSTRUCTIONS FAXED REQUESTED FAX BACK OK * Telephone Encounter - Brian Prescott RN - 04/30/2023 12:03 PM EST Please fax today's medical instructions order to [facility] at [phone] * Addendum Note - Lynsey Alston PA-C - 04/30/2023 11:29 AM ESTAddended by: LYNSEY ALSTON on: 04/30/2023 11:29 AM Modules accepted: Orders * Telephone Encounter - Lynsey Alston PA-C - 04/30/2023 11:29 AM EST Order done * Addendum Note - Brian Prescott RN - 04/30/2023 10:28 AM ESTAddended by: BRIAN PRESCOTT on: 04/30/2023 10:28 AM Modules accepted: Orders * Telephone Encounter - Brian Prescott RN - 04/30/2023 10:24 AM EST Call back to [facility], spoke with Celina No specific wording for order about pt eating in room Pt will still most likely have to be considered a higher level of care if needing room-delivered meals, resulting in a higher cost Jose, Order pended, please adjust if needed and sign if agreeable * Telephone Encounter - Nhi Kenney OSA - 04/25/2023 2:04 PM EST Pt has an appt schedule with Jose Alston on 07/09/23 and appt is on the wait list. * Telephone Encounter - Brian Prescott RN - 04/25/2023 12:23 PM EST Call from pt, asking for appt as soon as possible with PCP She needs him to write excuse so that she can eat her meals in her room instead of going to the dining room due to her hearing issues and physical condition Has tried adjusting hearing aides and wearing ear plugs but nothing helps her be able to tolerate all the noise in the dining room She also says she needs to review lab work and have more lab work completed, talk about issues she has been having with her head and neck including dizziness Does not feel she was able to get everything addressed at last PCP appt due to time constraints Wants to return home from assisted living facility Getting physical therapy but not as often as she thinks she is to be Discussed that she can request to switch to a different agency if she would like, declines Reviewed that PCP does not have any openings for return appt until October Discussed process for scheduling acute appt and that acute appt slots are only available for scheduling the day before or day of appt Offered to schedule with another provider who can see her sooner She declines to be seen by any provider other than PCP Asked to be placed on cancellation list for sooner appt Reports anxiety quickly escalates to panic Taking Xanax Has never seen psychiatry or counseling before States her main stressor is paperwork she is receiving about her 's previous employment States her son that lives nearby almost of COVID so he can't assist and her other sons live out of state Call to [facility] to clarify what order would need to say They will check with account executive key accounts and call CM back front desk administrator, Please add pt to cancellation list for a sooner appt with Jose documented in this encounter Plan of Treatment Upcoming Encounters Date Type Department Care Team (Late st Contact Info) Description 07/09/2023 12:20 PM EST Office Visit [facility] [place] [address] [phone] Lynsey Alston PA-C [...] D LEVEL ONCE IN A LIFETIME-USE SMARTSET# [id number] Completed 01/02/2023, 12/02/2021, 11/08/2020, Additional history exists [...] Documents on File Type Date Recorded Patient Founder And Ceo Expl arian POLST 10/06/2022 [place] OR [facility] FOR LIFE-SUSTAINING TREATMENT Latest Code Status [...] Directives occurred with: Not Discussed Care Teams Diesel Pile Hammer Operator Relationship Specialty Start Date End Date Lynsey Alston PA-C [address] [id number] PCP - General Physician Museum Archivist 04/22/22 documented as of this encounter
--- OUTSIDE RECORDS SUMMARY | 2023-11-04 13:40 | External Medical Summary ---
Author Name Unknown Address Unknown Organization [id number]:[facility] - [address] [place] [address] Laboratory Report Ordering Provider Test Date Status GAMALIEL MENON 06/28/2023 04:30:00 Final Observation Date Value Abnormality Reference (Units) Status Color of Urine by Auto 06/28/2023 04:30:00 Yellow Light Yellow, Yellow, Dark Yellow Final Clarity, Urine 06/28/2023 04:30:00 Slightly Cloudy Abnormal Clear Final Glucose [Mass/volume] in Urine by Automated test strip 06/28/2023 04:30:00 Negative Negative (mg/dL) Final Bilirubin.total [Presence] in Urine by Automated test strip 06/28/2023 04:30:00 Negative Negative Final Ketones [Mass/volume] in Urine by Automated test strip 06/28/2023 04:30:00 15 Abnormal Negative (mg/dL) Final Specific gravity, Urine 06/28/2023 04:30:00 1.012 1.003-1.030 Final Hemoglobin [Presence] in Urine by Automated test strip 06/28/2023 04:30:00 Small Abnormal Negative Final pH, Urine 06/28/2023 04:30:00 8.0 Above high normal 5.0-7.5 (Units) Final Protein [Mass/volume] in Urine by Automated test strip 06/28/2023 04:30:00 Negative Negative (mg/dL) Final Urobilinogen [Mass/volume] in Urine by Automated test strip 06/28/2023 04:30:00 1.0 0.2, 1.0 (mg/dL) Final Nitrite [Presence] in Urine by Automated test strip 06/28/2023 04:30:00 Positive Abnormal Negative Final Leukocyte esterase [Presence] in Urine by Automated test strip 06/28/2023 04:30:00 Small Abnormal Negative Final Performing Location [facility] - [address] [facility] [place] [address]
--- OUTSIDE RECORDS SUMMARY | 2023-11-04 13:40 | External Medical Summary | Summary of Care ---
Author Name Unknown Organization [facility] Address [address] [place] [address] Phone [phone] Care Team Providers Care Double Ending Machine Operator Name Role Phone Lynsey Alston PA-C Primary Care Provider [phone] Reason for Visit * Reason Onset Date Comments case management 04/25/2023 Encounter Details Date Type Department Care Team (Late st Contact Info) Description 04/25/2023 Risk Management Specialist Telephone Care Coordination and Integration [address], [place] [phone] Brian Prescott RN [address], [place] [phone] case management Allergies Active Allergy Reactions Criticality [...] Telephone Encounter - Ivette Shafer OSA - 05/15/2023 2:00 PM EST Order refaxed as requested fax back ok * Telephone Encounter - Brian Prescott RN - 05/15/2023 1:53 PM EST VM from Avinash at [facility] Requesting order be re-faxed to them at [phone] * Telephone Encounter - Ivette Shafer OSA - 04/30/2023 12:23 PM EST MED INSTRUCTIONS FAXED REQUESTED FAX BACK OK * Telephone Encounter - Brian Prescott RN - 04/30/2023 12:03 PM EST Please fax today's medical instructions order to [facility] at [phone] * Addendum Note - Lynsey Alston PA-C [...] 04/30/2023 10:24 AM EST Call back to [facility], spoke with Celina No specific wording [...] Reports anxiety quickly escalates to panic Taking Magdy Has never seen psychiatry or counseling before States her main stressor is paperwork she is receiving about her 's previous employment States her son that lives nearby almost of COVID so he can't assist and her other sons live out of state Call to [facility] to clarify what order would need to say They will check with chairman & chief executive officer and call CM back it help desk associate, Please add pt to cancellation list for a sooner appt with Jose documented in this encounter Plan of Treatment Upcoming Encounters Date Type Department Care Team (Late st Contact Info) Description 07/09/2023 12:20 PM EST Office Visit [facility] [address] [phone] Lynsey Alston PA-C [address] [phone] Health Maintenance Due Date Last Done Comments [...] D LEVEL ONCE IN A LIFETIME-USE SMARTSET# [id number] Completed 01/02/2023, 12/02/2021, 11/08/2020, Additional history exists [...] Documents on File Type Date Recorded 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
[2023-11-04 14:14] LABS: Basophils # (auto) 0.03 K/uL (0.00-0.20); Basophils % (auto) 0.2 %; Eosinophils # (auto) 0.03 K/uL (0.00-0.50); Eosinophils % (auto) 0.2 %; Hematocrit (blood only) 41.4 % (37.0-47.0); Hemoglobin 13.2 g/dl (12.0-16.0); Immature Granulocytes # (auto) 0.24 K/uL (0.01-0.20); Immature Granulocytes % (auto) 1.8 %; Lymphocytes # (auto) 0.78 K/uL (1.20-3.40); Lymphocytes % (auto) 5.7 %; Mean Corpuscular Hemoglobin 28.1 pg (25.0-34.0); Mean Corpuscular Hgb Conc 31.9 g/dL (32.0-36.0); Mean Corpuscular Volume 88.1 fL (80.0-100.0); Mean Platelet Volume 10.8 fL (9.4-12.4); Monocytes # (auto) 0.53 K/uL (0.11-0.59); Monocytes % (auto) 3.9 %; Neutrophils # (auto) 12.06 K/uL (1.40-6.50); Neutrophils % (auto) 88.2 %; Platelet Count 262 K/uL (130-400); RDW Coefficient of Variation 14.4 % (11.5-14.5); RDW Standard Deviation 46.3 fL (36.4-46.3); White Blood Count 13.67 K/ul (4.8-10.8)
--- NOTE | 2023-11-04 14:16 | Emergency Department Note ---
Impression & Plan Abdominal pain, SBO (small bowel obstruction), Acute dehydration, Leukocytosis ED Provider Note HISTORY OF PRESENT ILLNESS: Patient is an 88-year-old female presenting with dehydration and weakness. Patient reports that she has chronic swelling of her bilateral lower extremities. She reports she was just discharged from the rehab facility in [place] and lives home alone. She has not been eating or drinking anything in the last week because she has difficulties getting up and ambulating to the bathroom. She states she has not had a bowel movement in the last 3 to 4 days. She is concerned that she is obstructed. Denies any nausea or vomiting. Denies any chest pain or shortness of breath. Reports that her mouth is very dry because she is dehydrated. Denies any lightheadedness or dizziness. Denies any headache or changes in vision. Denies any numbness or tingling or focal weakness in extremities. ROS: as above PHYSICAL EXAM: Constitutional: Patient appears in no acute distress. HENT: Head: Normocephalic and atraumatic. Eyes: EOMI, PERRL Mouth/Throat: Mucous membranes dry. Neck: Trachea midline. Neck supple. Cardiovascular: RRR, No murmurs, rubs or gallops. Intact distal pulses. Pulmonary/Chest: No respiratory distress. Breath sounds clear and equal bilaterally. No wheezes or rales. Abdominal: Abdomen soft, no tenderness, rebound or guarding. Musculoskeletal: No tenderness or deformity noted. +2 edema of the bilateral lower extremities extending to the mid bradley. Skin: Warm and dry. No rash, erythema, pallor or cyanosis Psychiatric: Appropriate mood and affect for situation. Neurological: Alert and keenly responsive. CN II-XII grossly intact, moving all extremities equally and fully. MDM: - Vitals signs showed hypertension - History obtained via patient. History as above. - Chronic conditions affecting care: HTN; fibromyalgia - Differential diagnoses include, but are not limited to: dehydration; electrolyte abnormality; small bowel obstruction; constipation; UTI; CHF exacerbation; ACS - Order placed for continuous cardiac monitoring. At this time, monitor showed rate of 80 bpm with normal sinus rhythm, per my interpretation. - External medical records reviewed. Discharge summary dated 10/06/2022 was reviewed. Patient was discharged from [facility] after being admitted for ambulatory dysfunction after an unwitnessed fall. - EKG interpreted by myself showed normal sinus rhythm. Rate 77 bpm. QT 384. No acute ischemic changes. - Laboratory workup interpreted by myself showed leukocytosis (WBC 13.67) with left shift; normal PT/INR; normal lactate; normal BNP; stable electrolytes; hyperglycemia (Glucose 120); normal TSH; normal troponin - UA negative for infection. - CXR negative for pneumonia, per my interpretation - Viral respiratory panel negative - Patient given 2L NS in ER. - CT abdomen/pelvis with IV contrast showed severe/high-grade small bowel obstruction with a transition point in the pelvis likely on the basis of adhesions. - Discussed case with surgeon wood tile installation helper, Dr. Hwang, at 16:25. He will be on his consult. - Discussion was had with case making machine operator about patient's case and need for admission - Hospitalist consulted for admission - Patient admitted to [facility] service for further evaluation and management. ASSESSMENT AND PLAN: Diagnosis: abdominal pain; small bowel obstruction; acute dehydration; leukocytosis Plan: admit Past Med/Surg History Problem List (Updated 11/04/23 @ 16:31 by Jyotsna Molina MD) Leukocytosis (Acute) Acute dehydration (Acute) SBO (small bowel obstruction) (Acute) Abdominal pain (Acute) Medical History Elevated troponin Fibromyalgia HTN (hypertension) TIA (transient ischemic attack) Surgical History History of hip replacement History of knee surgery Social History Smoking Status: Former smoker Preferred Language: Spanish Feels Safe at Home: Yes Allergies Allergies Allergy/AdvReac Type Severity Reaction Status Date / Time acetaminophen Allergy Severe "HALLUCINATION,DREAM Unverified 04/08/21 16:39 HORRIBLY" hydrocodone Allergy Severe "HALLUCINATION,DREAM Unverified 04/08/21 16:39 HORRIBLY" oxycodone Allergy Severe "HALLUCINATION,DREAM Unverified 04/08/21 16:39 HORRIBLY" Home Meds Home Medications Medication Instructions Recorded Confirmed alprazolam 0.5 mg tablet (Xanax) 0.5 mg PO BID 08/10/20 11/04/23 ascorbic acid (vitamin C) 500 mg 1,000 mg PO QAM 08/10/20 11/04/23 tablet (Vitamin C) aspirin 81 mg tablet,delayed 81 mg PO HS 08/10/20 11/04/23 release coQ10 (ubiquinol) 100 mg capsule 100 mg PO QDL 08/10/20 11/04/23 folic acid 400 mcg tablet 400 mg PO QAM 08/10/20 11/04/23 [id number] D2 500 1 tab PO DAILY 04/08/21 11/04/23 mg-50 mg-100 unit chewable tablet Results & Data (ED) Vital Signs Vital Signs - 24 hr 11/04/23 13:52 11/04/23 13:52 11/04/23 13:52 Temperature 36.6 C Temperature Source Temporal Artery Scan Pulse Rate 75 Pulse Rate [Finger] Pulse Rhythm [Finger] Pulse Strength [Finger] Respiratory Rate 16 16 16 Respiratory Effort / Characteristics Respiratory Depth Respiratory Pattern Blood Pressure 168/87 H Blood Pressure [Right Arm] Blood Pressure Mean 114 Blood Pressure Mean [Right Arm] Blood Pressure Position [Right Arm] Pulse Oximetry 95 Oxygen Delivery Method Sepsis Recent Fever Within 48 Hours No Sepsis New/Unexplained Change in Mental Status N/A Sepsis Action Taken by Nursing No Action Required 11/04/23 13:57 11/04/23 14:20 11/04/23 15:04 Temperature Temperature Source Pulse Rate 71 Pulse Rate [Finger] 79 Pulse Rhythm [Finger] Regular Pulse Strength [Finger] Normal Respiratory Rate 20 Respiratory Effort / Characteristics Non-Labored Respiratory Depth Normal Respiratory Pattern Regular Blood Pressure Blood Pressure [Right Arm] 146/77 H Blood Pressure Mean Blood Pressure Mean [Right Arm] 100 Blood Pressure Position [Right Arm] Lying Pulse Oximetry 95 97 Oxygen Delivery Method Room Air Sepsis Recent Fever Within 48 Hours Sepsis New/Unexplained Change in Mental Status Sepsis Action Taken by Nursing Laboratory Data 11/04/23 13:47 11/04/23 13:47 Lab Results 11/04/23 11/04/23 11/04/23 Range/Units 13:47 14:45 15:00 WBC 13.67 H (4.8-10.8) K/ul RBC 4.70 (4.20-5.40) M/uL Hgb 13.2 (12.0-16.0) g/dl Hct 41.4 (37.0-47.0) % MCV 88.1 (80.0-100.0) fL MCH 28.1 (25.0-34.0) pg MCHC 31.9 L (32.0-36.0) g/dL RDW Std Deviation 46.3 (36.4-46.3) fL RDW Coeff of Artemio 14.4 (11.5-14.5) % Plt Count 262 (130-400) K/uL MPV 10.8 (9.4-12.4) fL Immature Gran % (Auto) 1.8 % Neut % (Auto) 88.2 % Lymph % (Auto) 5.7 % [place] % (Auto) 3.9 % Eos % (Auto) 0.2 % Baso % (Auto) 0.2 % Neut # (Auto) 12.06 H (1.40-6.50) K/uL Lymph # (Auto) 0.78 L (1.20-3.40) K/uL [place] # (Auto) 0.53 (0.11-0.59) K/uL Eos # (Auto) 0.03 (0.00-0.50) K/uL Baso # (Auto) 0.03 (0.00-0.20) K/uL Immature Gran # (Auto) 0.24 H (0.01-0.20) K/uL PT 10.3 (9.0-12.0) Seconds INR 0.9 (0.9-1.1) Sodium 137 (136-145) mmol/L Potassium 4.4 (3.5-5.1) mmol/L Chloride 100 (98-107) mmol/L Carbon Dioxide 32 (21-32) mmol/L Anion Gap 5 (3-11) BUN 21 (6-23) mg/dl Creatinine 0.48 L (0.6-1.2) mg/dl Est Cr Clr Drug Dosing 43.8 ml/min Est GFR ( Amer) 102.9 ml/min Est GFR (Non-Af Amer) 88.8 ml/min BUN/Creatinine Ratio 43.8 H (10-20) Glucose 120 H (70-99(Fasting)) mg/dl Lactate (0.4-2.0) mmol/L Calcium 9.6 (8.6-10.3) mg/dl Magnesium 2.1 (1.7-2.4) mg/dl Total Bilirubin 0.6 (0.2-1.0) mg/dl AST 26 (13-39) U/L ALT 18 (7-52) U/L Alkaline Phosphatase 172 H (34-104) U/L Troponin I High Sens 3.9 (0-14) pg/ml B-Natriuretic Peptide (0-100) pg/ml Total Protein 6.9 (6.0-8.3) gm/dl Albumin 4.0 (3.4-5.0) gm/dl Globulin 2.9 (2.5-4.0) gm/dl Albumin/Globulin Ratio 1.4 (0.9-2) TSH 2.134 (0.300-4.500) uIu/ml Urine Color Yellow Urine Appearance Clear (Clear) Urine pH 8.5 H (4.5-7.5) Ur Specific [place] 1.017 (1.000-1.030) Urine Protein Negative (Negative) Urine Glucose (UA) Negative (Negative) Urine Ketones Negative (Negative) Urine Blood Negative (Negative) Urine Nitrite Negative (Negative) Urine Bilirubin Negative (Negative) Urine Urobilinogen Negative (Negative) Ur Leukocyte Esterase 1+ H (Negative) Urine WBC (Auto) 0-5 (0-5) /hpf Urine RBC (Auto) 0-2 (0-2) /hpf U Hyaline Cast (Auto) 0-2 (0-2) /lpf U Epithel Cells (Auto) 0-2 (0-2) /hpf Urine Bacteria (Auto) None Seen (None Seen) Adenovirus (PCR) Not Detected (NotDetected) B. pertussis DNA (PCR) Not Detected (NotDetected) B.parapertussis DNA PCR Not Detected (NotDetected) C. pneumoniae DNA (PCR) Not Detected (NotDetected) Coronavirus OC43 (PCR) Not Detected (NotDetected) Coronavirus HKU1 (PCR) Not Detected (NotDetected) Coronavirus 229E (PCR) Not Detected (NotDetected) SARS-CoV-2 (PCR) Not Detected (NotDetected) Coronavirus NL63 (PCR) Not Detected (NotDetected) Human Metapneumovir PCR Not Detected (NotDetected) Influenza Type A (PCR) Not Detected (NotDetected) Influenza Type B (PCR) Not Detected (NotDetected) M. pneumoniae (PCR) Not Detected (NotDetected) Parainfluenza 1 (PCR) Not Detected (NotDetected) Parainfluenza 2 (PCR) Not Detected (NotDetected) Parainfluenza 3 (PCR) Not Detected (NotDetected) Parainfluenza 4 (PCR) Not Detected (NotDetected) RSV (PCR) Not Detected (NotDetected) Entero/Rhino (PCR) Not Detected (NotDetected) 11/04/23 Range/Units 15:12 WBC (4.8-10.8) K/ul RBC (4.20-5.40) M/uL Hgb (12.0-16.0) g/dl Hct (37.0-47.0) % MCV (80.0-100.0) fL MCH (25.0-34.0) pg MCHC (32.0-36.0) g/dL RDW Std Deviation (36.4-46.3) fL RDW Coeff of Artemio (11.5-14.5) % Plt Count (130-400) K/uL MPV (9.4-12.4) fL Immature Gran % (Auto) % Neut % (Auto) % Lymph % (Auto) % [place] % (Auto) % Eos % (Auto) % Baso % (Auto) % Neut # (Auto) (1.40-6.50) K/uL Lymph # (Auto) (1.20-3.40) K/uL [place] # (Auto) (0.11-0.59) K/uL Eos # (Auto) (0.00-0.50) K/uL Baso # (Auto) (0.00-0.20) K/uL Immature Gran # (Auto) (0.01-0.20) K/uL PT (9.0-12.0) Seconds INR (0.9-1.1) Sodium (136-145) mmol/L Potassium (3.5-5.1) mmol/L Chloride (98-107) mmol/L Carbon Dioxide (21-32) mmol/L Anion Gap (3-11) BUN (6-23) mg/dl Creatinine (0.6-1.2) mg/dl Est Cr Clr Drug Dosing ml/min Est GFR ( Amer) ml/min Est GFR (Non-Af Amer) ml/min BUN/Creatinine Ratio (10-20) Glucose (70-99(Fasting)) mg/dl Lactate 0.9 (0.4-2.0) mmol/L Calcium (8.6-10.3) mg/dl Magnesium (1.7-2.4) mg/dl Total Bilirubin (0.2-1.0) mg/dl AST (13-39) U/L ALT (7-52) U/L Alkaline Phosphatase (34-104) U/L Troponin I High Sens (0-14) pg/ml B-Natriuretic Peptide 53 (0-100) pg/ml Total Protein (6.0-8.3) gm/dl Albumin (3.4-5.0) gm/dl Globulin (2.5-4.0) gm/dl Albumin/Globulin Ratio (0.9-2) TSH (0.300-4.500) uIu/ml Urine Color Urine Appearance (Clear) Urine pH (4.5-7.5) Ur Specific [place] (1.000-1.030) Urine Protein (Negative) Urine Glucose (UA) (Negative) Urine Ketones (Negative) Urine Blood (Negative) Urine Nitrite (Negative) Urine Bilirubin (Negative) Urine Urobilinogen (Negative) Ur Leukocyte Esterase (Negative) Urine WBC (Auto) (0-5) /hpf Urine RBC (Auto) (0-2) /hpf U Hyaline Cast (Auto) (0-2) /lpf U Epithel Cells (Auto) (0-2) /hpf Urine Bacteria (Auto) (None Seen) Adenovirus (PCR) (NotDetected) B. pertussis DNA (PCR) (NotDetected) B.parapertussis DNA PCR (NotDetected) C. pneumoniae DNA (PCR) (NotDetected) Coronavirus OC43 (PCR) (NotDetected) Coronavirus HKU1 (PCR) (NotDetected) Coronavirus 229E (PCR) (NotDetected) SARS-CoV-2 (PCR) (NotDetected) Coronavirus NL63 (PCR) (NotDetected) Human Metapneumovir PCR (NotDetected) Influenza Type A (PCR) (NotDetected) Influenza Type B (PCR) (NotDetected) M. pneumoniae (PCR) (NotDetected) Parainfluenza 1 (PCR) (NotDetected) Parainfluenza 2 (PCR) (NotDetected) Parainfluenza 3 (PCR) (NotDetected) Parainfluenza 4 (PCR) (NotDetected) RSV (PCR) (NotDetected) Entero/Rhino (PCR) (NotDetected) Administered Medications Discontinued Medications Sodium Chloride (Nss) 1,000 mls @ 999 mls/hr IV .Q1H1M ONE Stop: 11/04/23 15:16 Last Infusion: 11/04/23 16:01 Dose: Infused Documented By: Admin: 11/04/23 14:58 Dose: 999 mls/hr Documented By: JOSE Imaging Data Radiologist's Impression: Chest X-Ray 11/04/23 13:57 SINGLE VIEW CHEST CLINICAL HISTORY: Generalized weakness. FINDINGS: An AP, portable, upright chest radiograph is compared to study dated 08/13/2022 and correlated with chest CT dated 05/17/2016. The examination is degraded by portable technique and patient rotation. The heart is enlarged noting atherosclerotic calcification of the thoracic aorta. The pulmonary vasculature is noncongested. Chronic interstitial thickening is somewhat previous. There is bibasilar scarring/atelectasis. No airspace consolidation or large pleural effusion is identified. No pneumothorax is seen. The skeletal structures are osteopenic. The bony thorax is grossly intact. Advanced arthritic change and deformity is seen in the shoulders. IMPRESSION: No acute cardiopulmonary abnormality. ACT 112: Negative or not required by law. Electronically signed by: Preet Merino M.D. 11/04/2023 2:20 PM Abdomen/Pelvis CT 11/04/23 14:16 CT SCAN OF THE ABDOMEN AND PELVIS WITHOUT IV CONTRAST CLINICAL HISTORY: Generalized abdominal pain. COMPARISON STUDY: Abdominal CT dated 05/17/2016. TECHNIQUE: CT scan of the abdomen and pelvis is performed from the lung bases to the proximal femora. Images are reviewed in the axial, sagittal, and coronal planes. IV contrast was not administered for this examination. Note that the examination was performed in significantly suboptimal fashion without oral and IV contrast. Examination is also degraded by spinal scoliosis and a paucity of intraperitoneal fat. A dose lowering technique was utilized adhering to the principles of ALARA. CT DOSE: 310.66 mGy.cm FINDINGS: Lung bases: The heart is mildly enlarged noting trace pericardial effusion. There are coronary artery calcifications. Mild bronchiectasis is seen at the lung bases. The lung bases are clear noting bibasilar scarring/atelectasis. Liver: The unenhanced liver is normal in size, contour, and attenuation. There is no intrahepatic biliary ductal dilatation. Gallbladder: Unremarkable. Spleen: Normal in size and attenuation. A 3.1 cm cystic focus in the anterior spleen on image #67 is new from 2017. 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 Pancreas: The unenhanced pancreas is atrophic and grossly unremarkable. Adrenal glands: Unremarkable. Kidneys: The unenhanced kidneys are atrophic and without hydronephrosis. There are no renal calculi identified. There is no evidence of contour deforming renal mass lesion. Abdominal vasculature: The abdominal aorta is normal in course and caliber noting [id number] atherosclerotic calcification. Bowel: The small bowel loops are slightly distended and fluid-filled, measuring up to 3.7 cm in diameter. A transition point is seen in the central pelvis on image #212. The distal small bowel is decompressed and findings are consistent with a high-grade small bowel obstruction. There is interloop fluid. No pneumatosis intestinalis or portal venous gas is clearly seen. No focally thick- walled bowel loops are clearly seen. The colon is decompressed and there is mild fecal retention. The appendix is not visualized. Peritoneum: There is a small volume of abdominopelvic ascites. No intraperitoneal free air is seen. Lymphadenopathy: None. Pelvic viscera: Evaluation of the pelvis is significantly degraded by streak artifact from bilateral hip arthroplasties. The bladder is decompressed around a Montalvo catheter and could not be evaluated. The uterus is surgically absent. No adnexal lesion is seen. Skeletal structures: The skeletal structures are osteopenic. There is advanced lumbar sacral spondylosis and scoliosis. There are numerous mild and chronic appearing thoracolumbar compression deformities. No lytic or blastic lesions are seen. Bilateral hip arthroplasties are in place. IMPRESSION: 1. Severe/high grade small bowel obstruction. A transition point is suggested in the pelvis, and this is likely on the basis of adhesions. 2. There is interloop fluid and a small volume of abdominopelvic ascites. 3. No intraperitoneal free air is identified, and there is no definite pneumatosis intestinalis or portal venous gas. 4. Additional findings as above. ACT 112: Negative or not required by law. Electronically signed by: Preet Merino M.D. 11/04/2023 4:09 PM Discharge Plan Visit Data Chief Complaint: Swelling/Edema to Extremity Stated Complaint: EDEMA ED Provider: Jyotsna Molina Discharge Problem: Abdominal pain, SBO (small bowel obstruction), Acute dehydration, Leukocytosis Forms Stand Alone Forms: [facility] Prescriptions Prescriptions: No Action folic acid 400 mcg Tablet 400 mg PO QAM Rx Instructions: otc unable to verify with pharmacy aspirin [Aspir-81] 81 mg Tablet,Delayed Release (Dr/Ec) 81 mg PO HS Rx Instructions: otc unable to verify with pharmacy alprazolam [Xanax] 0.5 mg tablet 0.5 mg PO BID ascorbic acid (vitamin C) [Vitamin C] 500 mg Tablet 1,000 mg PO QAM Rx Instructions: otc unable to verify with pharmacy coQ10 (ubiquinol) 100 mg Capsule 100 mg PO QDL Rx Instructions: otc unable to verify with pharmacy annolos-aqltjnjsz-njnerpm D2 500-50-100 mg-mg-unit Tablet,Chewable 1 tab PO DAILY Rx Instructions: otc unable to verify with pharmacy Referrals Referrals: Erin Abdi MD [Primary Care Provider] -
[2023-11-04 14:20] LABS: Albumin Globulin Ratio 1.4 (0.9-2); BUN Creatinine Ratio 43.8 (10-20); Bilirubin,Total 0.6 mg/dl (0.2-1.0); Calcium 9.6 mg/dl (8.6-10.3); Creatinine Clr Calc Pharmacy 43.8 ml/min; Est GFR (African American) 102.9 ml/min; Est GFR (Non-African American) 88.8 ml/min; Globulin 2.9 gm/dl (2.5-4.0); Magnesium 2.1 mg/dl (1.7-2.4); Potassium 4.4 mmol/L (3.5-5.1); Total Protein 6.9 gm/dl (6.0-8.3)
--- NOTE | 2023-11-04 14:22 | XRay Report ---
SINGLE VIEW CHEST CLINICAL HISTORY: Generalized weakness. FINDINGS: An AP, portable, upright chest radiograph is compared to study dated 08/13/2022 and correlate d with chest CT dated 05/17/2016. The examination is degraded by portable technique and patient rotatio n. The heart is enlarged noting atherosclerotic calcification of the thoracic aorta. The pulmonary v asculature is noncongested. Chronic interstitial thickening is somewhat previous. There is bibasilar scarring/atelectasis. No airspace consolidation or large pleural effusion is identified. No pneumotho rax is seen. The skeletal structures are osteopenic. The bony thorax is grossly intact. Advanced arth ritic change and deformity is seen in the shoulders. IMPRESSION: No acute cardiopulmonary abnormality. ACT 112: Negative or not required by law. Electronically signed by: Preet Merino M.D. 11/04/2023 2:20 PM
[2023-11-04 14:26] LABS: Troponin I High Sensitivity 3.9 pg/ml (0-14)
[2023-11-04 14:35] LABS: INR 0.9 (0.9-1.1); Prothrombin Time 10.3 Seconds (9.0-12.0)
[2023-11-04 14:36] LABS: Thyroid Stimulating Hormone 2.134 uIu/ml (0.300-4.500)
[2023-11-04] MEDS: SODIUM CHLORIDE 0.9% 1,000 ML IV ONE (14:58)
[2023-11-04 15:05] LABS: Appearance Urine Clear (Clear); Bacteria Urine Automated None Seen (None Seen); Bilirubin Urine Negative (Negative); Blood Urine Negative (Negative); Cast Urine Automated 0-2 /lpf (0-2); Color Urine Yellow; Epithelial Cell Urine Auto 0-2 /hpf (0-2); Glucose Urine UA Negative (Negative); Ketones Urine Negative (Negative); Leukocyte Esterase Urine 1+ (Negative); Nitrite Urine Negative (Negative); Protein Urine Negative (Negative); RBC Urine Automated 0-2 /hpf (0-2); Specific Gravity Urine 1.017 (1.000-1.030); Urobilinogen Urine Negative (Negative); WBC Urine Automated 0-5 /hpf (0-5); pH Urine 8.5 (4.5-7.5)
--- NOTE | 2023-11-04 16:11 | CT Scan Report ---
CT SCAN OF THE ABDOMEN AND PELVIS WITHOUT IV CONTRAST CLINICAL HISTORY: Generalized abdominal pain. COMPARISON STUDY: Abdominal CT dated 05/17/2016. TECHNIQUE: CT scan of the abdomen and pelvis is performed from the lung bases to the proximal femora. Images are reviewed in the axial, sagittal, and coronal planes. IV contrast was not administered for this examination. Note that the examination was performed in significantly suboptimal fashion withou t oral and IV contrast. Examination is also degraded by spinal scoliosis and a paucity of intraperito niko fat. A dose lowering technique was utilized adhering to the principles of ALARA. CT DOSE: 310.66 mGy.cm FINDINGS: Lung bases: The heart is mildly enlarged noting trace pericardial effusion. There are coronary artery calcifications. Mild bronchiectasis is seen at the lung bases. The lung bases are clear noting bibas ilar scarring/atelectasis. Liver: The unenhanced liver is normal in size, contour, and attenuation. There is no intrahepatic ronn iary ductal dilatation. Gallbladder: Unremarkable. Spleen: Normal in size and attenuation. A 3.1 cm cystic focus in the anterior spleen on image #67 is new from 2017. 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 Pancreas: The unenhanced pancreas is atrophic and grossly unremarkable. Adrenal glands: Unremarkable. Kidneys: The unenhanced kidneys are atrophic and without hydronephrosis. There are no renal calculi i dentified. There is no evidence of contour deforming renal mass lesion. Abdominal vasculature: The abdominal aorta is normal in course and caliber noting [id number] at herosclerotic calcification. Bowel: The small bowel loops are slightly distended and fluid-filled, measuring up to 3.[address] A transition point is seen in the central pelvis on image #212. The distal small bowel is decomp ressed and findings are consistent with a high-grade small bowel obstruction. There is interloop flui d. No pneumatosis intestinalis or portal venous gas is clearly seen. No focally thick-walled bowel lo ops are clearly seen. The colon is decompressed and there is mild fecal retention. The appendix is n ot visualized. Peritoneum: There is a small volume of abdominopelvic ascites. No intraperitoneal free air is seen. Lymphadenopathy: None. Pelvic viscera: Evaluation of the pelvis is significantly degraded by streak artifact from bilateral hip arthroplasties. The bladder is decompressed around a Montalvo catheter and could not be evaluated. T he uterus is surgically absent. No adnexal lesion is seen. Skeletal structures: The skeletal structures are osteopenic. There is advanced lumbar sacral spondylo sis and scoliosis. There are numerous mild and chronic appearing thoracolumbar compression deformitie s. No lytic or blastic lesions are seen. Bilateral hip arthroplasties are in place. IMPRESSION: 1. Severe/high grade small bowel obstruction. A transition point is suggested in the pelvis, and this is likely on the basis of adhesions. 2. There is interloop fluid and a small volume of abdominopelvic ascites. 3. No intraperitoneal free air is identified, and there is no definite pneumatosis intestinalis or po rtal venous gas. 4. Additional findings as above. ACT 112: Negative or not required by law. Electronically signed by: Preet Merino M.D. 11/04/2023 4:09 PM
[2023-11-04 16:12] LABS: Adenovirus PCR Not Detected (NotDetected); Bordetella parapertussis PCR Not Detected (NotDetected); Bordetella pertussis PCR Not Detected (NotDetected); Chlamydia pneumoniae PCR Not Detected (NotDetected); Coronavirus 229E PCR Not Detected (NotDetected); Coronavirus CoV-2 (COVID19)PCR Not Detected (NotDetected); Coronavirus HKU1 PCR Not Detected (NotDetected); Coronavirus NL63 PCR Not Detected (NotDetected); Coronavirus OC43PCR Not Detected (NotDetected); Human Metapneumovirus PCR Not Detected (NotDetected); Influenza A PCR Not Detected (NotDetected); Influenza B PCR Not Detected (NotDetected); Mycoplasma pneumoniae PCR Not Detected (NotDetected); Parainfluenza Virus 1 PCR Not Detected (NotDetected); Parainfluenza Virus 2 PCR Not Detected (NotDetected); Parainfluenza Virus 3 PCR Not Detected (NotDetected); Parainfluenza Virus 4 PCR Not Detected (NotDetected); Respiratory Syncytial VirusPCR Not Detected (NotDetected); Rhinovirus/Enterovirus PCR Not Detected (NotDetected)
--- NOTE | 2023-11-04 17:15 | History & Physical Report ---
Date of Service November 04, 2023 Assessment & Plan (1) SBO (small bowel obstruction): Plan: Abdominal distention and discomfort for the last few days No bowel movement for 3 days Nausea in the emergency room CT of the abdomen did show high-grade small bowel obstruction Surgery was consulted Will keep her n.p.o., IV fluid and symptomatic medications as needed Will monitor electrolytes while in the hospital (2) Abdominal pain: Plan: Has discomfort but no significant pain Will try to avoid any narcotic pain medications (3) Acute dehydration: Plan: She has not been drinking or eating enough for the last few weeks or so She felt that she was very dry and was brought into the emergency room Clinically dry with normal BUN and creatinine Will give intravenous fluid and monitor kidney function (4) HTN (hypertension): Plan: History of hypertension but does not take any medications Blood pressure is on the higher side Will start small dose of beta-anny if needed (5) TIA (transient ischemic attack): Plan: History of TIA Has been on aspirin 81 mg with continue Has significant osteoarthritis Mainly the knee joints Will get PT OT evaluation prior to discharge DVT prophylaxis Subcu heparin CODE STATUS DNR/DNI and that was discussed with the patient in detail History of Present Illness Chief Complaint: Abdominal distention, acute dehydration and decreased mobility for the last few days Primary Care Provider: Erin Abdi MD She is an 88 years old lady with significant past medical history of hypertension, history of TIA and anxiety anxiety disorder on alprazolam 0.5 mg twice daily without any other significant past medical history apparently has been less mobile for a while. For the last few weeks she has not been coming out of bed and eating or drinking the way she is supposed to be. She is also having abdominal swelling with some discomfort and has not had any bowel movement for the last 3 days. She is getting weaker day by day that she hardly comes out of bed to do things for her daily living. She felt that she was very dry and dehydrated and she came to the emergency room for further evaluation. Has abdominal distention but no pain no nausea except in the emergency room and no vomiting. No fever and no chills. Urine has been very dark. CT of the abdomen did show acute intestinal obstruction and from that point she was admitted to medical floor for continuation of care. Surgery consultation was taken as well Allergies Allergy/AdvReac Type Severity Reaction Status Date / Time acetaminophen Allergy Severe "HALLUCINATION,DREAM Unverified 04/08/21 16:39 HORRIBLY" hydrocodone Allergy Severe "HALLUCINATION,DREAM Unverified 04/08/21 16:39 HORRIBLY" oxycodone Allergy Severe "HALLUCINATION,DREAM Unverified 04/08/21 16:39 HORRIBLY" Home Medications Medication Instructions Recorded Confirmed Type alprazolam 0.5 mg tablet (Xanax) 0.5 mg PO BID 08/10/20 11/04/23 History ascorbic acid (vitamin C) 500 mg 1,000 mg PO QAM 08/10/20 11/04/23 History tablet (Vitamin C) aspirin 81 mg tablet,delayed 81 mg PO HS 08/10/20 11/04/23 History release coQ10 (ubiquinol) 100 mg capsule 100 mg PO QDL 08/10/20 11/04/23 History folic acid 400 mcg tablet 400 mg PO QAM 08/10/20 11/04/23 History kvdofdw-rabxuyyfi-frqurgq D2 500 1 tab PO DAILY 04/08/21 11/04/23 History mg-50 mg-100 unit chewable tablet Past Med/Surg History Problem List TIA (transient ischemic attack) HTN (hypertension) Leukocytosis (Acute) Acute dehydration (Acute) SBO (small bowel obstruction) (Acute) Abdominal pain (Acute) Medical History Elevated troponin Fibromyalgia Surgical History History of knee surgery History of hip replacement Social History Smoking Status: Never smoker Hx Alcohol Use: No Hx Substance Use: No Preferred Language: Welsh Communication Ability: Effective [employer] Fe[employer] Required: No Beliefs That Will Affect Care: None Current Living Situation: Alone Feels Safe at Home: No Assistive Devices: Walker Review of Systems Review of Systems: All systems reviewed and are unremarkable except as noted below Physical Exam Physical Exam: Lying in bed without any acute distress Constitutional: + ill appearing and + thin Eyes: PERRL, conjunctivae normal, anicteric sclerae ENMT: external ear and nose normal, oropharynx normal Neck: trachea midline, no thyromegaly Respiratory: no respiratory distress Auscultation: lungs clear to auscultation bilaterally Cardiovascular: Rate/Rhythm: regular rate and regular rhythm; not tachycardic Heart Sounds: normal S1 and normal S2; no murmur Extremities: + edema (1+ edema bilaterally. Chronic change in the right sole of the foot) Musculoskeletal: Significant weight changes involving the knees and other joints. Moderate amount of pain with movement of the knee joints Neurologic: Alert, awake and oriented x 3. Generally very weak and lethargic. No focal sensory deficit . Lymphatic: no cervical or axillary lymphadenopathy Results & Data Results & Data Vital Signs (Past 12 Hours) Vital Signs Temp Pulse Pulse Resp BP BP Pulse Ox 11/04/23 15:04 79 20 146/77 H 97 11/04/23 14:20 71 11/04/23 13:57 95 11/04/23 13:52 16 11/04/23 13:52 16 11/04/23 13:52 36.6 C 75 16 168/87 H 95 O2 Del Method 11/04/23 15:04 Room Air 11/04/23 14:20 11/04/23 13:57 11/04/23 13:52 11/04/23 13:52 11/04/23 13:52 Laboratory Results Short CBC 11/04/23 Range/Units 13:47 WBC 13.67 H (4.8-10.8) K/ul Hgb 13.2 (12.0-16.0) g/dl Hct 41.4 (37.0-47.0) % Plt Count 262 (130-400) K/uL BMP 11/04/23 13:47 Sodium 137 Potassium 4.4 Chloride 100 Carbon Dioxide 32 BUN 21 Creatinine 0.48 L Glucose 120 H Calcium 9.6 Liver Function 11/04/23 Range/Units 13:47 Total Bilirubin 0.6 (0.2-1.0) mg/dl AST 26 (13-39) U/L ALT 18 (7-52) U/L Alkaline Phosphatase 172 H (34-104) U/L Albumin 4.0 (3.4-5.0) gm/dl Urine 11/04/23 Range/Units 14:45 Urine Color Yellow Urine Appearance Clear (Clear) Urine pH 8.5 H (4.5-7.5) Ur Specific Doon 1.017 (1.000-1.030) Urine Protein Negative (Negative) Urine Glucose (UA) Negative (Negative) (4) HTN (hypertension) Hypertension type: unspecified Qualified Code(s): I10 - Essential (primary) hypertension
[2023-11-04] MEDS ORDERED: ONDANSETRON INJ 2 MG/ML 2 ML VIAL IV PRN (17:17)
[2023-11-04] MEDS: SODIUM CHLORIDE 0.9% 1,000 ML IV SCH (19:06)
[2023-11-04] MEDS: HEPARIN SOD 5,000 UNIT/0.5 ML VIAL SQ SCH (22:47)
[2023-11-04] MEDS: ALPRAZolam 0.5 MG TABLET PO SCH (22:47)
[2023-11-04] MEDS: ASPIRIN 81 MG ECTAB PO SCH (22:47)
[2023-11-05 06:32] LABS: Basophils # (auto) 0.05 K/uL (0.00-0.20); Basophils % (auto) 0.5 %; Eosinophils # (auto) 0.09 K/uL (0.00-0.50); Eosinophils % (auto) 0.9 %; Hematocrit (blood only) 33.5 % (37.0-47.0); Hemoglobin 10.6 g/dl (12.0-16.0); Immature Granulocytes # (auto) 0.02 K/uL (0.01-0.20); Immature Granulocytes % (auto) 0.2 %; Lymphocytes # (auto) 1.24 K/uL (1.20-3.40); Lymphocytes % (auto) 12.4 %; Mean Corpuscular Hemoglobin 28.1 pg (25.0-34.0); Mean Corpuscular Hgb Conc 31.6 g/dL (32.0-36.0); Mean Corpuscular Volume 88.9 fL (80.0-100.0); Mean Platelet Volume 10.6 fL (9.4-12.4); Monocytes # (auto) 0.73 K/uL (0.11-0.59); Monocytes % (auto) 7.3 %; Neutrophils # (auto) 7.86 K/uL (1.40-6.50); Neutrophils % (auto) 78.7 %; Platelet Count 228 K/uL (130-400); RDW Coefficient of Variation 14.4 % (11.5-14.5); RDW Standard Deviation 46.4 fL (36.4-46.3); Red Blood Count 3.77 M/uL (4.20-5.40); White Blood Count 9.99 K/ul (4.8-10.8)
[2023-11-05 06:58] LABS: BUN Creatinine Ratio 33.3 (10-20); Creatinine Clr Calc Pharmacy 51.9 ml/min; Est GFR (African American) 107.6 ml/min; Est GFR (Non-African American) 92.8 ml/min; Phosphorus 3.5 mg/dl (2.5-4.9); Potassium 4.1 mmol/L (3.5-5.1)
--- NOTE | 2023-11-05 08:01 | Electrocardiogram Report ---
Test Reason : Blood Pressure : / mmHG Vent. Rate : 077 BPM Atrial Rate : 077 BPM P-R Int : 150 ms QRS Dur : 080 ms QT Int : 384 ms P-R-T Axes : 065 025 056 degrees QTc Int : 434 ms Normal sinus rhythm Poor R wave progression, consider anterior AL vs. lead placement vs. LVH Abnormal ECG When compared with ECG of 13-AUG-2022 21:10, PRWP now present Confirmed by Thomas Branham ([id number]) on 11/05/2023 8:01:42 AM Referred By: Erin Abdi Confirmed By:Thomas Branham
--- NOTE | 2023-11-05 10:50 | XRay Report ---
XR KUB/Abdomen 1 view CLINICAL HISTORY: sbo TECHNIQUE: 1 view of the abdomen was obtained. Comparison: Comparison is made to abdomen radiographs 03/11/[address] abdomen pelvis 11/04/2023 FINDINGS: Lung bases are unremarkable. Degenerative changes are seen in the visualized skeleton. Gas distended loops of small bowel measure up to 40 mm in diameter. Small stool burden is seen. IMPRESSION: Findings compatible with ongoing small bowel obstruction. ACT 112: Negative or not required by law. Electronically signed by: Luis Manuel Wen M.D. 11/05/2023 10:49 AM
--- NOTE | 2023-11-05 11:46 | Surgery Consultation ---
Date of Consultation November 05, 2023 Assessment & Plan (1) SBO (small bowel obstruction): Patient is 88 yo female with PMH of TIA, HTN, osteoarthritis, that presented the [facility] ER yesterday with c/o dehydration and weakness, and reports of not having a bowel movement for a few days. She denies nausea or vomiting and does not routinely take a stool softener. The patient reports that she had not been drinking as much as she should secondary to her not being very mobile from her osteoarthritis. A CT scan last night was reading a high grade SBO. On exam the patient is not complaining of any abdominal pain at present time, she reports passing flatus and denies nausea or vomiting. Abdomen is soft non tender. VSS a KUB from this am is reading a continued SBO. WBC 9 (13). Nursing has documented BM for pt this AM ok with sips and chips Continue IV antibiotics will continue to monitor Supervising Physician Co-Signing Physician Notes I personally saw and evaluated the patient with Maite BOLIVAR and agree with the assessment and plan. 88 yo female with SBO Her CT images and results were personally viewed and interpreted by myself She has been admitted to medicine and is currently without abdominal pain and passing flatus If continues to improve, can trial clear liquids later tonight versus tomorrow No plans for surgical intervention at this time History of Present Illness Reason for Consultation: SBO Requesting Physician: Dr. Byrd Attending Physician: Taylor Byrd MD History of Present Illness Patient is 88 yo female with PMH of TIA, HTN, osteoarthritis, that presented the [facility] ER yesterday with c/o dehydration and weakness, and reports of not having a bowel movement for a few days. She denies nausea or vomiting and does not routinely take a stool softener. The patient reports that she had not been drinking as much as she should secondary to her not being very mobile from her osteoarthritis. Allergies Allergy/AdvReac Type Severity Reaction Status Date / Time acetaminophen Allergy Severe "HALLUCINATION,DREAM Unverified 04/08/21 16:39 HORRIBLY" hydrocodone Allergy Severe "HALLUCINATION,DREAM Unverified 04/08/21 16:39 HORRIBLY" oxycodone Allergy Severe "HALLUCINATION,DREAM Unverified 04/08/21 16:39 HORRIBLY" Home Medications Medication Instructions Recorded Confirmed Type alprazolam 0.5 mg tablet (Xanax) 0.5 mg PO BID 08/10/20 11/04/23 History ascorbic acid (vitamin C) 500 mg 1,000 mg PO QAM 08/10/20 11/04/23 History tablet (Vitamin C) aspirin 81 mg tablet,delayed 81 mg PO HS 08/10/20 11/04/23 History release coQ10 (ubiquinol) 100 mg capsule 100 mg PO QDL 08/10/20 11/04/23 History folic acid 400 mcg tablet 400 mg PO QAM 08/10/20 11/04/23 History dtvzizs-oykrpscvs-bxsxsmf D2 500 1 tab PO DAILY 04/08/21 11/04/23 History mg-50 mg-100 unit chewable tablet Patient History Medical History Elevated troponin Fibromyalgia Surgical History History of knee surgery History of hip replacement Social History Smoking Status: Never smoker Hx Alcohol Use: No Hx Substance Use: No Preferred Language: Thai Communication Ability: Effective First Aid Teacher Required: No Beliefs That Will Affect Care: None Current Living Situation: Alone Feels Safe at Home: No Assistive Devices: Walker Review of Systems Constitutional: no fever and no chills Respiratory: no dyspnea Cardiovascular: no chest pain Gastrointestinal: no abdominal pain, no nausea and no vomiting Musculoskeletal: + muscle weakness Physical Exam Physical Exam: alert oriented Constitutional: cooperative and comfortable; no acute distress Respiratory: normal respiratory effort and able to speak in complete sentences; no respiratory distress Cardiovascular: Rate/Rhythm: regular rate Gastrointestinal (Abdomen): Inspection/Auscultation: abdomen not distended Percussion/Palpation: abdomen soft; abdomen nontender Results & Data Vital Signs (Past 12 Hours) Vital Signs Temp Pulse Pulse Resp BP Pulse Ox O2 Del Method 11/05/23 11:23 97.3 F L 66 18 153/79 H 96 Room Air 11/05/23 08:00 Room Air 11/05/23 07:19 97.3 F L 73 20 125/69 97 Room Air 11/05/23 07:00 67 11/05/23 03:41 98.4 F 72 18 146/72 H 95 Room Air 11/05/23 00:18 68 Diagnostic Findings [facility], [place] [phone] XRay Report Patient: SEUN MILLER Admit Date: 11/04/23 MR#: [id number] Address[address]: [address] Acct ID:[id number] Address2: Date: [address] [facility] Zip: [place] [address] Age: 88 Location: 2N Sex: F Room/Bed: N278-2 Att Phy: Taylor Byrd MD Diagnosis: SBO Che Phy: Erin Abdi MD Service Date: 11/05/23 Fam Phy: Interpreting Phy: Luis Manuel Nguyen Phy: Taylor Byrd MD Ordering Phy: Matt Rushing MD cc: ~ XR KUB/Abdomen 1 view CLINICAL HISTORY: sbo TECHNIQUE: 1 view of the abdomen was obtained. Comparison: Comparison is made to abdomen radiographs 03/11/[address] abdomen pelvis 11/04/2023 FINDINGS: Lung bases are unremarkable. Degenerative changes are seen in the visualized skeleton. Gas distended loops of small bowel measure up to 40 mm in diameter. Small stool burden is seen. IMPRESSION: Findings compatible with ongoing small bowel obstruction. ACT 112: Negative or not required by law. Electronically signed by: Luis Manuel Wen M.D. 11/05/2023 10:49 AM Dictated: 11/05/23 1046 Transcribed: 11/05/23 1046 [facility], [place] [phone] CT Scan Report Patient: SEUN MILLER Admit Date: 11/04/23 MR#: [id number] Address[address] Acct ID:[id number] Address2: Date: [address] [facility] Zip: [place] [address] Age: 88 Location: ED Sex: F Room/Bed: Att Phy: Diagnosis: EDEMA Che Phy: Erin Abdi MD Service Date: 11/04/23 Fam Phy: Interpreting Phy: Preet Merino MDAdmit Phy: Ordering Phy: Jyotsna Molina MD cc: ~ CT SCAN OF THE ABDOMEN AND PELVIS WITHOUT IV CONTRAST CLINICAL HISTORY: Generalized abdominal pain. COMPARISON STUDY: Abdominal CT dated 05/17/2016. TECHNIQUE: CT scan of the abdomen and pelvis is performed from the lung bases to the proximal femora. Images are reviewed in the axial, sagittal, and coronal planes. IV contrast was not administered for this examination. Note that the examination was performed in significantly suboptimal fashion without oral and IV contrast. Examination is also degraded by spinal scoliosis and a paucity of intraperitoneal fat. A dose lowering technique was utilized adhering to the principles of ALARA. CT DOSE: 310.66 mGy.cm FINDINGS: Lung bases: The heart is mildly enlarged noting trace pericardial effusion. There are coronary artery calcifications. Mild bronchiectasis is seen at the lung bases. The lung bases are clear noting bibasilar scarring/atelectasis. Liver: The unenhanced liver is normal in size, contour, and attenuation. There is no intrahepatic biliary ductal dilatation. Gallbladder: Unremarkable. Spleen: Normal in size and attenuation. A 3.1 cm cystic focus in the anterior spleen on image #67 is new from 2017. 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 Pancreas: The unenhanced pancreas is atrophic and grossly unremarkable. Adrenal glands: Unremarkable. Kidneys: The unenhanced kidneys are atrophic and without hydronephrosis. There are no renal calculi identified. There is no evidence of contour deforming renal mass lesion. Abdominal vasculature: The abdominal aorta is normal in course and caliber noting tkga-kw-heilvubo atherosclerotic calcification. Bowel: The small bowel loops are slightly distended and fluid-filled, measuring up to 3.7 cm in diameter. A transition point is seen in the central pelvis on image #212. The distal small bowel is decompressed and findings are consistent with a high-grade small bowel obstruction. There is interloop fluid. No pneumatosis intestinalis or portal venous gas is clearly seen. No focally thick- walled bowel loops are clearly seen. The colon is decompressed and there is mild fecal retention. The appendix is not visualized. Peritoneum: There is a small volume of abdominopelvic ascites. No intraperitoneal free air is seen. Lymphadenopathy: None. Pelvic viscera: Evaluation of the pelvis is significantly degraded by streak artifact from bilateral hip arthroplasties. The bladder is decompressed around a Montalvo catheter and could not be evaluated. The uterus is surgically absent. No adnexal lesion is seen. Skeletal structures: The skeletal structures are osteopenic. There is advanced lumbar sacral spondylosis and scoliosis. There are numerous mild and chronic appearing thoracolumbar compression deformities. No lytic or blastic lesions are seen. Bilateral hip arthroplasties are in place. IMPRESSION: 1. Severe/high grade small bowel obstruction. A transition point is suggested in the pelvis, and this is likely on the basis of adhesions. 2. There is interloop fluid and a small volume of abdominopelvic ascites. 3. No intraperitoneal free air is identified, and there is no definite pneumatosis intestinalis or portal venous gas. 4. Additional findings as above. ACT 112: Negative or not required by law. Electronically signed by: Preet Merino M.D. 11/04/2023 4:09 PM Dictated: 11/04/23 1559 Transcribed: 11/04/231558 PG Care Time/CCT Total # of Minutes Spent Total Time Spent with Patient: Total time spent is greater than 50% in coordination of care (as documented) at patient's floor/unit and/or counseling patient: Coding Level of Care Code 99130 INT INP/OBS CARE 3/75MIN Diagnoses SBO (small bowel obstruction) K56.609
--- NOTE | 2023-11-05 15:51 | Hospitalist Progress Note ---
Date of Service November 05, 2023 Assessment & Plan (1) SBO (small bowel obstruction): Plan: Abdominal distention and discomfort for the last few days No bowel movement for 3 days Nausea in the emergency room CT of the abdomen did show high-grade small bowel obstruction Surgery was consulted Will keep her n.p.o., IV fluid and symptomatic medications as needed Will monitor electrolytes while in the hospital Clinically better and has been passing gas and bowel is moved Denies significant abdominal pain KUB showed persistence of obstruction Will continue n.p.o. status now and IV fluid Repeat KUB tomorrow and if clearing will be discharged home (2) Abdominal pain: Plan: Has discomfort but no significant pain Will try to avoid any narcotic pain medications (3) Acute dehydration: Plan: She has not been drinking or eating enough for the last few weeks or so She felt that she was very dry and was brought into the emergency room Clinically dry with normal BUN and creatinine Will give intravenous fluid and monitor kidney function Will continue intravenous fluid for now (4) HTN (hypertension): Plan: History of hypertension but does not take any medications Blood pressure is on the higher side Will start small dose of beta-anny if needed Blood pressure remains on the upper side -will start Toprol-XL and a smaller dose (5) TIA (transient ischemic attack): Plan: History of TIA Has been on aspirin 81 mg with continue Has significant osteoarthritis Mainly the knee joints Will get PT OT evaluation prior to discharge-refused PT OT DVT prophylaxis Subcu heparin CODE STATUS DNR/DNI and that was discussed with the patient in detail Admission and Anticipated Discharge Date Admission Date: November 04, 2023 Subjective 11/05/2023 The patient was seen and examined in medical telemetry unit in presence of the son She has been passing gas and moving bowel Abdomen remains mildly distended and repeat KUB this morning showed persistence of obstruction She was advised to stay tonight though she wanted to go home today Review of Systems Review of Systems: All systems reviewed and are unremarkable except as noted below Physical Exam Physical Exam: Lying in bed without any acute distress Constitutional: + ill appearing and + thin Eyes: PERRL, conjunctivae normal, anicteric sclerae ENMT: external ear and nose normal, oropharynx normal Neck: trachea midline, no thyromegaly Respiratory: no respiratory distress Auscultation: lungs clear to auscultation bilaterally Cardiovascular: Rate/Rhythm: regular rate and regular rhythm; not tachycardic Heart Sounds: normal S1 and normal S2; no murmur Extremities: + edema (1+ edema bilaterally. Chronic change in the right sole of the foot) Gastrointestinal (Abdomen): Inspection/Auscultation: + abdomen distended and normal bowel sounds Percussion/Palpation: + abdomen tender (Mildly tender upper) and abdomen soft Musculoskeletal: No acute arthritis involving any of the joint. Has severe osteoarthritis changes involving the hands and the feet and also the knees Neurologic: normal touch/pain/proprioception and moves all extremities; no focal motor deficits Lymphatic: no cervical or axillary lymphadenopathy Results & Data Results & Data Vital Signs (Past 12 Hours) Vital Signs Temp Pulse Pulse Resp BP Pulse Ox O2 Del Method 11/05/23 15:33 36.4 C L 60 18 163/72 H 96 Room Air 11/05/23 14:00 66 11/05/23 11:23 36.3 C L 66 18 153/79 H 96 Room Air 11/05/23 08:00 Room Air 11/05/23 07:19 36.3 C L 73 20 125/69 97 Room Air 11/05/23 07:00 67 Laboratory Results Short CBC 11/05/23 Range/Units 05:54 WBC 9.99 (4.8-10.8) K/ul Hgb 10.6 L (12.0-16.0) g/dl Hct 33.5 L (37.0-47.0) % Plt Count 228 (130-400) K/uL BMP 11/05/23 05:54 Sodium 140 Potassium 4.1 Chloride 110 H Carbon Dioxide 27 BUN 14 Creatinine 0.42 L Glucose 95 Calcium 8.0 L Medications Administered Current Inpatient Medications Alprazolam (Alprazolam 0.5 Mg Tablet) 0.5 mg PO BID PRIYA Stop: 12/04/23 20:59 Last Admin: 11/05/23 07:55 Dose: 0.5 mg Aspirin (Aspirin 81 Mg Ectab) 81 mg PO HS PRIYA Stop: 12/04/23 20:59 Last Admin: 11/04/23 22:47 Dose: 81 mg Heparin Sodium (Porcine) (Heparin Sod 5,000 Unit/0.5 Ml Vial) 5,000 units SQ Q12 PRIYA Stop: 12/04/23 20:59 Last Admin: 11/05/23 07:55 Dose: 5,000 units Sodium Chloride (Nss) 1,000 mls @ 100 mls/hr IV .Q10H PRIYA Stop: 12/04/23 17:29 Last Admin: 11/05/23 14:49 Dose: 100 mls/hr Ketorolac Tromethamine (Ketorolac Tromethamine 15 Mg/Ml Vial) 15 mg IV Q6H PRN PRN Reason: Pain Stop: 11/09/23 17:19 Metoprolol Tartrate (Metoprolol Tartrate 1 Mg/Ml Vial) 2.5 mg IV Q6 PRN PRN Reason: Blood Pressure - High Stop: 12/04/23 17:59 Ondansetron HCl (Ondansetron Inj 2 Mg/Ml 2 Ml Vial) 4 mg IV Q6H PRN PRN Reason: Nausea And Vomiting Stop: 12/04/23 17:16 (4) HTN (hypertension) Hypertension type: unspecified Qualified Code(s): I10 - Essential (primary) hypertension
[2023-11-05] MEDS: OLANZapine 10 MG/2.1 ML SDV IM STA (17:57)
[2023-11-05] MEDS: METOPROLOL TARTRATE 1 MG/ML VIAL IV PRN (20:19)
[2023-11-05] MEDS: KETOROLAC TROMETHAMINE 15 MG/ML VIAL IV PRN (20:19)
[2023-11-06 08:13] LABS: BUN Creatinine Ratio 27.8 (10-20); Calcium 8.5 mg/dl (8.6-10.3); Creatinine Clr Calc Pharmacy 60.6 ml/min; Est GFR (African American) 113.2 ml/min; Est GFR (Non-African American) 97.6 ml/min
--- NOTE | 2023-11-06 09:09 | Surgery Progress Note ---
Date of Service November 06, 2023 Assessment & Plan (1) SBO (small bowel obstruction): Plan: Pt having BMs passing flatus Denies abd pain Will start on clears advance as tolerated abd soft nontender General surgery will sign off please call with questions or concerns Admission and Anticipated Discharge Date Admission Date: November 04, 2023 Supervising Physician Co-Signing Physician Notes I personally saw and evaluated the patient with Maite BOLIVAR and agree with the assessment and plan. 88 yo female with SBO, resolved Start clears, advance as tolerated Her distension has improved and she has had multiple BM's Can discharge later today if tolerates diet Surgery will sign off, please call with any questions or concerns Subjective Patient having BMs and passing flatus Denies abd pain Review of Systems Gastrointestinal: no abdominal pain, no nausea and no vomiting Physical Exam Constitutional: cooperative and comfortable; no acute distress Respiratory: normal respiratory effort; no respiratory distress Gastrointestinal (Abdomen): Inspection/Auscultation: abdomen not distended Percussion/Palpation: abdomen soft; abdomen nontender Results & Data Vital Signs (Past 12 Hours) Vital Signs Temp Pulse Pulse Resp BP Pulse Ox O2 Del Method 11/06/23 07:45 Room Air 11/06/23 07:40 97.5 F L 73 16 141/76 H 97 Room Air 11/06/23 03:52 97.5 F L 63 20 158/71 H 96 Room Air 11/06/23 01:29 63 11/05/23 23:13 97.3 F L 60 16 134/53 L 96 Room Air 11/05/23 21:52 Room Air Results CBC w Diff Results: RBC 3.77 M/uL (4.20-5.40) L 11/05/23 WBC 9.99 K/ul (4.8-10.8) 11/05/23 Hgb 10.6 g/dl (12.0-16.0) L 11/05/23 Hct 33.5 % (37.0-47.0) L 11/05/23 MCV 88.9 fL (80.0-100.0) 11/05/23 MCH 28.1 pg (25.0-34.0) 11/05/23 MCHC 31.6 g/dL (32.0-36.0) L 11/05/23 RDW Standard Deviation 46.4 fL (36.4-46.3) H 11/05/23 RDW Coefficient of Variation 14.4 % (11.5-14.5) 11/05/23 Plt Count 228 K/uL (130-400) 11/05/23 MPV 10.6 fL (9.4-12.4) 11/05/23 Neutrophils (%) (Auto) 78.7 % 11/05/23 Lymphocytes (%) (Auto) 12.4 % 11/05/23 Monocytes # (Auto) 0.73 K/uL (0.11-0.59) H 11/05/23 Eosinophils # (Auto) 0.09 K/uL (0.00-0.50) 11/05/23 Immature Granulocyte % (Auto) 0.2 % 11/05/23 Neutrophils # (Auto) 7.86 K/uL (1.40-6.50) H 11/05/23 Lymphocytes # (Auto) 1.24 K/uL (1.20-3.40) 11/05/23 Monocytes # (Auto) 0.73 K/uL (0.11-0.59) H 11/05/23 Eosinophils # (Auto) 0.09 K/uL (0.00-0.50) 11/05/23 Basophils # (Auto) 0.05 K/uL (0.00-0.20) 11/05/23 Immature Granulocyte # (Auto) 0.02 K/uL (0.01-0.20) 4 PG Care Time/CCT Total # of Minutes Spent Total Time Spent with Patient: Total time spent is greater than 50% in coordination of care (as documented) at patient's floor/unit and/or counseling patient: Coding Level of Care Code 88340 SUB INP/OBS CARE 06/07MIN Diagnoses SBO (small bowel obstruction) K56.609
[2023-11-06] MEDS: POTASSIUM CHLORIDE CRTAB 20 MEQ TABCR PO STA (11:17)
[2023-11-06] MEDS: POTASSIUM CHLORIDE / WTR 10 MEQ/100 ML PLCT IV SCH (11:17)
--- NOTE | 2023-11-06 12:24 | Hospitalist Progress Note ---
Date of Service November 06, 2023 Assessment & Plan (1) SBO (small bowel obstruction): Plan: Abdominal distention and discomfort for the last few days No bowel movement for 3 days Nausea in the emergency room CT of the abdomen did show high-grade small bowel obstruction Surgery was consulted Will keep her n.p.o., IV fluid and symptomatic medications as needed Will monitor electrolytes while in the hospital Clinically better and has been passing gas and bowel is moved Denies significant abdominal pain KUB showed persistence of obstruction Will continue n.p.o. status now and IV fluid Repeat KUB tomorrow and if clearing will be discharged home She refused to have any more imaging studies She has been passing gas and moving bowel and surgery signed off Will have lunch and if she tolerates it she will be discharged home She wanted to go home and did not want to go for any further imaging studies even if her condition gets worse down the line she will take the responsibility After repeated attempt she refused to stay in the hospital any longer (2) Abdominal pain: Plan: Has discomfort but no significant pain Will try to avoid any narcotic pain medications No more abdominal pain (3) Acute dehydration: Plan: She has not been drinking or eating enough for the last few weeks or so She felt that she was very dry and was brought into the emergency room Clinically dry with normal BUN and creatinine Will give intravenous fluid and monitor kidney function Will continue intravenous fluid for now (4) HTN (hypertension): Plan: History of hypertension but does not take any medications Blood pressure is on the higher side Will start small dose of beta-anny if needed Blood pressure remains on the upper side -will start Toprol-XL and a smaller dose BP is [id number] given any medications (5) TIA (transient ischemic attack): Plan: History of TIA Has been on aspirin 81 mg with continue Has significant osteoarthritis Mainly the knee joints Will get PT OT evaluation prior to discharge-refused PT OT DVT prophylaxis Subcu heparin CODE STATUS DNR/DNI and that was discussed with the patient in detail Likely discharge this afternoon Admission and Anticipated Discharge Date Admission Date: November 04, 2023 Subjective 11/05/2023 The patient was seen and examined in medical telemetry unit in presence of the son She has been passing gas and moving bowel Abdomen remains mildly distended and repeat KUB this morning showed persistence of obstruction She was advised to stay tonight though she wanted to go home today 11/06/2023 Patient was seen and examined in medical telemetry unit She has been moving her bowels and passing gas Surgery signed off Refused to have any further imaging studies and she wants to go home She is adamant that she will leave after lunch and she has been taking the risk of leaving as her symptoms may be back with more severe duty Review of Systems Review of Systems: All systems reviewed and are unremarkable except as noted below Physical Exam Physical Exam: Lying in bed without any acute distress Constitutional: + ill appearing and + thin Eyes: PERRL, conjunctivae normal, anicteric sclerae ENMT: external ear and nose normal, oropharynx normal Neck: trachea midline, no thyromegaly Respiratory: no respiratory distress Auscultation: lungs clear to auscultation bilaterally Cardiovascular: Rate/Rhythm: regular rate and regular rhythm; not tachycardic Heart Sounds: normal S1 and normal S2; no murmur Extremities: no edema Gastrointestinal (Abdomen): Inspection/Auscultation: + abdomen distended and normal bowel sounds Percussion/Palpation: + abdomen tender (Mildly tender upper) and abdomen soft Neurologic: normal touch/pain/proprioception and moves all extremities; no focal motor deficits Lymphatic: no cervical or axillary lymphadenopathy Results & Data Results & Data Vital Signs (Past 12 Hours) Vital Signs Temp Pulse Pulse Resp BP Pulse Ox O2 Del Method 11/06/23 11:03 36.5 C 83 17 125/68 97 Room Air 11/06/23 07:45 Room Air 11/06/23 07:40 36.4 C L 73 16 141/76 H 97 Room Air 11/06/23 07:00 67 11/06/23 03:52 36.4 C L 63 20 158/71 H 96 Room Air 11/06/23 01:29 63 Laboratory Results [facility] 11/06/23 07:12 Sodium 142 Potassium 3.0 L D Chloride 106 Carbon Dioxide 25 BUN 10 Creatinine 0.36 L Glucose 63 L Calcium 8.5 L Medications Administered Current Inpatient Medications Alprazolam (Alprazolam 0.5 Mg Tablet) 0.5 mg PO BID PIRYA Stop: 12/04/23 20:59 Last Admin: 11/06/23 07:46 Dose: 0.5 mg Aspirin (Aspirin 81 Mg Ectab) 81 mg PO HS PRIYA Stop: 12/04/23 20:59 Last Admin: 11/05/23 20:20 Dose: 81 mg Heparin Sodium (Porcine) (Heparin Sod 5,000 Unit/0.5 Ml Vial) 5,000 units SQ Q12 PRIYA Stop: 12/04/23 20:59 Last Admin: 11/06/23 07:46 Dose: 5,000 units Ketorolac Tromethamine (Ketorolac Tromethamine 15 Mg/Ml Vial) 15 mg IV Q6H PRN PRN Reason: Pain Stop: 11/09/23 17:19 Last Admin: 11/05/23 20:19 Dose: 15 mg Metoprolol Tartrate (Metoprolol Tartrate 1 Mg/Ml Vial) 2.5 mg IV Q6 PRN PRN Reason: Blood Pressure - High Stop: 12/04/23 17:59 Last Admin: 11/05/23 20:19 Dose: 2.5 mg Ondansetron HCl (Ondansetron Inj 2 Mg/Ml 2 Ml Vial) 4 mg IV Q6H PRN PRN Reason: Nausea And Vomiting Stop: 12/04/23 17:16 (4) HTN (hypertension) Hypertension type: unspecified Qualified Code(s): I10 - Essential (primary) hypertension
--- NOTE | 2023-11-06 18:54 | Discharge Summary ---
Date of Service November 06, 2023 Admission HPI Per Admitting Provider She is an 88 years old lady with significant past medical history of hypertension, history of TIA and anxiety anxiety disorder on alprazolam 0.5 mg twice daily without any other significant past medical history apparently has been less mobile for a while. For the last few weeks she has not been coming out of bed and eating or drinking the way she is supposed to be. She is also having abdominal swelling with some discomfort and has not had any bowel movement for the last 3 days. She is getting weaker day by day that she hardly comes out of bed to do things for her daily living. She felt that she was very dry and dehydrated and she came to the emergency room for further evaluation. Has abdominal distention but no pain no nausea except in the emergency room and no vomiting. No fever and no chills. Urine has been very dark. CT of the abdomen did show acute intestinal obstruction and from that point she was admitted to medical floor for continuation of care. Surgery consultation was taken as well Admission Exam Per Admitting Provider Physical Exam: Lying in bed without any acute distress Constitutional: + ill appearing and + thin Eyes: PERRL, conjunctivae normal, anicteric sclerae ENMT: external ear and nose normal, oropharynx normal Neck: trachea midline, no thyromegaly Respiratory: no respiratory distress Auscultation: lungs clear to auscultatio n bilaterally Cardiovascular: Rate/Rhythm: regular rate and regular rhythm; not tachycardic Heart Sounds: normal S1 and normal S2; no murmur Extremities: + edema (1+ edema bilaterally. Chronic change in the right sole of the foot) Musculoskeletal: Significant weight changes involving the knees and other joints. Moderate amount of pain with movement of the knee joints Neurologic: Alert, awake and oriented x 3. Generally very weak and lethargic. No focal sensory deficit . Lymphatic: no cervical or axillary lymphadenopathy Principal Diagnosis Small bowel obstruction, acute dehydration, osteoarthritis Discharge Exam Lying in bed without any acute distress Constitutional + ill appearing and + thin Eyes PERRL, conjunctivae normal, anicteric sclerae ENMT external ear and nose normal, oropharynx normal Neck trachea midline, no thyromegaly Respiratory no respiratory distress Auscultation: lungs clear to auscultation bilaterally Cardiovascular Rate/Rhythm: regular rate and regular rhythm; not tachycardic Heart Sounds: normal S1 and normal S2; no murmur Extremities: no edema Gastrointestinal (Abdomen) Inspection/Auscultation: + abdomen distended and normal bowel sounds Percussion/Palpation: + abdomen tender (Mildly tender upper) and abdomen soft Neurologic normal touch/pain/proprioception and moves all extremities; no focal motor deficits Lymphatic no cervical or axillary lymphadenopathy Discharge Data Allergies Allergy/AdvReac Type Severity Reaction Status Date / Time acetaminophen Allergy Severe "HALLUCINATION,DREAM Unverified 04/08/21 16:39 HORRIBLY" hydrocodone Allergy Severe "HALLUCINATION,DREAM Unverified 04/08/21 16:39 HORRIBLY" oxycodone Allergy Severe "HALLUCINATION,DREAM Unverified 04/08/21 16:39 HORRIBLY" Consultations 11/04/23 16:36 ED Decision to Admit Stat 11/04/23 18:07 Consult General Surgery Routine Ordered Studies 11/04/23 14:16 CT Abd and Pelvis [CT abd pelvis wo con] Stat Hospital Course (1) SBO (small bowel obstruction): Abdominal distention and discomfort for the last few days No bowel movement for 3 days Nausea in the emergency room CT of the abdomen did show high-grade small bowel obstruction Surgery was consulted Will keep her n.p.o., IV fluid and symptomatic medications as needed Will monitor electrolytes while in the hospital Clinically better and has been passing gas and bowel is moved Denies significant abdominal pain KUB showed persistence of obstruction Will continue n.p.o. status now and IV fluid Repeat KUB tomorrow and if clearing will be discharged home She refused to have any more imaging studies She has been passing gas and moving bowel and surgery signed off Will have lunch and if she tolerates it she will be discharged home She wanted to go home and did not want to go for any further imaging studies even if her condition gets worse down the line she will take the responsibility After repeated attempt she refused to stay in the hospital any longer (2) Abdominal pain: Has discomfort but no significant pain Will try to avoid any narcotic pain medications No more abdominal pain (3) Acute dehydration: She has not been drinking or eating enough for the last few weeks or so She felt that she was very dry and was brought into the emergency room Clinically dry with normal BUN and creatinine Will give intravenous fluid and monitor kidney function Will continue intravenous fluid for now (4) HTN (hypertension): History of hypertension but does not take any medications Blood pressure is on the higher side Will start small dose of beta-anny if needed Blood pressure remains on the upper side -will start Toprol-XL and a smaller dose BP is [id number] given any medications (5) TIA (transient ischemic attack): History of TIA Has been on aspirin 81 mg with continue Has significant osteoarthritis Mainly the knee joints Will get PT OT evaluation prior to discharge-refused PT OT DVT prophylaxis Subcu heparin CODE STATUS DNR/DNI and that was discussed with the patient in detail Likely discharge this afternoon Total Time Total Time Spent Total Time Spent (In Minutes): 35 minutes Discharge Plan Discharge Items Patient Disposition: Home - Self-Care Reason For Visit: SBO Discharge Diagnosis: Small bowel obstruction, acute dehydration, osteoarthritis Activity: Resume your previous activity Non-emergency contact: Primary Care Provider Call non-emergency contact if: you have any medication questions and your symptoms worsen Follow-up/Referrals: Erin Abdi MD [Primary Care Provider] - (Date & Time 11/13/2023 11:00 AM Provider Davonte Nation PA-C Department [facility] ) Diet: Heart Healthy and Low Fiber Addtl Attending Provider Instructions: Please take precautions to avoid falls Try to drink more fluid Take your medications as advised No change in your medications Please keep appointment with healthcare provider Pending Studies at Discharge: No Stand-Alone Forms: [employer], Smoking Cessation Medications and DC Order Prescriptions: Continued folic acid 400 mcg Tablet 400 mg PO QAM Rx Instructions: otc unable to verify with pharmacy aspirin 81 mg Tablet,Delayed Release (Dr/Ec) 81 mg PO HS Rx Instructions: otc unable to verify with pharmacy alprazolam [Xanax] 0.5 mg tablet 0.5 mg PO BID ascorbic acid (vitamin C) [Vitamin C] 500 mg Tablet 1,000 mg PO QAM Rx Instructions: otc unable to verify with pharmacy coQ10 (ubiquinol) 100 mg Capsule 100 mg PO QDL Rx Instructions: otc unable to verify with pharmacy [id number] D2 500-50-100 mg-mg-unit Tablet,Chewable 1 tab PO DAILY Rx Instructions: otc unable to verify with pharmacy Discharge Orders: Discharge Order (Routine); Ordered 11/06/23 Ordered By: Taylor Byrd Admission Data Admit Date/Time: 06/23/24 17:15 Attending Provider: Taylor Byrd Admit Provider: Taylor Byrd Primary Care Provider: Erin Abdi Other Providers: Taylor Byrd; Saurabh Hwang Other Interventions: Discharge Summary Assessment (RN) Last Done: 11/06/23 13:51
== END 2023-11-06 15:48 | disposition home or self-care (01) | DRG 390 ==
LOC: ED 13:32 → EDINP 17:15 → 2N 20:05